=== PATIENT | male | born 1960 | race Caucasian/White ===

== ENCOUNTER → 2017-06-23 15:24 | Outpatient (CLI) | payer OTHER, SELFPAY ==
--- NOTE | 2017-06-23 15:30 | RAD_ITS ---
STUDY: X-RAY - LUMBAR SPINE REASON FOR EXAM: Male, 56 years old. lumbago with sciatica TECHNIQUE: 5 view(s) of the lumbar spine were obtained. COMPARISON: None FINDINGS: Normal lumbar lordosis. There is multilevel endplate spondylosis of the lumbar vertebrae. There is multi-level degenerative disc disease with multi-level disc space narrowing. The soft tissue structures are unremarkable. RAD/L/S Spine Min 4 Views IMPRESSION: Degenerative changes of the spine. Electronically Signed: Zhanna Vaughan MD at 10:43 EDT Tel , Service support ,
== END ==
PROVIDERS: Family Provider Family Medicine; PCP Family Medicine; Visit Provider Family Medicine
DX: M54.40 Lumbago with sciatica, unspecified side (principal)
CPT/HCPCS: 72110

== ENCOUNTER → 2017-12-09 07:13 | Outpatient (CLI) | payer OTHER, SELFPAY ==
[2017-12-09 10:36] LABS: T4 Free Direct 1.28 ng/dL (0.76-1.46); Thyroid Stim Hormone (TSH) 1.74 uIU/mL (0.358-3.74)
== END ==
PROVIDERS: Family Provider Family Medicine; PCP Family Medicine; Visit Provider Family Medicine
DX: E03.9 Hypothyroidism, unspecified (principal)
CPT/HCPCS: 36415; 84439; 84443

== ENCOUNTER → 2018-12-21 15:58 | Outpatient (CLI) | payer OTHER, SELFPAY ==
[2018-12-21 17:29] LABS: Basophil# 0.06 X10^3/uL; Basophil% 0.9 % (0-1); Eosinophil# 0.28 X10^3/uL; Eosinophils% 4.4 % (0-5); Hematocrit 45.5 % (40-54); Hemoglobin 15.6 g/dL (13.0-16.5); Lymphocyte % 39.1 % (19-41); Mean Corp Hgb Conc 34.3 g/dL (32-36); Mean Corpuscular Hgb 30.4 pg (27.0-32.0); Mean Corpuscular Volume 88.7 fL (80-94); Mean Platelet Vol. 9.3 fl (6.2-12.0); Monocyte# 0.59 X10^3/uL; Monocyte% 9.2 % (0-10); NRBC Flagged by Analyzer 0 % (0-5); Neutrophil # 2.97 X10^3/uL (2.7-7.7); Neutrophil % 46.4 % (47-70); Platelet Count 285 K/mm3 (150-450); RBC Distribution Width CV 12.4 % (11.6-14.6); RBC Distribution Width SD 40.6 fl (35.1-43.9); Red Blood Count 5.13 M/mm3 (4.6-6.2); White Blood Count 6.4 K/mm3 (4.4-11.0)
[2018-12-21 17:48] LABS: Vitamin D,25 Hydroxy 22.5 ng/mL (29.95-100.01)
[2018-12-21 17:56] LABS: Erythrocyte Sedimentation Rate 18 mm/hr (0-20)
[2018-12-21 18:28] LABS: ALB/GLOB Ratio 1.1 RATIO (0.9-2.4); AST(SGOT) 20 U/L (15-37); Alanine Aminotransfer ALT/SGPT 36 U/L (16-61); Albumin, Serum 4.1 g/dL (3.2-5.0); Alkaline Phosphatase 66 U/L (45-117); Anion Gap 7 (5-15); BUN 11 mg/dL (7-18); BUN/Creat Ratio 9.7 RATIO (10-20); CRP < 2.90 mg/L (0.0-3.0); Calcium,Total 9.1 mg/dL (8.5-10.1); Chloride 107 mmol/L (98-107); Cholesterol 194 mg/dL (200); Creatinine, Serum 1.13 mg/dL (0.70-1.30); EST Glomerular Filtration Rate 71 mL/min (>60); Est Glom Filt Rate - Afr Amer 86 mL/min (>60); Globulin 3.9 g/dL (2.2-4.2); Glucose 100 mg/dL (74-106); High Density Lipoprotein 38 mg/dL; Potassium 3.8 mmol/L (3.5-5.1); Sodium Level 140 mmol/L (136-145); T4 Free Direct 1.58 ng/dL (0.76-1.46); Thyroid Stim Hormone (TSH) 0.26 uIU/mL (0.358-3.74); Triglycerides 262 mg/dL; Very Low Density Lipoprotein 52 mg/dL (5-40)
== END ==
PROVIDERS: Family Provider Family Medicine; PCP Family Medicine; Referring Provider Internal Medicine Rheumatology; Visit Provider Internal Medicine Rheumatology
DX: Z00.00 Encounter for general adult medical examination without abnormal findings (principal); M06.9 Rheumatoid arthritis, unspecified; E03.9 Hypothyroidism, unspecified; E55.9 Vitamin D deficiency, unspecified
CPT/HCPCS: 36415; 80053; 80061; 82306; 84439; 84443; 85025; 85652; 86140

== ENCOUNTER → 2019-03-14 14:40 | Outpatient (CLI) | payer OTHER, SELFPAY ==
[2019-03-14 18:13] LABS: Thyroid Stim Hormone (TSH) 2.05 uIU/mL (0.358-3.74); Vitamin D,25 Hydroxy 16.5 ng/mL (29.95-100.01)
== END ==
PROVIDERS: Family Provider Family Medicine; PCP Family Medicine; Referring Provider Family Medicine; Visit Provider Family Medicine
DX: E55.9 Vitamin D deficiency, unspecified (principal); E03.9 Hypothyroidism, unspecified
CPT/HCPCS: 36415; 82306; 84443

== ENCOUNTER → 2019-08-30 09:21 | Outpatient (CLI) | payer OTHER, SELFPAY ==
--- NOTE | 2019-08-30 09:23 | RAD_ITS ---
STUDY: X-RAY CHEST REASON FOR EXAM: Male, 58 years old. RA, [facility] drug therapy TECHNIQUE: PA and lateral views of the chest. COMPARISON: 2010 FINDINGS: Underexpanded, there are chronic interstitial changes in both lung christopher and subtle superimposed patchy opacifications in the lung bases which may represent atelectasis or early infiltrates. No demonstrated effusions. There is no demonstrated pleural abnormality. Normal size heart. Normal mediastinum and noreen. Normal visualized pulmonary arteries. Normal visualized aortic arch and descending thoracic aorta. Normal visualized thoracic spine. Normal visualized ribs, clavicles, and shoulders. There is no demonstrated abnormality of the visualized soft tissue structures of the upper abdomen. RAD/Chest PA and Lateral IMPRESSION: Chronic interstitial changes with superimposed patchy opacifications in both lung bases. Findings suggest either atelectasis or early infiltrates, follow-up recommended to assure resolution Electronically Signed: Trenton Brizuela MD at 9:36 EDT , Service support ,
[2019-08-30 12:43] LABS: Absolute Neutrophil Count 2.8 X10^3/uL (2.0-7.7); Basophil# 0.05 X10^3/uL; Basophil% 0.9 % (0-1); Eosinophil# 0.25 X10^3/uL; Eosinophils% 4.3 % (0-5); Hematocrit 47.7 % (40-54); Hemoglobin 16.1 g/dL (13.0-16.5); Lymphocyte % 37.9 % (19-41); Mean Corp Hgb Conc 33.8 g/dL (32-36); Mean Corpuscular Hgb 31.1 pg (27.0-32.0); Mean Corpuscular Volume 92.3 fL (80-94); Mean Platelet Vol. 9.9 fl (6.2-12.0); Monocyte# 0.46 X10^3/uL; Monocyte% 7.9 % (0-10); NRBC Flagged by Analyzer 0 % (0-5); Neutrophil # 2.83 X10^3/uL (2.7-7.7); Neutrophil % 48.8 % (47-70); Platelet Count 294 K/mm3 (150-450); RBC Distribution Width CV 12.7 % (11.6-14.6); Red Blood Count 5.17 M/mm3 (4.6-6.2); White Blood Count 5.8 K/mm3 (4.4-11.0)
[2019-08-30 12:56] LABS: Erythrocyte Sedimentation Rate 15 mm/hr (0-20)
[2019-08-30 13:02] LABS: Vitamin D,25 Hydroxy 85.6 ng/mL
[2019-08-30 13:09] LABS: AST(SGOT) 16 U/L (15-37); Alanine Aminotransfer ALT/SGPT 36 U/L (16-61); Albumin, Serum 4.1 g/dL (3.2-5.0); Alkaline Phosphatase 74 U/L (45-117); Anion Gap 7 (5-15); BUN 11 mg/dL (7-18); BUN/Creat Ratio 10.4 RATIO (10-20); CRP < 2.90 mg/L (0.0-3.0); Calcium,Total 9.2 mg/dL (8.5-10.1); Chloride 107 mmol/L (98-107); Creatinine, Serum 1.06 mg/dL (0.70-1.30); EST Glomerular Filtration Rate 77 mL/min (>60); Est Glom Filt Rate - Afr Amer 93 mL/min (>60); Glucose 97 mg/dL (74-106); Potassium 4.1 mmol/L (3.5-5.1); Protein, Total 8.1 g/dL (6.4-8.2); Sodium Level 141 mmol/L (136-145)
[2019-08-30 13:39] LABS: Hepatitis B Surface Antibody Non-Reactive; Hepatitis B Surface Antigen Non-Reactive (Nonreactive); Hepatitis C Antibody Non-Reactive (Nonreactive)
[2019-08-31 18:20] LABS: ANTINUCLEAR ANTIBODIES DIRECT Positive (Negative)
[2019-09-01 20:07] LABS: QNTFERON TB Mitogen Value > 10.00 IU/mL (.); QNTFERON TB Nil Value 0.02 IU/mL (.); QNTFERON TB1+ Ag Value 0.01 IU/mL (.); QNTFERON TB2+ Ag Value 0.02 IU/mL (.)
[2019-09-02 00:39] LABS: CCP IgG Antibodies > 250 units (0-19); Hepatitis B Core AB IgM Negative (Negative); QNTIFERON TB Positive Criteria Negative (Negative)
== END ==
PROVIDERS: PCP Family Medicine; Referring Provider Internal Medicine Rheumatology; Visit Provider Internal Medicine Rheumatology
DX: M05.79 Rheumatoid arthritis with rheumatoid factor of multiple sites without organ or systems involvement (principal); Z79.899 Other long term (current) drug therapy; E03.9 Hypothyroidism, unspecified; E55.9 Vitamin D deficiency, unspecified
CPT/HCPCS: 36415; 71046; 80053; 82306; 85025; 85652; 86038; 86140; 86200; 86431; 86480; 86705; 86706; 86803; 87340

== ENCOUNTER → 2019-09-13 15:50 | Outpatient (CLI) | payer OTHER, SELFPAY ==
[2019-09-13 16:59] LABS: EXAGEN MAILED SPECIMEN
[2019-09-13 17:38] LABS: Color, Urine Yellow (Yellow); Glucose, Dipstick Normal (Normal); Ketone-Dipstick Negative (Negative); Leukocyte Esterase-Dipstick Negative /ul (Negative); Nitrite-Dipstick Negative (Negative); Occult Blood-Urine Negative /ul (Negative); Protein-Dipstick Negative (Negative); Urine Bilirubin Dipstick Negative (Negative); Urine Clarity Clear (Clear); Urine Urobilinogen Normal (Normal)
[2019-09-13 18:19] LABS: Protein, Urine (Random) < 6.0 mg/dL (<11.9)
== END ==
PROVIDERS: PCP Family Medicine; Referring Provider Internal Medicine Rheumatology; Visit Provider Internal Medicine Rheumatology
DX: M05.79 Rheumatoid arthritis with rheumatoid factor of multiple sites without organ or systems involvement (principal); Z79.899 Other long term (current) drug therapy; E03.9 Hypothyroidism, unspecified; R76.8 Other specified abnormal immunological findings in serum
CPT/HCPCS: 81002; 82570; 84156

== ENCOUNTER → 2020-03-13 15:15 | Outpatient (CLI) | payer OTHER, SELFPAY ==
[2020-03-13 17:58] LABS: Absolute Lymphocyte Count 2.72 X10^3/uL (0.83-4.51); Absolute Neutrophil Count 3.2 X10^3/uL (2.0-7.7); Basophil# 0.05 X10^3/uL; Basophil% 0.7 % (0-1); Eosinophil# 0.18 X10^3/uL; Eosinophils% 2.7 % (0-5); Hematocrit 43.8 % (40-54); Hemoglobin 14.9 g/dL (13.0-16.5); Lymphocyte # 2.72 X10^3/ul (4.0); Lymphocyte % 40.4 % (19-41); Mean Corpuscular Hgb 30.5 pg (27.0-32.0); Mean Corpuscular Volume 89.6 fL (80-94); Monocyte# 0.55 X10^3/uL; Monocyte% 8.2 % (0-10); NRBC Flagged by Analyzer 0 % (0-5); Neutrophil # 3.21 X10^3/uL (2.7-7.7); Neutrophil % 47.7 % (47-70); Platelet Count 327 K/mm3 (150-450); RBC Distribution Width CV 12.2 % (11.6-14.6); RBC Distribution Width SD 39.8 fl (35.1-43.9); Red Blood Count 4.89 M/mm3 (4.6-6.2); White Blood Count 6.7 K/mm3 (4.4-11.0)
[2020-03-13 18:28] LABS: AST(SGOT) 24 U/L (15-37); Alanine Aminotransfer ALT/SGPT 31 U/L (16-61); Alkaline Phosphatase 71 U/L (45-117); Anion Gap 7 (5-15); BUN 14 mg/dL (7-18); BUN/Creat Ratio 12.5 RATIO (10-20); Calcium,Total 9.1 mg/dL (8.5-10.1); Chloride 106 mmol/L (98-107); Creatinine, Serum 1.12 mg/dL (0.70-1.30); EST Glomerular Filtration Rate 72 mL/min (>60); Est Glom Filt Rate - Afr Amer 87 mL/min (>60); Glucose 79 mg/dL (74-106); Potassium 3.9 mmol/L (3.5-5.1); Sodium Level 139 mmol/L (136-145)
== END ==
PROVIDERS: PCP Family Medicine; Referring Provider Internal Medicine Rheumatology; Visit Provider Internal Medicine Rheumatology
DX: M05.741 Rheumatoid arthritis with rheumatoid factor of right hand without organ or systems involvement (principal); Z79.899 Other long term (current) drug therapy; R76.8 Other specified abnormal immunological findings in serum; E03.9 Hypothyroidism, unspecified
CPT/HCPCS: 36415; 80053; 85025

== ENCOUNTER → 2020-08-28 15:20 | Outpatient (CLI) | payer OTHER, SELFPAY ==
[2020-08-28 17:56] LABS: Absolute Lymphocyte Count 2.61 X10^3/uL (0.83-4.51); Absolute Neutrophil Count 3.5 X10^3/uL (2.0-7.7); Basophil# 0.05 X10^3/uL; Basophil% 0.7 % (0-1); Eosinophil# 0.25 X10^3/uL; Eosinophils% 3.6 % (0-5); Hematocrit 47.3 % (40-54); Hemoglobin 15.5 g/dL (13.0-16.5); Lymphocyte # 2.61 X10^3/ul (0.83-4.51); Lymphocyte % 37.8 % (19-41); Mean Corp Hgb Conc 32.8 g/dL (32-36); Mean Corpuscular Hgb 29.8 pg (27.0-32.0); Mean Corpuscular Volume 90.8 fL (80-94); Mean Platelet Vol. 9.9 fl (6.2-12.0); Monocyte# 0.51 X10^3/uL; Monocyte% 7.4 % (0-10); NRBC Flagged by Analyzer 0 % (0-5); Neutrophil # 3.47 X10^3/uL (2.7-7.7); Neutrophil % 50.2 % (47-70); Platelet Count 286 K/mm3 (150-450); RBC Distribution Width CV 12.6 % (11.6-14.6); RBC Distribution Width SD 41.6 fl (35.1-43.9); Red Blood Count 5.21 M/mm3 (4.6-6.2); White Blood Count 6.9 K/mm3 (4.4-11.0)
[2020-08-28 18:17] LABS: Vitamin D,25 Hydroxy 49.6 ng/mL
[2020-08-28 18:19] LABS: Cholesterol 194 mg/dL (200); High Density Lipoprotein 33 mg/dL; Thyroid Stim Hormone (TSH) 2.61 uIU/mL (0.358-3.74); Triglycerides 364 mg/dL; Very Low Density Lipoprotein 73 mg/dL (5-40)
[2020-08-28 18:42] LABS: ALB/GLOB Ratio 1.3 RATIO (0.9-2.4); AST(SGOT) 19 U/L (15-37); Alanine Aminotransfer ALT/SGPT 34 U/L (16-61); Albumin, Serum 4.4 g/dL (3.2-5.0); Alkaline Phosphatase 63 U/L (45-117); Anion Gap 8 (5-15); BUN 19 mg/dL (7-18); BUN/Creat Ratio 16.5 RATIO (10-20); Calcium,Total 9.1 mg/dL (8.5-10.1); Chloride 105 mmol/L (98-107); Creatinine, Serum 1.15 mg/dL (0.70-1.30); EST Glomerular Filtration Rate 69 mL/min (>60); Est Glom Filt Rate - Afr Amer 84 mL/min (>60); Globulin 3.4 g/dL (2.2-4.2); Glucose 86 mg/dL (74-106); Potassium 3.8 mmol/L (3.5-5.1); Protein, Total 7.8 g/dL (6.4-8.2); Sodium Level 140 mmol/L (136-145)
== END ==
PROVIDERS: Internal Medicine Rheumatology; PCP Family Medicine; Referring Provider Family Medicine; Visit Provider Family Medicine
DX: Z00.00 Encounter for general adult medical examination without abnormal findings (principal); M05.70 Rheumatoid arthritis with rheumatoid factor of unspecified site without organ or systems involvement; Z79.899 Other long term (current) drug therapy; R76.8 Other specified abnormal immunological findings in serum; E03.9 Hypothyroidism, unspecified; E55.9 Vitamin D deficiency, unspecified
CPT/HCPCS: 36415; 80053; 80061; 82306; 84443; 85025

== ENCOUNTER → 2021-02-22 07:13 | Outpatient (CLI) | payer OTHER, SELFPAY ==
[2021-02-22 10:02] LABS: Absolute Lymphocyte Count 3.05 X10^3/uL (0.83-4.51); Absolute Neutrophil Count 2.4 X10^3/uL (2.0-7.7); Basophil# 0.06 X10^3/uL; Basophil% 0.9 % (0-1); Eosinophil# 0.28 X10^3/uL; Eosinophils% 4.3 % (0-5); Hematocrit 46.8 % (40-54); Hemoglobin 15.6 g/dL (13.0-16.5); Lymphocyte # 3.05 X10^3/ul (0.83-4.51); Lymphocyte % 47.2 % (19-41); Mean Corp Hgb Conc 33.3 g/dL (32-36); Mean Corpuscular Hgb 30.4 pg (27.0-32.0); Mean Corpuscular Volume 91.2 fL (80-94); Mean Platelet Vol. 9.8 fl (6.2-12.0); Monocyte# 0.69 X10^3/uL; Monocyte% 10.7 % (0-10); NRBC Flagged by Analyzer 0 % (0-5); Neutrophil # 2.37 X10^3/uL (2.7-7.7); Neutrophil % 36.7 % (47-70); Platelet Count 287 K/mm3 (150-450); RBC Distribution Width CV 12.6 % (11.6-14.6); RBC Distribution Width SD 42.1 fl (35.1-43.9); Red Blood Count 5.13 M/mm3 (4.6-6.2); White Blood Count 6.5 K/mm3 (4.4-11.0)
[2021-02-22 10:17] LABS: ALB/GLOB Ratio 1.1 RATIO (0.9-2.4); AST(SGOT) 22 U/L (15-37); Alanine Aminotransfer ALT/SGPT 39 U/L (16-61); Albumin, Serum 3.9 g/dL (3.2-5.0); Alkaline Phosphatase 64 U/L (45-117); Anion Gap 2 (5-15); BUN 19 mg/dL (7-18); BUN/Creat Ratio 16.5 RATIO (10-20); Chloride 109 mmol/L (98-107); Creatinine, Serum 1.15 mg/dL (0.70-1.30); EST Glomerular Filtration Rate 69 mL/min (>60); Est Glom Filt Rate - Afr Amer 84 mL/min (>60); Globulin 3.7 g/dL (2.2-4.2); Glucose 99 mg/dL (74-106); Potassium 4.4 mmol/L (3.5-5.1); Protein, Total 7.6 g/dL (6.4-8.2); Sodium Level 140 mmol/L (136-145)
== END ==
PROVIDERS: PCP Family Medicine; Referring Provider Internal Medicine Rheumatology; Visit Provider Internal Medicine Rheumatology
DX: M05.70 Rheumatoid arthritis with rheumatoid factor of unspecified site without organ or systems involvement (principal); Z79.899 Other long term (current) drug therapy; R76.8 Other specified abnormal immunological findings in serum; E03.9 Hypothyroidism, unspecified
CPT/HCPCS: 36415; 80053; 85025

== ENCOUNTER → 2021-08-07 | Outpatient (CLI) | payer OTHER, SELFPAY ==
[2021-08-07 17:34] LABS: Absolute Lymphocyte Count 2.44 X10^3/uL (0.83-4.51); Absolute Neutrophil Count 3.6 X10^3/uL (2.0-7.7); Basophil# 0.06 X10^3/uL; Basophil% 0.9 % (0-1); Eosinophils% 2.9 % (0-5); Hematocrit 44.2 % (40-54); Lymphocyte # 2.44 X10^3/ul (0.83-4.51); Lymphocyte % 35.4 % (19-41); Mean Corp Hgb Conc 33.9 g/dL (32-36); Mean Corpuscular Hgb 30.5 pg (27.0-32.0); Mean Corpuscular Volume 89.8 fL (80-94); Mean Platelet Vol. 9.2 fl (6.2-12.0); Monocyte# 0.56 X10^3/uL; Monocyte% 8.1 % (0-10); NRBC Flagged by Analyzer 0 % (0-5); Neutrophil # 3.63 X10^3/uL (2.7-7.7); Neutrophil % 52.6 % (47-70); Platelet Count 255 K/mm3 (150-450); RBC Distribution Width CV 12.7 % (11.6-14.6); RBC Distribution Width SD 41.7 fl (35.1-43.9); Red Blood Count 4.92 M/mm3 (4.6-6.2); White Blood Count 6.9 K/mm3 (4.4-11.0)
[2021-08-07 17:49] LABS: Vitamin D,25 Hydroxy 55.4 ng/mL
[2021-08-07 18:04] LABS: ALB/GLOB Ratio 1.1 RATIO (0.9-2.4); AST(SGOT) 24 U/L (15-37); Alanine Aminotransfer ALT/SGPT 33 U/L (16-61); Albumin, Serum 3.9 g/dL (3.2-5.0); Alkaline Phosphatase 56 U/L (45-117); Anion Gap 7 (5-15); BUN 19 mg/dL (7-18); BUN/Creat Ratio 16.2 RATIO (10-20); Calcium,Total 8.6 mg/dL (8.5-10.1); Chloride 105 mmol/L (98-107); Cholesterol 200 mg/dL (200); Creatinine, Serum 1.17 mg/dL (0.70-1.30); EST Glomerular Filtration Rate 68 mL/min (>60); Est Glom Filt Rate - Afr Amer 82 mL/min (>60); Globulin 3.5 g/dL (2.2-4.2); Glucose 88 mg/dL (74-106); High Density Lipoprotein 43 mg/dL; Potassium 3.7 mmol/L (3.5-5.1); Protein, Total 7.4 g/dL (6.4-8.2); Sodium Level 138 mmol/L (136-145); Triglycerides 137 mg/dL; Very Low Density Lipoprotein 27 mg/dL (5-40)
== END | disposition home or self-care (01) ==
PROVIDERS: PCP Family Medicine; Referring Provider Family Medicine; Visit Provider Family Medicine
DX: M05.70 Rheumatoid arthritis with rheumatoid factor of unspecified site without organ or systems involvement (principal); Z79.899 Other long term (current) drug therapy; R76.8 Other specified abnormal immunological findings in serum; E03.9 Hypothyroidism, unspecified; Z12.5 Encounter for screening for malignant neoplasm of prostate; Z13.220 Encounter for screening for lipoid disorders; N52.9 Male erectile dysfunction, unspecified; E55.9 Vitamin D deficiency, unspecified
CPT/HCPCS: 80053; 80061; 82306; 84153; 84403; 84443; 85025; G0103

== ENCOUNTER → 2021-10-08 | Outpatient (CLI) | payer OTHER, SELFPAY ==
[2021-10-08 18:35] LABS: T4 Free Direct 1.31 ng/dL (0.76-1.46); Thyroid Stim Hormone (TSH) 0.95 uIU/mL (0.358-3.74)
== END | disposition home or self-care (01) ==
LOC: MFPLAB 16:31
PROVIDERS: PCP Family Medicine; Referring Provider Family Medicine; Visit Provider Family Medicine
DX: E03.9 Hypothyroidism, unspecified (principal)
CPT/HCPCS: 36415; 84439; 84443

== ENCOUNTER → 2022-02-14 | Outpatient (CLI) | payer OTHER, SELFPAY ==
[2022-02-14 12:09] LABS: Absolute Lymphocyte Count 2.19 X10^3/uL (0.83-4.51); Absolute Neutrophil Count 3.5 X10^3/uL (2.0-7.7); Basophil# 0.06 X10^3/uL; Basophil% 0.9 % (0-1); Eosinophils% 4.5 % (0-5); Hematocrit 47.4 % (40-54); Hemoglobin 16.1 g/dL (13.0-16.5); Lymphocyte # 2.19 X10^3/ul (0.83-4.51); Lymphocyte % 32.7 % (19-41); Mean Corpuscular Hgb 30.6 pg (27.0-32.0); Mean Corpuscular Volume 89.9 fL (80-94); Mean Platelet Vol. 9.6 fl (6.2-12.0); Monocyte# 0.61 X10^3/uL; Monocyte% 9.1 % (0-10); NRBC Flagged by Analyzer 0 % (0-5); Neutrophil # 3.51 X10^3/uL (2.7-7.7); Neutrophil % 52.5 % (47-70); Platelet Count 295 K/mm3 (150-450); RBC Distribution Width CV 12.3 % (11.6-14.6); RBC Distribution Width SD 40.7 fl (35.1-43.9); Red Blood Count 5.27 M/mm3 (4.6-6.2); White Blood Count 6.7 K/mm3 (4.4-11.0)
[2022-02-14 12:35] LABS: ALB/GLOB Ratio 1.3 RATIO (0.9-2.4); AST(SGOT) 23 U/L (15-37); Alanine Aminotransfer ALT/SGPT 36 U/L (16-61); Albumin, Serum 4.3 g/dL (3.2-5.0); Alkaline Phosphatase 64 U/L (45-117); Anion Gap 8 (5-15); BUN 15 mg/dL (7-18); BUN/Creat Ratio 15.2 RATIO (10-20); Calcium,Total 9.4 mg/dL (8.5-10.1); Chloride 105 mmol/L (98-107); Creatinine, Serum 0.98 mg/dL (0.70-1.30); EST Glomerular Filtration Rate 83 mL/min (>60); Est Glom Filt Rate - Afr Amer 100 mL/min (>60); Globulin 3.3 g/dL (2.2-4.2); Glucose 100 mg/dL (74-106); Potassium 4.3 mmol/L (3.5-5.1); Protein, Total 7.6 g/dL (6.4-8.2); Sodium Level 138 mmol/L (136-145)
== END | disposition home or self-care (01) ==
LOC: MTLAB 10:02
PROVIDERS: PCP Family Medicine; Referring Provider Internal Medicine Rheumatology; Visit Provider Internal Medicine Rheumatology
DX: M05.70 Rheumatoid arthritis with rheumatoid factor of unspecified site without organ or systems involvement (principal); Z79.899 Other long term (current) drug therapy; R76.8 Other specified abnormal immunological findings in serum; E03.9 Hypothyroidism, unspecified
CPT/HCPCS: 36415; 80053; 85025

== ENCOUNTER → 2022-08-08 | Outpatient (CLI) | payer OTHER, SELFPAY ==
[2022-08-08 17:47] LABS: Absolute Neutrophil Count 4.5 X10^3/uL (2.0-7.7); Basophil# 0.06 X10^3/uL; Basophil% 0.8 % (0-1); Eosinophil# 0.19 X10^3/uL; Eosinophils% 2.6 % (0-5); Hematocrit 46.2 % (40-54); Hemoglobin 15.5 g/dL (13.0-16.5); Lymphocyte % 28.2 % (19-41); Mean Corp Hgb Conc 33.5 g/dL (32-36); Mean Corpuscular Hgb 29.9 pg (27.0-32.0); Mean Corpuscular Volume 89.2 fL (80-94); Mean Platelet Vol. 9.7 fl (6.2-12.0); Monocyte% 8.1 % (0-10); NRBC Flagged by Analyzer 0 % (0-5); Neutrophil # 4.48 X10^3/uL (2.7-7.7); Neutrophil % 60.2 % (47-70); Platelet Count 302 K/mm3 (150-450); RBC Distribution Width CV 12.4 % (11.6-14.6); RBC Distribution Width SD 40.8 fl (35.1-43.9); Red Blood Count 5.18 M/mm3 (4.6-6.2); White Blood Count 7.4 K/mm3 (4.4-11.0)
[2022-08-08 18:18] LABS: ALB/GLOB Ratio 1.1 RATIO (0.9-2.4); AST(SGOT) 23 U/L (15-37); Alanine Aminotransfer ALT/SGPT 33 U/L (16-61); Alkaline Phosphatase 65 U/L (45-117); Anion Gap 6 (5-15); BUN 19 mg/dL (7-18); BUN/Creat Ratio 15.3 RATIO (10-20); Calcium,Total 9.1 mg/dL (8.5-10.1); Chloride 109 mmol/L (98-107); Creatinine, Serum 1.24 mg/dL (0.70-1.30); EST Glomerular Filtration Rate 63 mL/min (>60); Est Glom Filt Rate - Afr Amer 77 mL/min (>60); Globulin 3.7 g/dL (2.2-4.2); Glucose 102 mg/dL (74-106); Potassium 4.1 mmol/L (3.5-5.1); Protein, Total 7.7 g/dL (6.4-8.2); Sodium Level 142 mmol/L (136-145)
== END | disposition home or self-care (01) ==
LOC: MTLAB 15:05
PROVIDERS: PCP Family Medicine; Referring Provider Internal Medicine Rheumatology; Visit Provider Internal Medicine Rheumatology
DX: Z79.899 Other long term (current) drug therapy (principal); R76.8 Other specified abnormal immunological findings in serum; E03.9 Hypothyroidism, unspecified
CPT/HCPCS: 36415; 80053; 85025

== ENCOUNTER → 2022-11-17 | Outpatient (CLI) | payer OTHER, SELFPAY ==
[2022-11-17 11:08] LABS: Cholesterol 187 mg/dL (200); High Density Lipoprotein 44 mg/dL; Iron 136 ug/dL (65-175); PSA,Total - Annual Screen 2.47 ng/mL (0.00-4.00); T4 Free Direct 1.61 ng/dL (0.76-1.46); Thyroid Stim Hormone (TSH) 0.04 uIU/mL (0.358-3.74); Triglycerides 144 mg/dL; Very Low Density Lipoprotein 29 mg/dL (5-40)
[2022-11-17 11:40] LABS: Erythrocyte Sedimentation Rate 10 mm/hr (0-20)
[2022-11-17 12:40] LABS: Vitamin B12 258 pg/mL (211-911); Vitamin D,25 Hydroxy 71.4 ng/mL
== END | disposition home or self-care (01) ==
PROVIDERS: PCP Family Medicine; Referring Provider Family Medicine; Visit Provider Family Medicine
DX: E03.9 Hypothyroidism, unspecified (principal); Z13.220 Encounter for screening for lipoid disorders; Z12.5 Encounter for screening for malignant neoplasm of prostate; E55.9 Vitamin D deficiency, unspecified; R53.83 Other fatigue
CPT/HCPCS: 36415; 80061; 82306; 82607; 83540; 84153; 84403; 84439; 84443; 85652; G0103

== ENCOUNTER → 2023-01-27 | Outpatient (CLI) | payer OTHER, SELFPAY ==
[2023-01-27 17:51] LABS: Absolute Lymphocyte Count 2.51 X10^3/uL (0.83-4.51); Absolute Neutrophil Count 4.4 X10^3/uL (2.0-7.7); Basophil# 0.05 X10^3/uL; Basophil% 0.6 % (0-1); Eosinophil# 0.28 X10^3/uL; Eosinophils% 3.5 % (0-5); Hematocrit 47.4 % (40-54); Hemoglobin 15.5 g/dL (13.0-16.5); Lymphocyte # 2.51 X10^3/ul (0.83-4.51); Lymphocyte % 31.3 % (19-41); Mean Corp Hgb Conc 32.7 g/dL (32-36); Mean Corpuscular Hgb 29.8 pg (27.0-32.0); Mean Corpuscular Volume 91.2 fL (80-94); Mean Platelet Vol. 9.6 fl (6.2-12.0); Monocyte# 0.72 X10^3/uL; NRBC Flagged by Analyzer 0 % (0-5); Neutrophil # 4.44 X10^3/uL (2.7-7.7); Neutrophil % 55.5 % (47-70); Platelet Count 285 K/mm3 (150-450); RBC Distribution Width CV 12.6 % (11.6-14.6); RBC Distribution Width SD 42.4 fl (35.1-43.9)
[2023-01-27 18:26] LABS: ALB/GLOB Ratio 1.1 RATIO (0.9-2.4); AST(SGOT) 18 U/L (15-37); Alanine Aminotransfer ALT/SGPT 31 U/L (16-61); Albumin, Serum 3.9 g/dL (3.2-5.0); Alkaline Phosphatase 63 U/L (45-117); Anion Gap 5 (5-15); BUN 16 mg/dL (7-18); BUN/Creat Ratio 13.7 RATIO (10-20); Calcium,Total 8.9 mg/dL (8.5-10.1); Chloride 108 mmol/L (98-107); Creatinine, Serum 1.17 mg/dL (0.70-1.30); EST Glomerular Filtration Rate 68 mL/min (>60); Est Glom Filt Rate - Afr Amer 82 mL/min (>60); Globulin 3.6 g/dL (2.2-4.2); Glucose 80 mg/dL (74-106); Potassium 4.2 mmol/L (3.5-5.1); Protein, Total 7.5 g/dL (6.4-8.2); Sodium Level 140 mmol/L (136-145); T4 Free Direct 1.16 ng/dL (0.76-1.46); Thyroid Stim Hormone (TSH) 0.66 uIU/mL (0.358-3.74)
== END | disposition home or self-care (01) ==
LOC: MTLAB 15:18
PROVIDERS: PCP Family Medicine; Referring Provider Family Medicine; Visit Provider Family Medicine
DX: M05.70 Rheumatoid arthritis with rheumatoid factor of unspecified site without organ or systems involvement (principal); Z79.899 Other long term (current) drug therapy
CPT/HCPCS: 36415; 80053; 84439; 84443; 85025

== ENCOUNTER → 2023-07-16 | Outpatient (CLI) | payer OTHER, SELFPAY ==
[2023-07-16 09:55] LABS: Basophil# 0.08 X10^3/uL; Basophil% 1.3 % (0-1); Eosinophils% 4.8 % (0-5); Hematocrit 48.7 % (40-54); Hemoglobin 16.3 g/dL (13.0-16.5); Lymphocyte % 36.9 % (19-41); Mean Corp Hgb Conc 33.5 g/dL (32-36); Mean Corpuscular Hgb 30.1 pg (27.0-32.0); Mean Platelet Vol. 9.5 fl (6.2-12.0); Monocyte# 0.56 X10^3/uL; NRBC Flagged by Analyzer 0 % (0-5); Neutrophil # 2.99 X10^3/uL (2.7-7.7); Neutrophil % 47.8 % (47-70); Platelet Count 264 K/mm3 (150-450); RBC Distribution Width CV 12.7 % (11.6-14.6); RBC Distribution Width SD 41.5 fl (35.1-43.9); Red Blood Count 5.41 M/mm3 (4.6-6.2); White Blood Count 6.2 K/mm3 (4.4-11.0)
[2023-07-16 10:31] LABS: ALB/GLOB Ratio 1.1 RATIO (0.9-2.4); AST(SGOT) 22 U/L (15-37); Alanine Aminotransfer ALT/SGPT 28 U/L (16-61); Alkaline Phosphatase 63 U/L (45-117); Anion Gap 5 (5-15); BUN 15 mg/dL (7-18); BUN/Creat Ratio 13.3 RATIO (10-20); Calcium,Total 9.2 mg/dL (8.5-10.1); Chloride 108 mmol/L (98-107); Creatinine, Serum 1.13 mg/dL (0.70-1.30); EST Glomerular Filtration Rate 70 mL/min (>60); Est Glom Filt Rate - Afr Amer 85 mL/min (>60); Globulin 3.7 g/dL (2.2-4.2); Glucose 105 mg/dL (74-106); Potassium 4.1 mmol/L (3.5-5.1); Protein, Total 7.7 g/dL (6.4-8.2); Sodium Level 138 mmol/L (136-145)
== END | disposition home or self-care (01) ==
LOC: MTLAB 08:56
PROVIDERS: PCP Family Medicine; Referring Provider Internal Medicine Rheumatology; Visit Provider Internal Medicine Rheumatology
DX: M05.70 Rheumatoid arthritis with rheumatoid factor of unspecified site without organ or systems involvement (principal); Z79.899 Other long term (current) drug therapy; R76.8 Other specified abnormal immunological findings in serum
CPT/HCPCS: 36415; 80053; 85025

== ENCOUNTER → 2024-01-07 | Outpatient (CLI) | payer OTHER, SELFPAY ==
[2024-01-07 12:20] LABS: Erythrocyte Sedimentation Rate 9 mm/hr (0-20)
[2024-01-07 12:30] LABS: Absolute Lymphocyte Count 2.01 X10^3/uL (0.83-4.51); Absolute Neutrophil Count 2.8 X10^3/uL (2.0-7.7); Basophil# 0.04 X10^3/uL; Basophil% 0.7 % (0-1); Eosinophil# 0.34 X10^3/uL; Hematocrit 47.5 % (40-54); Hemoglobin 16.1 g/dL (13.0-16.5); Lymphocyte # 2.01 X10^3/ul (0.83-4.51); Lymphocyte % 35.5 % (19-41); Mean Corp Hgb Conc 33.9 g/dL (32-36); Mean Corpuscular Hgb 30.6 pg (27.0-32.0); Mean Corpuscular Volume 90.1 fL (80-94); Mean Platelet Vol. 9.9 fl (6.2-12.0); Monocyte# 0.49 X10^3/uL; Monocyte% 8.7 % (0-10); NRBC Flagged by Analyzer 0 % (0-5); Neutrophil # 2.77 X10^3/uL (2.7-7.7); Neutrophil % 48.9 % (47-70); Platelet Count 277 K/mm3 (150-450); RBC Distribution Width CV 12.4 % (11.6-14.6); Red Blood Count 5.27 M/mm3 (4.6-6.2); White Blood Count 5.7 K/mm3 (4.4-11.0)
[2024-01-07 12:35] LABS: Vitamin D,25 Hydroxy 49.7 ng/mL
[2024-01-07 12:43] LABS: AST(SGOT) 23 U/L (15-37); Alanine Aminotransfer ALT/SGPT 29 U/L (16-61); Albumin, Serum 3.8 g/dL (3.2-5.0); Alkaline Phosphatase 67 U/L (45-117); Anion Gap 6 (5-15); BUN 14 mg/dL (7-18); BUN/Creat Ratio 13.1 RATIO (10-20); Calcium,Total 9.1 mg/dL (8.5-10.1); Chloride 107 mmol/L (98-107); Cholesterol 219 mg/dL (200); Creatinine, Serum 1.07 mg/dL (0.70-1.30); EST Glomerular Filtration Rate 75 mL/min (>60); Est Glom Filt Rate - Afr Amer 90 mL/min (>60); Globulin 3.9 g/dL (2.2-4.2); Glucose 98 mg/dL (74-106); High Density Lipoprotein 47 mg/dL; PSA,Total - Annual Screen 2.83 ng/mL (0.00-4.00); Potassium 4.1 mmol/L (3.5-5.1); Protein, Total 7.7 g/dL (6.4-8.2); Sodium Level 137 mmol/L (136-145); T4 Free Direct 1.16 ng/dL (0.76-1.46); Triglycerides 147 mg/dL; Very Low Density Lipoprotein 29 mg/dL (5-40)
== END | disposition home or self-care (01) ==
PROVIDERS: PCP Family Medicine; Referring Provider Internal Medicine Rheumatology; Visit Provider Internal Medicine Rheumatology
DX: M05.70 Rheumatoid arthritis with rheumatoid factor of unspecified site without organ or systems involvement (principal); Z79.899 Other long term (current) drug therapy; R76.8 Other specified abnormal immunological findings in serum; E03.9 Hypothyroidism, unspecified; M47.897 Other spondylosis, lumbosacral region; Z13.220 Encounter for screening for lipoid disorders; Z12.5 Encounter for screening for malignant neoplasm of prostate; E55.9 Vitamin D deficiency, unspecified
CPT/HCPCS: 36415; 80053; 80061; 82306; 84153; 84439; 84443; 85025; 85652; G0103

== ENCOUNTER → 2024-07-04 | Outpatient (CLI) | payer OTHER, SELFPAY ==
[2024-07-04 10:45] LABS: Absolute Lymphocyte Count 2.01 X10^3/uL (0.83-4.51); Absolute Neutrophil Count 3.3 X10^3/uL (2.0-7.7); Basophil# 0.05 X10^3/uL; Basophil% 0.8 % (0-1); Eosinophil# 0.26 X10^3/uL; Eosinophils% 4.2 % (0-5); Hematocrit 47.9 % (40-54); Hemoglobin 16.3 g/dL (13.0-16.5); Lymphocyte # 2.01 X10^3/ul (0.83-4.51); Lymphocyte % 32.6 % (19-41); Mean Corpuscular Volume 88.2 fL (80-94); Mean Platelet Vol. 9.8 fl (6.2-12.0); Monocyte# 0.56 X10^3/uL; Monocyte% 9.1 % (0-10); NRBC Flagged by Analyzer 0 % (0-5); Neutrophil # 3.27 X10^3/uL (2.7-7.7); Neutrophil % 53.1 % (47-70); Platelet Count 294 K/mm3 (150-450); RBC Distribution Width CV 12.9 % (11.6-14.6); RBC Distribution Width SD 41.9 fl (35.1-43.9); Red Blood Count 5.43 M/mm3 (4.6-6.2); White Blood Count 6.2 K/mm3 (4.4-11.0)
[2024-07-04 11:38] LABS: ALB/GLOB Ratio 1.3 RATIO (0.9-2.4); AST(SGOT) 22 U/L (<=37); Alanine Aminotransfer ALT/SGPT 22 U/L (<=46); Albumin, Serum 4.3 g/dL (3.4-4.8); Alkaline Phosphatase 75 U/L (40-129); Anion Gap 12 (5-15); BUN 16 mg/dL (4-19); BUN/Creat Ratio 14.6 RATIO (10-20); Calcium,Total 9.3 mg/dL (7.6-11.0); Chloride 104 mmol/L (98-108); Creatinine, Serum 1.09 mg/dL (0.70-1.20); EST Glomerular Filtration Rate 77 (>60); Globulin 3.4 g/dL (2.2-4.2); Glucose 106 mg/dL (70-99); Potassium 4.3 mmol/L (3.3-5.1); Protein, Total 7.6 g/dL (5.9-8.4); Sodium Level 137 mmol/L (133-145); Total Bilirubin 0.44 mg/dL (0.00-1.30)
== END | disposition home or self-care (01) ==
LOC: MTLAB 08:11
PROVIDERS: PCP Family Medicine; Referring Provider Family Medicine; Visit Provider Family Medicine
DX: M05.70 Rheumatoid arthritis with rheumatoid factor of unspecified site without organ or systems involvement (principal); Z79.899 Other long term (current) drug therapy; R76.8 Other specified abnormal immunological findings in serum
CPT/HCPCS: 36415; 80053; 84439; 84443; 85025

== ENCOUNTER → 2024-12-22 | Outpatient (CLI) | payer OTHER, SELFPAY ==
--- OUTSIDE RECORDS SUMMARY | 2024-12-22 14:11 | XMS RPT_ITS | CCD ---
Author Organization [facility] Informat ion Partnership [facility] Care Team Providers Care Consultant Intern Name Role Phone Saturnino Ragsdale Unavailable [phone] BRANDI CRANE LY Attending Unavailab SATURNINO Glass Primary Care Unavail able STADNADOLFO, BRANDI LY Attending Unavailab SATURNINO Glass Primary Care Unavail able STADNICK, BRANDI LY Attending Unavailab le REFERRING, SELF Referring Unavailable SATURNINO RAGSDALE Primary Care [facility]avail able [facility]available Vellanamador, Faith Attending Unavailable Vellanki, Faith Referring Unavailable Jn, Teodoroopher Consulting Unavailable Vellanamador, Faith Attending Unavailable Vellanki, Faith Referring Unavailable [facility], [facility] Unavailable Saturnino Ragsdale Attending Unavailable Jn, Christopher Referring Unavailable Vellanki, Faith Consulting Unavailable [facility], [facility] Unavailable LENA LUQUE Attending Unavailable SATURNINO RAGSDALE MARCUS Primary Care Unavail able Allergies Allergy Classification Reported Allergen(s) Allergy Type Date of Onset Reaction(s) Facility (8 sources) Penicillins; Translations: [Unknown] Propensity to adverse reactions to drug [facility] Medications Current Medications Medication Drug Class(es) Dates Sig (Normalized) Sig (Original) 0.8 ml adalimumab 50 mg/ml prefilled syringe (7 sources) Tumor Necrosis Factor Asha Start: 03-31-2019 inject 40 mg by subcutaneous injection every other week Humira 40 mg/0.8 mL syringe Indications: Seropositive rheumatoid arthritis (HCC) INJECT 40MG SUBCUTANEOUSLY EVERY 2 WEEKS 2 each 5 03/31/2019 Active Start: 03-24-2018 inject 0.8 mL by sub cutaneous injection once HUMIRA 40 mg/0.8 mL syringe Indications: Seropositive rheumatoid arthritis (HCC) Inject 0.8 mL (40 mg total) under the skin every 14 (fourteen) days . 6 each 3 03/24/2018 Active Start: 07-23-2017 HUMIRA 40 mg/0 .8 mL syringe Indications: Seropositive rheumatoid arthritis (HCC) Inject 0.8 mL (40 mg total) under the skin every 14 (fourteen) days. 6 each 3 07/23/2017 Active Start: 03-20-2017 End: 07-23-2017 HUMIRA 40 mg/0.8 mL syringe INJECT 40 MG UNDER THE SKIN EVERY 14 DAYS 6 each 1 03/20/2017 07/23/2017 Discontinued Start: 03-20-2017 HUMIRA 40 mg/0 .8 mL syringe INJECT 40 MG UNDER THE SKIN EVERY 14 DAYS 6 each 1 03/20/2017 Active hydrOXYzine hydrochloride 50 mg oral tablet (2 sources) Antihistamine Start: 07-15-2018 hydrOXYzine (ATARAX) 50 MG tablet Take by mouth as needed . 0 07/15/2018 Active naproxen 500 mg oral tablet (13 sources) Nonsteroidal Anti-inflammatory Drug Start: 11-13-2017 End: 07-12-2019 take 1 tablet by mouth twice daily after mealtime naproxen (NAPROSYN) 500 MG tablet Take 1 (one) tablet (500 mg total) by mouth 2 (two) times a day after meals . 180 tablet 0 07/12/2019 Active Start: 09-21-2015 naproxen (NAPR OSYN) 500 MG tablet TAKE 1 TABLET TWICE A DAY AFTER FOOD 180 tablet 3 09/21/2015 Active NAPROXEN ORAL Ta ke 5 mg by mouth Once or twice a day 0 Active NAPROXEN ORAL Ta ke 5 mg by mouth Once or twice a day Active levothyroxine sodium 0.175 mg oral tablet (6 sources) l-Thyroxine Start: 06-12-2015 take 1 tablet by mouth once daily SYNTHROID 175 mcg tablet Take 175 mcg by mouth daily. 0 06/12/2015 Active Start: 06-12-2015 take 1 tablet by osmany th once daily SYNTHROID 175 mcg tablet Take 175 mcg by mouth daily. 06/12/2015 Active Completed/Discontinued Medications Medication Drug Class(es) Dates Sig (Normalized) Sig (Original) leflunomide 20 mg oral tablet (4 sources) Antirheumatic Agent Start: 12-24-2017 End: 07-20-2018 leflunomide (ARAVA) 20 MG tablet TAKE 1 TABLET DAILY 90 tablet 1 12/24/2017 07/20/2018 Discontinued Start: 06-29-2017 End: 07-23-2017 leflunomide (ARAVA) 20 MG ta blet TAKE 1 TABLET DAILY 90 tablet 1 06/29/2017 07/23/2017 Discontinued Start: 12-29-2016 End: 06-27-2017 leflunomide (ARAVA) 20 MG ta blet TAKE 1 TABLET DAILY 90 tablet 1 12/29/2016 06/27/2017 Discontinued Problems Problem Classification Problem Date Documented Da te Episodic/Chronic Open wounds of extremities (2 sources) Laceration without foreign body of right thumb with damage to nail, initial encounter; Translations: [Laceration without foreign body of right thumb with damage to nail, initial encounter] Onset: 09-24-2024 Episodic Rheumatoid arthritis and related disease (9 sources) Rheumatoid arthritis; 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] Onset: 07-06-2024 01-11-2015 Chronic Thyroid disorders (6 sources) Disorder of thyroid gland; Translations: [Thyroid disease] 01-11-2015 Episodic Results Test Name Value Interpretation Reference Range Facility ED Prov Noteon 09-24-2024 ED Prov Note HPI: 09/24/2024, Time: @NOWNR@ Juan M Vides Corina is a 64 y.o. male presenting to the ED for lacerated right thumb on trailer hitch, beginning today ago. The complaint has been constant, moderate in severity, and worsened by changing position. No alleviating factors. Able to move his thumb and no numbness ROS: Pertinent positives and negatives are stated within HPI, all other systems reviewed and are negative. PAST HISTORY Past Medical History: @[facility] Past Surgical History: has a past surgical history that includes Appendectomy. Social History: reports that he has never smoked. He has never used smokeless tobacco. He reports current alcohol use. He reports that he does not use drugs. Family History: family history includes Diabetes in his father and mother. The patient's home medications have been reviewed. Allergies: Penicillins ---- RESULTS --- All laboratory and radiology results have been personally reviewed by myself LABS: Results for orders placed or performed in visit on 12/22/18 External Lab CRP (Inflammatory) Collection Time: 12/21/18 12:00 AM Result Value Ref Range CRP - Inflammation External Lab Sed Rate Collection Time: 12/21/18 12:00 AM Result Value Ref Range Sed Rate External Lab CBC (With or without Diff) Collection Time: 12/21/18 12:00 AM Result Value Ref Range WBC RBC Hemoglobin Hematocrit Platelets MCV MCH MCHC MPV RDW Neutrophils Lymphocytes Monocytes Eosinophils Basophils Absolute Neutrophils Absolute Lymphocytes Absolute Monocytes Absolute Eosinophils Absolute Basophils RADIOLOGY: Interpreted by Radiologist. XR Finger(s) Right 2+ Views Final Result FINDINGS/ 1. Laceration of the distal aspect of the thumb. Small fragments along the ulnar aspect of the 1st distal phalanx, may represent small fracture fragments. 2. Subcutaneous soft tissue edema about the thumb. 3. Mild degeneration at the 1st metatarsophalangeal joint and the 1st carpometacarpal joint. Workstation ID: [id number] -- NURSING NOTES AND VITALS REVIEWED ---- The nursing notes within the ED encounter and vital signs as below have been reviewed. BP 134/88 (BP Location: Left arm, Patient Position: Sitting) Pulse 63 Temp 98.5 degrees F (36.9 degrees C) (Temporal) Resp 18 Ht 6' Wt 99.8 kg (220 lb) SpO2 96% BMI 29.84 kg/m Oxygen Saturation Interpretation: Normal -----PHYSICAL EXAM Constitutional/General: Alert and oriented x3, well appearing, non toxic in NAD Head: NC/AT Eyes: PERRL, EOMI Mouth: Oropharynx clear, handling secretions, no trismus Neck: Supple, full ROM, no meningeal signs Pulmonary: Lungs clear to auscultation bilaterally, no wheezes, rales, or rhonchi. Not in respiratory distress Cardiovascular: Regular rate and rhythm, no murmurs, gallops, or rubs. 2+ distal pulses Abdomen: Soft, non tender, non distended, Extremities: Moves all extremities x 4. Warm and well perfused, right thumb: Complex jagged laceration approximately 1-1/2 cm and 0.4 cm wide of the right thumb along the nail and nail nearly avulsed, neurovasc intact and full range of motion throughout the thumb, no foreign body and no tendon tear Skin: warm and dry without rash Neurologic: GCS 15, Psych: Normal Affect ------- ED COURSE/MEDICAL DECISION MAKING ----- Medications cephALEXin (KEFLEX) capsule 500 mg (has no administration in time range) Medical Decision Making: Laceration cleaned thoroughly with normal saline solution and Hibiclens, anesthesia with digital block of 4 mL of 1% lidocaine, wound reapproximated with number six 5-0 nylon sutures and nail removed but then replaced as a biological dressing for the thumb, neurovasc intact and no foreign body, also will treat for possible fracture with Keflex Counseling: The emergency provider has spoken with the patient and discussed today's results, in addition to providing specific details for the plan of care and counseling regarding the diagnosis and prognosis. Questions are answered at this time and they are agreeable with the plan. IMPRESSION AND DISPOSITION IMPRESSION 1. Laceration of right thumb without foreign body with damage to nail, initial encounter DISPOSITION Disposition: discharged to home Patient condition is stable Summation Patient Course: Improved ED Medications administered this visit: Medications cephALEXin (KEFLEX) capsule 500 mg (has no administration in time range) New Prescriptions from this visit: New Prescriptions cephAL (more content not included)... [facility] XR FINGER(S) RIGHT 2+ VIEWSo n 09-24-2024 XR FINGER(S) RIGHT 2+ VIEWS EXAMINATION: XR FINGER(S) RIGHT 2+ VIEWS HISTORY: Thumb COMPARISON: None. IMPRESSION: FINDINGS/ 1. Laceration of the distal aspect of the thumb. Small fragments along the ulnar aspect of the 1st distal phalanx, may represent small fracture fragments. 2. Subcutaneous soft tissue edema about the thumb. 3. Mild degeneration at the 1st metatarsophalangeal joint and the 1st carpometacarpal joint. Workstation ID: [id number] Dictated by: DULCE MARIA DE LOS SANTOS on Sat Sep 24, 2024 12:25:29 PM EDT Transcribed by: DULCE MARIA DE LOS SANTOS on Sat Sep 24, 2024 12:25:29 PM EDT Finalized by: DULCE MARIA DE LOS SANTOS on Sat Sep 24, 2024 12:25:29 PM EDT [facility] Comment on above: Order Comment: Injur y/Trauma or Illness?:Injury/Trauma How long have you had these symptoms (acute/chronic)?:Acute Reason for exam?:thumb injury History of cancer?:. Surgeries, chemotherapy, or radiation?:. Type of Exam?:Initial Mechanism of injury?:Thumb on right hand crushing injury and laceration due to part of a trailer landing on it CBC W/Diff, Automatedon 04-2 Absolute Lymph 2.01 X10 3/uL Normal 0.83-4.51 [facility] Comment on above: Performed By: #### L 500.4050, L100.0100 #### [facility] [address] [place], [address] Absolute Neut 3.3 X10 3/uL Normal 2.0-7.7 [facility] Comment on above: Performed By: #### L 500.4050, L100.0100 #### [facility] [address] [place], [address] Basophils/100 WBC (Bld) 0.8 % Normal 0-1 [facility] Comment on above: Performed By: #### L 500.4050, L100.0100 #### [facility] [address] [place], [address] Eosinophils/100 WBC (Bld) 4.2 % Normal 0-5 [facility] Comment on above: Performed By: #### L 500.4050, L100.0100 #### [facility] [address] [place], [address] Erythrocyte distribution width (RBC) [Ratio] 12.9 % Normal 11.6-14.6 [facility] Comment on above: Performed By: #### L 500.4050, L100.0100 #### [facility] [address] [place], [address] Hematocrit (Bld) [Volume fraction] 47.9 % Normal 40-54 [facility] Comment on above: Performed By: #### L 500.4050, L100.0100 #### [facility] [address] [place], [address] Hemoglobin (Bld) [Mass/Vol] 16.3 g/dL Normal 13.0-16.5 [facility] Comment on above: Performed By: #### L 500.4050, L100.0100 #### [facility] [address] [place], [address] IG% 0.200 Normal 0.0-0.9 [facility] Comment on above: Result Comment: IG% - Immature Granulocytes (promyelocytes, myelocytes and metamyelocytes) > 1% indicates that a LEFT SHIFT is Present. Performed By: #### L 500.4050, L100.0100 #### [facility] [address] [place], [address] Lymphocytes/100 WBC (Bld) 32.6 % Normal 19-41 [facility] Comment on above: Performed By: #### L 500.4050, L100.0100 #### [facility] [address] [place], [address] MCH (RBC) [Entitic mass] 30.0 pg Normal 27.0-32.0 [facility] Comment on above: Performed By: #### L 500.4050, L100.0100 #### [facility] [address] [place], [address] MCHC (RBC) [Mass/Vol] 34.0 g/dL Normal 32-36 [facility] Comment on above: Performed By: #### L 500.4050, L100.0100 #### [facility] [address] [place], [address] MCV (RBC) [Entitic vol] 88.2 fL Normal 80-94 [facility] Comment on above: Performed By: #### L 500.4050, L100.0100 #### [facility] [address] [place], [address] Monocytes/100 WBC (Bld) 9.1 % Normal 0-10 [facility] Comment on above: Performed By: #### L 500.4050, L100.0100 #### [facility] [address] [place], [address] Neutrophils/100 WBC (Bld) 53.1 % Normal 47-70 [facility] Comment on above: Performed By: #### L 500.4050, L100.0100 #### [facility] [address] [place], [address] Nucleated RBC (Bld) [#/Vol] 0 10*3/uL Normal 0-5 [facility] Comment on above: Performed By: #### L 500.4050, L100.0100 #### [facility] [address] [place], [address] Platelet mean volume (Bld) [Entitic vol] 9.8 fL Normal 6.2-12.0 [facility] Comment on above: Performed By: #### L 500.4050, L100.0100 #### [facility] [address] [place], [address] Platelets (Bld) [#/Vol] 294 10*3/uL Normal 150-450 [facility] Comment on above: Performed By: #### L 500.4050, L100.0100 #### [facility] [address] [place], [address] RBC (Bld) [#/Vol] 5.43 10*6/uL Normal 4.6-6.2 [facility] Comment on above: Performed By: #### L 500.4050, L100.0100 #### [facility] [address] [place], [address] RDW SD 41.9 fl Normal 35.1-43.9 [facility] Comment on above: Performed By: #### L 500.4050, L100.0100 #### [facility] [address] [place], [address] WBC (Bld) [#/Vol] 6.2 10*3/uL Normal 4.4-11.0 [facility] Comment on above: Performed By: #### L 500.4050, L100.0100 #### [facility] [address] [place], [address] Comprehensive Metabolic Prof [facility] 07-04-2024 Albumin [Mass/Vol] 4.3 g/dL Normal 3.4-4.8 [facility] Comment on above: Order Comment: Order Date: 01/12/24Order Info: 3015-05 - TSHOrder Info: 3023-09 - T4FDJN Perez GETS RESULTS FOR TSH AND FT4 DR. BOB GETSRESULTS FOR CBCD AND CMP Performed By: #### L 500.4050, L100.0100 #### [facility] [address] [place], [address] Albumin/Globulin [Mass ratio] 1.3 {ratio} Normal 0.9-2.4 [facility] Comment on above: Order Comment: Order Date: 01/12/24Order Info: 3015-05 - TSHOrder Info: 3023-09 - T4FDRJN GETS RESULTS FOR TSH AND FT4 DR. BOB GETSRESULTS FOR CBCD AND CMP Performed By: #### L 500.4050, L100.0100 #### [facility] [address] [place], [address] ALK PHOS 75 U/L Normal 40-129 [facility] Comment on above: Order Comment: Order Date: 01/12/24Order Info: 3015-05 - TSHOrder Info: 3023-09 - T4FDRJN GETS RESULTS FOR TSH AND FT4 DR. BOB GETSRESULTS FOR CBCD AND CMP Performed By: #### L 500.4050, L100.0100 #### [facility] [address] [place], [address] ALT [Catalytic activity/Vol] 22 U/L Normal <=46 [facility] Comment on above: Order Comment: Order Date: 01/12/24Order Info: 3015-05 - TSHOrder Info: 3023-09 - T4FDRJN GETS RESULTS FOR TSH AND FT4 DR. BOB GETSRESULTS FOR CBCD AND CMP Performed By: #### L 500.4050, L100.0100 #### [facility] [address] [place], [place], [id number] AST [Catalytic activity/Vol] 22 U/L Normal <=37 [facility] Comment on above: Order Comment: Order Date: 01/12/24Order Info: 3015-05 - TSHOrder Info: 3023-09 - T4FDRJN GETS RESULTS FOR TSH AND FT4 DR. BOB GETSRESULTS FOR CBCD AND CMP Performed By: #### L 500.4050, L100.0100 #### [facility] [address] [place], [address] Bilirubin [Mass/Vol] 0.44 mg/dL Normal 0.00-1.30 [facility] Comment on above: Order Comment: Order Date: 01/12/24Order Info: 3015-05 - TSHOrder Info: 3023-09 - T4FDRJN GETS RESULTS FOR TSH AND FT4 DR. BOB GETSRESULTS FOR CBCD AND CMP Performed By: #### L 500.4050, L100.0100 #### [facility] [address] [place], [place], [id number] (984) BUN/CRE 14.6 RATIO Normal 10-20 [facility] Comment on above: Order Comment: Order Date: 01/12/24Order Info: 3015-05 - TSHOrder Info: 3023-09 - T4FDRJN GETS RESULTS FOR TSH AND FT4 DR. BOB GETSRESULTS FOR CBCD AND CMP Performed By: #### L 500.4050, L100.0100 #### [facility] [address] [place], [address] Calcium [Mass/Vol] 9.3 mg/dL Normal 7.6-11.0 [facility] Comment on above: Order Comment: Order Date: 01/12/24Order Info: 3 - TSHOrder Info: 3023-09 - T4FDRJN GETS RESULTS FOR TSH AND FT4 DR. BOB GETSRESULTS FOR CBCD AND CMP Performed By: #### L 500.4050, L100.0100 #### [facility] [address] [place], [place], [address] Chloride [Moles/Vol] 104 mmol/L Normal 98-108 [facility] Comment on above: Order Comment: Order Date: 01/12/24Order Info: 3 - TSHOrder Info: 7 - T4FDRJN GETS RESULTS FOR TSH AND FT4 DR. BOB GETSRESULTS FOR CBCD AND CMP Performed By: #### L 500.4050, L100.0100 #### [facility] [address] [place], [place], [phone] (120) CO2 [Moles/Vol] 21.0 mmol/L Normal 21.0-32.0 [facility] Comment on above: Order Comment: Order Date: 01/12/24Order Info: 3015-05 - TSHOrder Info: 7 - T4FDRJN GETS RESULTS FOR TSH AND FT4 DR. BOB GETSRESULTS FOR CBCD AND CMP Performed By: #### L 500.4050, L100.0100 #### [facility] [address] [place], [address] Creatinine [Mass/Vol] 1.09 mg/dL Normal 0.70-1.20 [facility] Comment on above: Order Comment: Order Date: 01/12/24Order Info: 3015-05 - TSHOrder Info: 7 - T4FDRJN GETS RESULTS FOR TSH AND FT4 DR. BOB GETSRESULTS FOR CBCD AND CMP Performed By: #### L 500.4050, L100.0100 #### [facility] [address] [place], [address] GAP 12 Normal 5-15 [facility] Comment on above: Order Comment: Order Date: 01/12/24Order Info: 3 - TSHOrder Info: 3027 - T4FDRJN GETS RESULTS FOR TSH AND FT4 DR. BOB GETSRESULTS FOR CBCD AND CMP Performed By: #### L 500.4050, L100.0100 #### [facility] [address] [place], [address] GFR/1.73 sq M.predicted among non-blacks MDRD (S/P/Bld) [Vol rate/Area] 77 mL/min/{1.73_m2} Normal >60 [facility] Comment on above: Order Comment: Order Date: 01/12/24Order Info: 3 - TSHOrder Info: 3023-09 - T4JN TELLEZ GETS RESULTS FOR TSH AND FT4 DR. BOB GETSRESULTS FOR CBCD AND CMP Result Comment: mL/m in/1.73m2 CKD-EPI Creatinine Equation (2020) Performed By: #### L 500.4050, L100.0100 #### [facility] [address] [place], [address] Globulin (S) [Mass/Vol] 3.4 g/dL Normal 2.2-4.2 [facility] Comment on above: Order Comment: Order Date: 01/12/24Order Info: 3 - TSHOrder Info: 3023-09 - T4JN TELLEZ GETS RESULTS FOR TSH AND FT4 DR. BOB GETSRESULTS FOR CBCD AND CMP Performed By: #### L 500.4050, L100.0100 #### [facility] [address] [place], [address] Glucose [Mass/Vol] 106 mg/dL High 70-99 [facility] Comment on above: Order Comment: Order Date: 01/12/24Order Info: 3 - TSHOrder Info: 3023-09 - T4JN TELLEZ GETS RESULTS FOR TSH AND FT4 DR. BOB GETSRESULTS FOR CBCD AND CMP Performed By: #### L 500.4050, L100.0100 #### [facility] [address] [place], [address] Potassium [Moles/Vol] 4.3 mmol/L Normal 3.3-5.1 [facility] Comment on above: Order Comment: Order Date: 01/12/24Order Info: 3015-3 - TSHOrder Info: 3023-09 - T4JN TELLEZ GETS RESULTS FOR TSH AND FT4 DR. BOB GETSRESULTS FOR CBCD AND CMP Performed By: #### L 500.4050, L100.0100 #### [facility] [address] [place], [address] Sodium [Moles/Vol] 137 mmol/L Normal 133-145 [facility] Comment on above: Order Comment: Order Date: 01/12/24Order Info: 3 - TSHOrder Info: 3023-09 - T4JN TELLEZ GETS RESULTS FOR TSH AND FT4 DR. BOB GETSRESULTS FOR CBCD AND CMP Performed By: #### L 500.4050, L100.0100 #### [facility] [address] [place], [address] T PROT 7.6 g/dL Normal 5.9-8.4 [facility] Comment on above: Order Comment: Order Date: 01/12/24Order Info: 3 - TSHOrder Info: 3023-09 - T4JN TELLEZ GETS RESULTS FOR TSH AND FT4 DR. BOB GETSRESULTS FOR CBCD AND CMP Performed By: #### L 500.4050, L100.0100 #### [facility] [address] [place], [address] Urea nitrogen [Mass/Vol] 16 mg/dL Normal 4-19 [facility] Comment on above: Order Comment: Order Date: 01/12/24Order Info: 3 - TSHOrder Info: 3023-09 - T4JN TELLEZ GETS RESULTS FOR TSH AND FT4 DR. BOB GETSRESULTS FOR CBCD AND CMP Performed By: #### L 500.4050, L100.0100 #### [facility] [address] [place], [address] T4 Free Directon 07-04-2024 T4 FREE DIRECT 1.30 ng/dL Normal 0.76-1.46 [facility] Comment on above: Order Comment: Order Date: 01/12/24Order Info: 3 - TSHOrder Info: 3023-09 - T4JN TELLEZ GETS RESULTS FOR TSH AND FT4 DR. BOB GETSRESULTS FOR CBCD AND CMP Performed By: #### L 500.4050, L100.0100 #### [facility] [address] [place], [address] Thyroid Stim Hormone (TSH)on 07-04-2024 TSH 2.430 uIU/mL Normal 0.300-4.200 [facility] Comment on above: Order Comment: Order Date: 01/12/24Order Info: 3 - TSHOrder Info: 3023-09 - T4JN TELLEZ GETS RESULTS FOR TSH AND FT4 DR. BOB GETSRESULTS FOR CBCD AND CMP Performed By: #### L 500.4050, L100.0100 #### [facility] [address] [place], [address] CBC W/Diff, Automatedon 10-3 Absolute Lymph 2.01 X10 3/uL Normal 0.83-4.51 [facility] Comment on above: Order Comment: DR. Rosario RODRIGUEZ GETS CBCD AND CMP ALL Order Date: 11/05/23 Order Info: [id number] - CBC Order Info: [id number] - SED Performed By: #### L 100.0100 #### [facility] [address] [place], [address] Absolute Neut 2.8 X10 3/uL Normal 2.0-7.7 [facility] Comment on above: Order Comment: DR. Rosario RODRIGUEZ GETS CBCD AND CMP ALL Order Date: 11/05/23 Order Info: [id number] - CBC Order Info: [id number] - SED Performed By: #### L 100.0100 #### [facility] [address] [place], [address] Basophils/100 WBC (Bld) 0.7 % Normal 0-1 [facility] Comment on above: Order Comment: DR. Rosario RODRIGUEZ GETS CBCD AND CMP ALL Order Date: 11/05/23 Order Info: [id number] - CBC Order Info: [id number] - SED Performed By: #### L 100.0100 #### [facility] [address] [place], [address] Eosinophils/100 WBC (Bld) 6.0 % High 0-5 [facility] Comment on above: Order Comment: DR. Rosario RODRIGUEZ GETS CBCD AND CMP ALL Order Date: 11/05/23 Order Info: - CBC Order Info: [id number] - SED Performed By: #### L 100.0100 #### [facility] [address] [place], [address] Erythrocyte distribution width (RBC) [Ratio] 12.4 % Normal 11.6-14.6 [facility] Comment on above: Order Comment: DR. Rosario RODRIGUEZ GETS CBCD AND CMP ALL Order Date: 11/05/23 Order Info: [id number] - CBC Order Info: [id number] - SED Performed By: #### L 100.0100 #### [facility] [address] [place], [address] Hematocrit (Bld) [Volume fraction] 47.5 % Normal 40-54 [facility] Comment on above: Order Comment: DR. Rosario RODRIGUEZ GETS CBCD AND CMP ALL Order Date: 11/05/23 Order Info: [id number] - CBC Order Info: - SED Performed By: #### L 100.0100 #### [facility] [address] [place], [address] Hemoglobin (Bld) [Mass/Vol] 16.1 g/dL Normal 13.0-16.5 [facility] Comment on above: Order Comment: DR. Rosario RODRIGUEZ GETS CBCD AND CMP ALL Order Date: 11/05/23 Order Info: [id number] - CBC Order Info: - SED Performed By: #### L 100.0100 #### [facility] [address] [place], [address] IG% 0.200 Normal 0.0-0.9 [facility] Comment on above: Order Comment: DR. Rosario RODRIGUEZ GETS CBCD AND CMP ALL Order Date: 11/05/23 Order Info: [id number] - CBC Order Info: - SED Result Comment: IG% - Immature Granulocytes (promyelocytes, myelocytes and metamyelocytes) > 1% indicates that a LEFT SHIFT is Present. Performed By: #### L 100.0100 #### [facility] [address] [place], [address] Lymphocytes/100 WBC (Bld) 35.5 % Normal 19-41 [facility] Comment on above: Order Comment: DR. Rosario RODRIGUEZ GETS CBCD AND CMP ALL Order Date: 11/05/23 Order Info: [id number] - CBC Order Info: - SED Performed By: #### L 100.0100 #### [facility] [address] [place], [address] MCH (RBC) [Entitic mass] 30.6 pg Normal 27.0-32.0 [facility] Comment on above: Order Comment: DR. Rosario RODRIGUEZ GETS CBCD AND CMP ALL Order Date: 11/05/23 Order Info: [id number] - CBC Order Info: - SED Performed By: #### L 100.0100 #### [facility] [address] [place], [address] MCHC (RBC) [Mass/Vol] 33.9 g/dL Normal 32-36 [facility] Comment on above: Order Comment: DR. Rosario RODRIGUEZ GETS CBCD AND CMP ALL Order Date: 11/05/23 Order Info: [id number] - CBC Order Info: 42586-9 - SED Performed By: #### L 100.0100 #### [facility] [address] [place], [address] MCV (RBC) [Entitic vol] 90.1 fL Normal 80-94 [facility] Comment on above: Order Comment: DR. Rosario RODRIGUEZ GETS CBCD AND CMP ALL Order Date: 11/05/23 Order Info: - CBC Order Info: [id number] - SED Performed By: #### L 100.0100 #### [facility] [address] [place], [address] Monocytes/100 WBC (Bld) 8.7 % Normal 0-10 [facility] Comment on above: Order Comment: DR. Rosario RODRIGUEZ GETS CBCD AND CMP ALL Order Date: 11/05/23 Order Info: [id number] - CBC Order Info: 87665-8 - SED Performed By: #### L 100.0100 #### [facility] [address] [place], [address] Neutrophils/100 WBC (Bld) 48.9 % Normal 47-70 [facility] Comment on above: Order Comment: DR. Rosario RODRIGUEZ GETS CBCD AND CMP ALL Order Date: 11/05/23 Order Info: [id number] - CBC Order Info: 03814-2 - SED Performed By: #### L 100.0100 #### [facility] [address] [place], [address] Nucleated RBC (Bld) [#/Vol] 0 10*3/uL Normal 0-5 [facility] Comment on above: Order Comment: DR. Rosario RODRIGUEZ GETS CBCD AND CMP ALL Order Date: 11/05/23 Order Info: [id number] - CBC Order Info: 23789-9 - SED Performed By: #### L 100.0100 #### [facility] [address] [place], [address] ( Platelet mean volume (Bld) [Entitic vol] 9.9 fL Normal 6.2-12.0 [facility] Comment on above: Order Comment: DR. Rosario RODRIGUEZ GETS CBCD AND CMP ALL Order Date: 11/05/23 Order Info: - CBC Order Info: - SED Performed By: #### L 100.0100 #### [facility] [address] [place], [address] Platelets (Bld) [#/Vol] 277 10*3/uL Normal 150-450 [facility] Comment on above: Order Comment: DR. Rosario RODRIGUEZ GETS CBCD AND CMP ALL Order Date: 11/05/23 Order Info: - CBC Order Info: - SED Performed By: #### L 100.0100 #### [facility] [address] [place], [address] RBC (Bld) [#/Vol] 5.27 10*6/uL Normal 4.6-6.2 [facility] Comment on above: Order Comment: DR. Rosario RODRIGUEZ GETS CBCD AND CMP ALL Order Date: 11/05/23 Order Info: [id number] - CBC Order Info: - SED Performed By: #### L 100.0100 #### [facility] [address] [place], [address] RDW SD 41.0 fl Normal 35.1-43.9 [facility] Comment on above: Order Comment: DR. Rosario RODRIGUEZ GETS CBCD AND CMP ALL Order Date: 11/05/23 Order Info: - CBC Order Info: - SED Performed By: #### L 100.0100 #### [facility] [address] [place], [address] WBC (Bld) [#/Vol] 5.7 10*3/uL Normal 4.4-11.0 [facility] Comment on above: Order Comment: DR. Rosario RODRIGUEZ GETS CBCD AND CMP ALL Order Date: 11/05/23 Order Info: [id number] - CBC Order Info: 70067-5 - SED Performed By: #### L 100.0100 #### [facility] [address] [place], [address] Comprehensive Metabolic Prof iaon 01-07-2024 Albumin [Mass/Vol] 3.8 g/dL Normal 3.2-5.0 [facility] Comment on above: Order Comment: DR. Rosario RODRIGUEZ GETS CBCD AND CMP ALL Order Date: 11/05/23 Order Info: 07 - CMP Order Info: [id number] - LIPID Order Info: 3 - TSH Order Info: 2856-03 - PSA Order Info: 7 - T4F Performed By: #### L 501.9520, L500.4100, L500.4050, L506.1000, L506.0400, L501.9910, L101.9900 #### [facility] [address] [place], [address] Albumin/Globulin [Mass ratio] 1.0 {ratio} Normal 0.9-2.4 [facility] Comment on above: Order Comment: DR. Rosario RODRIGUEZ GETS CBCD AND CMP ALL Order Date: 11/05/23 Order Info: 785-03 - CMP Order Info: [id number] - LIPID Order Info: 3 - TSH Order Info: 28571 - PSA Order Info: 3024-7 - T4F Performed By: #### L 501.9520, L500.4100, L500.4050, L506.1000, L506.0400, L501.9910, L101.9900 #### [facility] [address] [place], [address] ALK P 67 U/L Normal 45-117 [facility] Comment on above: Order Comment: DR. Rosario RODRIGUEZ GETS CBCD AND CMP ALL Order Date: 11/05/23 Order Info: 785-03 - CMP Order Info: - LIPID Order Info: 3015-05 - TSH Order Info: 2856-03 - PSA Order Info: 30247 - T4F Performed By: #### L 501.9520, L500.4100, L500.4050, L506.1000, L506.0400, L501.9910, L101.9900 #### [facility] [address] [place], [address] ALT [Catalytic activity/Vol] 29 U/L Normal 16-61 [facility] Comment on above: Order Comment: DR. Rosario RODRIGUEZ GETS CBCD AND CMP ALL Order Date: 11/05/23 Order Info: 785-03 - CMP Order Info: - LIPID Order Info: 3015-05 - TSH Order Info: 2856-03 - PSA Order Info: 7 - T4F Performed By: #### L 501.9520, L500.4100, L500.4050, L506.1000, L506.0400, L501.9910, L101.9900 #### [facility] [address] [place], [address] AST [Catalytic activity/Vol] 23 U/L Normal 15-37 [facility] Comment on above: Order Comment: DR. Rosario RODRIGUEZ GETS CBCD AND CMP ALL Order Date: 11/05/23 Order Info: 785-03 - CMP Order Info: - LIPID Order Info: 3015-05 - TSH Order Info: 2856-03 - PSA Order Info: 3024-7 - T4F Performed By: #### L 501.9520, L500.4100, L500.4050, L506.1000, L506.0400, L501.9910, L101.9900 #### [facility] [address] [place], [address] Bilirubin [Mass/Vol] 0.60 mg/dL Normal 0.20-1.00 [facility] Comment on above: Order Comment: DR. Rosario RODRIGUEZ GETS CBCD AND CMP ALL Order Date: 11/05/23 Order Info: 785-03 - CMP Order Info: - LIPID Order Info: 3015-05 - TSH Order Info: 2856-03 - PSA Order Info: 3027 - T4F Result Comment: For patients on eltrombopag therapy, use of Dimension [place] TBIL is not recommended. Performed By: #### L 501.9520, L500.4100, L500.4050, L506.1000, L506.0400, L501.9910, L101.9900 #### [facility] [address] [place], [address] BUN/CRE 13.1 RATIO Normal 10-20 [facility] Comment on above: Order Comment: DR. Rosario RODRIGUEZ GETS CBCD AND CMP ALL Order Date: 11/05/23 Order Info: 785-03 - CMP Order Info: - LIPID Order Info: 3015-05 - TSH Order Info: 2856-03 - PSA Order Info: 7 - T4F Performed By: #### L 501.9520, L500.4100, L500.4050, L506.1000, L506.0400, L501.9910, L101.9900 #### [facility] [address] [place], [address] CA,Total 9.1 mg/dL Normal 8.5-10.1 [facility] Comment on above: Order Comment: DR. Rosario RODRIGUEZ GETS CBCD AND CMP ALL Order Date: 11/05/23 Order Info: 785-03 - CMP Order Info: - LIPID Order Info: 3015-05 - TSH Order Info: 2856-03 - PSA Order Info: 30247 - T4F Performed By: #### L 501.9520, L500.4100, L500.4050, L506.1000, L506.0400, L501.9910, L101.9900 #### [facility] [address] [place], [address] Chloride [Moles/Vol] 107 mmol/L Normal 98-107 [facility] Comment on above: Order Comment: DR. Rosario RODRIGUEZ GETS CBCD AND CMP ALL Order Date: 11/05/23 Order Info: 785- - CMP Order Info: 69746-3 - LIPID Order Info: 3 - TSH Order Info: 2856-03 - PSA Order Info: 3027 - T4F Performed By: #### L 501.9520, L500.4100, L500.4050, L506.1000, L506.0400, L501.9910, L101.9900 #### [facility] [address] [place], [address] CO2 [Moles/Vol] 24.0 mmol/L Normal 21.0-32.0 [facility] Comment on above: Order Comment: DR. Rosario RODRIGUEZ GETS CBCD AND CMP ALL Order Date: 11/05/23 Order Info: 785-03 - CMP Order Info: - LIPID Order Info: 3015-05 - TSH Order Info: 2856-03 - PSA Order Info: 7 - T4F Performed By: #### L 501.9520, L500.4100, L500.4050, L506.1000, L506.0400, L501.9910, L101.9900 #### [facility] [address] [place], [address] Creatinine [Mass/Vol] 1.07 mg/dL Normal 0.70-1.30 [facility] Comment on above: Order Comment: DR. Rosario RODRIGUEZ GETS CBCD AND CMP ALL Order Date: 11/05/23 Order Info: 785-03 - CMP Order Info: 61618-4 - LIPID Order Info: 3 - TSH Order Info: 2856-03 - PSA Order Info: 3024-7 - T4F Result Comment: The validity of the calculated GFR GFRAA in patients over 70 years has not been determined. Clinical correlation is essential. Performed By: #### L 501.9520, L500.4100, L500.4050, L506.1000, L506.0400, L501.9910, L101.9900 #### [facility] [address] [place], [place], [id number] (490) EST GFR - AA 90 mL/min Normal >60 [facility] Comment on above: Order Comment: DR. Rosario RODRIGUEZ GETS CBCD AND CMP ALL Order Date: 11/05/23 Order Info: 785-03 - CMP Order Info: - LIPID Order Info: 3015-05 - TSH Order Info: 2856-03 - PSA Order Info: 3023-09 - T4F Result Comment: Afri can [place] GFR Calc Performed By: #### L 501.9520, L500.4100, L500.4050, L506.1000, L506.0400, L501.9910, L101.9900 #### [facility] [address] [place], [place], [id number] (029) GAP 6 Normal 5-15 [facility] Comment on above: Order Comment: DR. Rosario RODRIGUEZ GETS CBCD AND CMP ALL Order Date: 11/05/23 Order Info: 785-03 - CMP Order Info: - LIPID Order Info: 3015-05 - TSH Order Info: 2856-03 - PSA Order Info: 3023-09 - T4F Performed By: #### L 501.9520, L500.4100, L500.4050, L506.1000, L506.0400, L501.9910, L101.9900 #### [facility] [address] [place], [address] GFR/1.73 sq M.predicted among non-blacks MDRD (S/P/Bld) [Vol rate/Area] 75 mL/min/{1.73_m2} Normal >60 [facility] Comment on above: Order Comment: DR. Rosario RODRIGUEZ GETS CBCD AND CMP ALL Order Date: 11/05/23 Order Info: 785-03 - CMP Order Info: - LIPID Order Info: 3015-05 - TSH Order Info: 28509-06 - PSA Order Info: 3024-7 - T4F Result Comment: Non- GFR Calc Performed By: #### L 501.9520, L500.4100, L500.4050, L506.1000, L506.0400, L501.9910, L101.9900 #### [facility] [address] [place], [address] Globulin (S) [Mass/Vol] 3.9 g/dL Normal 2.2-4.2 [facility] Comment on above: Order Comment: DR. Rosario RODRIGUEZ GETS CBCD AND CMP ALL Order Date: 11/05/23 Order Info: 785-03 - CMP Order Info: - LIPID Order Info: 3015-05 - TSH Order Info: 2856-03 - PSA Order Info: 7 - T4F Performed By: #### L 501.9520, L500.4100, L500.4050, L506.1000, L506.0400, L501.9910, L101.9900 #### [facility] [address] [place], [address] Glucose [Mass/Vol] 98 mg/dL Normal 74-106 [facility] Comment on above: Order Comment: DR. Rosario RODRIGUEZ GETS CBCD AND CMP ALL Order Date: 11/05/23 Order Info: 785-03 - CMP Order Info: - LIPID Order Info: 3015-05 - TSH Order Info: 2856-03 - PSA Order Info: 3024-7 - T4F Performed By: #### L 501.9520, L500.4100, L500.4050, L506.1000, L506.0400, L501.9910, L101.9900 #### [facility] [address] [place], [address] Potassium [Moles/Vol] 4.1 mmol/L Normal 3.5-5.1 [facility] Comment on above: Order Comment: DR. Rosario RODRIGUEZ GETS CBCD AND CMP ALL Order Date: 11/05/23 Order Info: 785- - CMP Order Info: 53781-8 - LIPID Order Info: 3 - TSH Order Info: 2856-03 - PSA Order Info: 3024-7 - T4F Performed By: #### L 501.9520, L500.4100, L500.4050, L506.1000, L506.0400, L501.9910, L101.9900 #### [facility] [address] [place], [address] Sodium [Moles/Vol] 137 mmol/L Normal 136-145 [facility] Comment on above: Order Comment: DR. Rosario RODRIGUEZ GETS CBCD AND CMP ALL Order Date: 11/05/23 Order Info: 785-03 - CMP Order Info: - LIPID Order Info: 3015-05 - TSH Order Info: 2856-03 - PSA Order Info: 3024-7 - T4F Performed By: #### L 501.9520, L500.4100, L500.4050, L506.1000, L506.0400, L501.9910, L101.9900 #### [facility] [address] [place], [address] T PROT 7.7 g/dL Normal 6.4-8.2 [facility] Comment on above: Order Comment: DR. Rosario RODRIGUEZ GETS CBCD AND CMP ALL Order Date: 11/05/23 Order Info: 785-03 - CMP Order Info: 73590-1 - LIPID Order Info: 3 - TSH Order Info: 2856-03 - PSA Order Info: 3024-7 - T4F Performed By: #### L 501.9520, L500.4100, L500.4050, L506.1000, L506.0400, L501.9910, L101.9900 #### [facility] [address] [place], [address] Urea nitrogen [Mass/Vol] 14 mg/dL Normal 7-18 [facility] Comment on above: Order Comment: DR. Rosario RODRIGUEZ GETS CBCD AND CMP ALL Order Date: 11/05/23 Order Info: 785-03 - CMP Order Info: - LIPID Order Info: 3015-05 - TSH Order Info: 2856-03 - PSA Order Info: 3023-09 - T4F Performed By: #### L 501.9520, L500.4100, L500.4050, L506.1000, L506.0400, L501.9910, L101.9900 #### [facility] [address] [place], [place], [id number] Erythrocyte Sed Rateon 01-06 SED RATE 9 mm/hr Normal 0-20 [facility] Comment on above: Order Comment: DR. Rosario RODRIGUEZ GETS CBCD AND CMP ALL Order Date: 11/05/23 Order Info: 98914-7 - CBC Order Info: 06237-2 - SED Performed By: #### L 501.9520, L500.4100, L500.4050, L506.1000, L506.0400, L501.9910, L101.9900 #### [facility] [address] [place], [address] Lipid Profileon 01-07-2024 Cholesterol [Mass/Vol] 219 mg/dL High 200 [facility] Comment on above: Order Comment: DR. Rosario RODRIGUEZ GETS CBCD AND CMP ALL Order Date: 11/05/23 Order Info: 785-03 - CMP Order Info: - LIPID Order Info: 3015-05 - TSH Order Info: 2856-03 - PSA Order Info: 3023-09 - T4F Result Comment: <200 mg/dL Desirable 200-240 mg/dL Borderline >240 mg/dL High Risk Performed By: #### L 501.9520, L500.4100, L500.4050, L506.1000, L506.0400, L501.9910, L101.9900 #### [facility] [address] [place], [address] Cholesterol in HDL [Mass/Vol] 47 mg/dL Normal [facility] Comment on above: Order Comment: DR. Rosario RODRIGUEZ GETS CBCD AND CMP ALL Order Date: 11/05/23 Order Info: 785-03 - CMP Order Info: - LIPID Order Info: 3015-05 - TSH Order Info: 2856-03 - PSA Order Info: 3023-09 - T4F Result Comment: The drugs N-Acetylcysteine and Metamizole may falsely depress this assay. Reference Range HDL <40 mg/dL Low HDL Cholesterol HDL >or= 60 mg/dL High HDL Cholesterol Performed By: #### L 501.9520, L500.4100, L500.4050, L506.1000, L506.0400, L501.9910, L101.9900 #### [facility] [address] [place], [address] Cholesterol in LDL [Mass/Vol] 143 mg/dL High 0-130 [facility] Comment on above: Order Comment: DR. Rosario RODRIGUEZ GETS CBCD AND CMP ALL Order Date: 11/05/23 Order Info: 785-03 - CMP Order Info: - LIPID Order Info: 3015-05 - TSH Order Info: 2856-03 - PSA Order Info: 3023-09 T4F Performed By: #### L 501.9520, L500.4100, L500.4050, L506.1000, L506.0400, L501.9910, L101.9900 #### [facility] [address] [place], [address] Cholesterol in VLDL [Mass/Vol] 29 mg/dL Normal 5-40 [facility] Comment on above: Order Comment: DR. Rosario RODRIGUEZ GETS CBCD AND CMP ALL Order Date: 11/05/23 Order Info: 785-03 - CMP Order Info: - LIPID Order Info: 3015-05 - TSH Order Info: 2856-03 - PSA Order Info: 3023-09 T4F Performed By: #### L 501.9520, L500.4100, L500.4050, L506.1000, L506.0400, L501.9910, L101.9900 #### [facility] [address] [place], [place], [id number] Triglyceride [Mass/Vol] 147 mg/dL Normal [facility] Comment on above: Order Comment: DR. Rosario RODRIGUEZ GETS CBCD AND CMP ALL Order Date: 11/05/23 Order Info: 785-03 - CMP Order Info: - LIPID Order Info: 3015-05 - TSH Order Info: 2856-03 - PSA Order Info: 3023-09 T4F Result Comment: The drugs N-Acetylcysteine and Metamizole may falsely depress this assay. Serum Triglycerides Reference Interval Normal <150 mg/dL Borderline high 150 - 199 mg/dL High 200 - 499 mg/dL Very High > or = 500 mg/dL Performed By: #### L 501.9520, L500.4100, L500.4050, L506.1000, L506.0400, L501.9910, L101.9900 #### [facility] [address] [place], [place], [id number] PSA,Total - Annual Screenon 01-07-2024 PSA,TOT SCREEN 2.83 ng/mL Normal 0.00-4.00 [facility] Comment on above: Order Comment: DR. Rosario RODRIGUEZ GETS CBCD AND CMP ALL Order Date: 11/05/23 Order Info: 785-03 - CMP Order Info: - LIPID Order Info: 3015-05 - TSH Order Info: 2856-03 - PSA Order Info: 3023-09 - T4F Result Comment: This test was performed using the TPSA assay method for the Dimension chemistry system. Values obtained with different assay methods cannot be used interchangably. When changing PSA assays in the course of monitoring a patient, additional sequential testing should be carried out to confirm baseline values. Performed By: #### L 501.9520, L500.4100, L500.4050, L506.1000, L506.0400, L501.9910, L101.9900 #### [facility] [address] [place], [address] T4 Free Directon 01-07-2024 T4 FREE DIRECT 1.16 ng/dL Normal 0.76-1.46 [facility] Comment on above: Order Comment: DR. Rosario RODRIGUEZ GETS CBCD AND CMP ALL Order Date: 11/05/23 Order Info: 785-03 - CMP Order Info: 02141-9 - LIPID Order Info: 3 - TSH Order Info: 2856-03 - PSA Order Info: 3023-09 - T4F Performed By: #### L 501.9520, L500.4100, L500.4050, L506.1000, L506.0400, L501.9910, L101.9900 #### [facility] [address] [place], [address] Thyroid Stim Hormone (TSH)on 01-07-2024 TSH 4.010 uIU/mL High 0.358-3.740 [facility] Comment on above: Order Comment: DR. Rosario RODRIGUEZ GETS CBCD AND CMP ALL Order Date: 11/05/23 Order Info: 785-03 - CMP Order Info: - LIPID Order Info: 30163 - TSH Order Info: 2856-03 - PSA Order Info: 7 - T4F Performed By: #### L 501.9520, L500.4100, L500.4050, L506.1000, L506.0400, L501.9910, L101.9900 #### [facility] [address] [place], [address] Vitamin D,25 Hydroxyon 01-06 Vitamin D 25-OH 49.7 ng/mL Normal [facility] Comment on above: Order Comment: DR. Rosario RODRIGUEZ GETS CBCD AND CMP ALL Order Date: 11/05/23 Order Info: 92796-5 - VITD25 Result Comment: Linda min D 25(OH) Status Range Deficiency <20 ng/mL (50nmol/L) Insufficiency 20 - 30 ng/mL (50 - 75 nmol/L) Sufficiency 30 - 100 ng/mL (75 - 250 nmol/L) Toxicity >100 ng/mL (>250 nmol/L) Performed By: #### L 501.9520, L500.4100, L500.4050, L506.1000, L506.0400, L501.9910, L101.9900 #### [facility] [address] [place], [address] CBC W/Diff, Automatedon 05-0 Absolute Lymph 2.30 X10 3/uL Normal 0.83-4.51 [facility] Comment on above: Performed By: #### L 500.4050, L100.0100 #### [facility] [address] [place], [address] Absolute Neut 3.0 X10 3/uL Normal 2.0-7.7 [facility] Comment on above: Performed By: #### L 500.4050, L100.0100 #### [facility] [address] [place], [address] Basophils/100 WBC (Bld) 1.3 % High 0-1 [facility] Comment on above: Performed By: #### L 500.4050, L100.0100 #### [facility] [address] [place], [address] Eosinophils/100 WBC (Bld) 4.8 % Normal 0-5 [facility] Comment on above: Performed By: #### L 500.4050, L100.0100 #### [facility] [address] [place], [address] Erythrocyte distribution width (RBC) [Ratio] 12.7 % Normal 11.6-14.6 [facility] Comment on above: Performed By: #### L 500.4050, L100.0100 #### [facility] [address] [place], [address] Hematocrit (Bld) [Volume fraction] 48.7 % Normal 40-54 [facility] Comment on above: Performed By: #### L 500.4050, L100.0100 #### [facility] [address] [place], [address] Hemoglobin (Bld) [Mass/Vol] 16.3 g/dL Normal 13.0-16.5 [facility] Comment on above: Performed By: #### L 500.4050, L100.0100 #### [facility] [address] [place], [address] IG% 0.200 Normal 0.0-0.9 [facility] Comment on above: Result Comment: IG% - Immature Granulocytes (promyelocytes, myelocytes and metamyelocytes) > 1% indicates that a LEFT SHIFT is Present. Performed By: #### L 500.4050, L100.0100 #### [facility] [address] [place], [address] Lymphocytes/100 WBC (Bld) 36.9 % Normal 19-41 [facility] Comment on above: Performed By: #### L 500.4050, L100.0100 #### [facility] [address] [place], [address] MCH (RBC) [Entitic mass] 30.1 pg Normal 27.0-32.0 [facility] Comment on above: Performed By: #### L 500.4050, L100.0100 #### [facility] [address] [place], [address] MCHC (RBC) [Mass/Vol] 33.5 g/dL Normal 32-36 [facility] Comment on above: Performed By: #### L 500.4050, L100.0100 #### [facility] [address] [place], [address] MCV (RBC) [Entitic vol] 90.0 fL Normal 80-94 [facility] Comment on above: Performed By: #### L 500.4050, L100.0100 #### [facility] [address] [place], [address] Monocytes/100 WBC (Bld) 9.0 % Normal 0-10 [facility] Comment on above: Performed By: #### L 500.4050, L100.0100 #### [facility] [address] [place], [address] Neutrophils/100 WBC (Bld) 47.8 % Normal 47-70 [facility] Comment on above: Performed By: #### L 500.4050, L100.0100 #### [facility] [address] [place], [address] Nucleated RBC (Bld) [#/Vol] 0 10*3/uL Normal 0-5 [facility] Comment on above: Performed By: #### L 500.4050, L100.0100 #### [facility] [address] [place], [address] Platelet mean volume (Bld) [Entitic vol] 9.5 fL Normal 6.2-12.0 [facility] Comment on above: Performed By: #### L 500.4050, L100.0100 #### [facility] [address] [place], [address] Platelets (Bld) [#/Vol] 264 10*3/uL Normal 150-450 [facility] Comment on above: Performed By: #### L 500.4050, L100.0100 #### [facility] [address] [place], [address] RBC (Bld) [#/Vol] 5.41 10*6/uL Normal 4.6-6.2 [facility] Comment on above: Performed By: #### L 500.4050, L100.0100 #### [facility] [address] [place], [address] RDW SD 41.5 fl Normal 35.1-43.9 [facility] Comment on above: Performed By: #### L 500.4050, L100.0100 #### [facility] [address] [place], [address] WBC (Bld) [#/Vol] 6.2 10*3/uL Normal 4.4-11.0 [facility] Comment on above: Performed By: #### L 500.4050, L100.0100 #### [facility] [address] [place], [address] Comprehensive Metabolic Prof [facility] 07-16-2023 Albumin [Mass/Vol] 4.0 g/dL Normal 3.2-5.0 [facility] Comment on above: Performed By: #### L 500.4050, L100.0100 #### [facility] [address] [place], [address] Albumin/Globulin [Mass ratio] 1.1 {ratio} Normal 0.9-2.4 [facility] Comment on above: Performed By: #### L 500.4050, L100.0100 #### [facility] [address] [place], [place], [address] ALK P 63 U/L Normal 45-117 [facility] Comment on above: Performed By: #### L 500.4050, L100.0100 #### [facility] [address] [place], [address] ALT [Catalytic activity/Vol] 28 U/L Normal 16-61 [facility] Comment on above: Performed By: #### L [id number], L100.0100 #### [facility] [address] [place], [address] AST [Catalytic activity/Vol] 22 U/L Normal 15-37 [facility] Comment on above: Performed By: #### L [id number], L100.0100 #### [facility] [address] [place], [address] Bilirubin [Mass/Vol] 0.40 mg/dL Normal 0.20-1.00 [facility] Comment on above: Result Comment: For patients on eltrombopag therapy, use of Dimension [place] TBIL is not recommended. Performed By: #### L [id number], L100.0100 #### [facility] [address] [place], [address] BUN/CRE 13.3 RATIO Normal 10-20 [facility] Comment on above: Performed By: #### L [id number], L100.0100 #### [facility] [address] [place], [address] CA,Total 9.2 mg/dL Normal 8.5-10.1 [facility] Comment on above: Performed By: #### L [id number], L100.0100 #### [facility] [address] [place], [address] Chloride [Moles/Vol] 108 mmol/L High 98-107 [facility] Comment on above: Performed By: #### L [id number], [id number] #### [facility] [address] [place], [address] CO2 [Moles/Vol] 25.0 mmol/L Normal 21.0-32.0 [facility] Comment on above: Performed By: #### L [id number], L100.0100 #### [facility] [address] [place], [address] Creatinine [Mass/Vol] 1.13 mg/dL Normal 0.70-1.30 [facility] Comment on above: Result Comment: The validity of the calculated GFR GFRAA in patients over 70 years has not been determined. Clinical correlation is essential. Performed By: #### L [id number], L100.0100 #### [facility] [address] [place], [address] EST GFR - AA 85 mL/min Normal >60 [facility] Comment on above: Result Comment: Afri can [place] GFR Calc Performed By: #### L [id number], L100.0100 #### [facility] [address] [place], [address] GAP 5 Normal 5-15 [facility] Comment on above: Performed By: #### L [id number], L100.0100 #### [facility] [address] [place], [address] GFR/1.73 sq M.predicted among non-blacks MDRD (S/P/Bld) [Vol rate/Area] 70 mL/min/{1.73_m2} Normal >60 [facility] Comment on above: Result Comment: Non- GFR Calc Performed By: #### L [id number], L100.0100 #### [facility] [address] [place], [address] Globulin (S) [Mass/Vol] 3.7 g/dL Normal 2.2-4.2 [facility] Comment on above: Performed By: #### L [id number], L100.0100 #### [facility] [address] [place], [address] Glucose [Mass/Vol] 105 mg/dL Normal 74-106 [facility] Comment on above: Result Comment: Fast ing Glucose result from 100 to 125 mg/dL suggests IMPAIRED HOMEOSTASIS per A.D.A. criteria. Performed By: #### L [id number], L100.0100 #### [facility] [address] [place], [address] Potassium [Moles/Vol] 4.1 mmol/L Normal 3.5-5.1 [facility] Comment on above: Performed By: #### L [id number], L100.0100 #### [facility] [address] [place], [address] Sodium [Moles/Vol] 138 mmol/L Normal 136-145 [facility] Comment on above: Performed By: #### L [id number], L100.0100 #### [facility] [address] [place], [address] T PROT 7.7 g/dL Normal 6.4-8.2 [facility] Comment on above: Performed By: #### L [id number], L100.0100 #### [facility] [address] [place], [address] Urea nitrogen [Mass/Vol] 15 mg/dL Normal 7-18 [facility] Comment on above: Performed By: #### L [id number], L100.0100 #### [facility] [address] [place], [address] Absolute lymphocyte countOrd ered By: Royce Ragsdale on 01-27-2023 Lymphocytes Auto (Unsp spec) [#/Vol] 2.51 10*3/uL 0.83-4.51 [facility] Basophil percentageOrdered B y: Royce Ragsdale on 01-27-2023 Basophils/100 WBC (Bld) 0.6 % 0-1 [facility] Bilirubin [Mass/Vol] 0.30 mg/dL 0.20-1.00 [facility] Comment on above: For patients on eltr ombopag therapy, use of Dimension [place] TBIL is not recommended. Chloride [Moles/Vol] 108 mmol/L 98-107 [facility] Eosinophils/100 WBC (Bld) 3.5 % 0-5 [facility] Glucose [Mass/Vol] 80 mg/dL 74-106 [facility] Neutrophils (Bld) [#/Vol] 4.4 10*3/uL 2.0-7.7 [facility] Neutrophils/100 WBC (Bld) 55.5 % 47-70 [facility] Potassium [Moles/Vol] 4.2 mmol/L 3.5-5.1 [facility] Protein [Mass/Vol] 7.5 g/dL 6.4-8.2 [facility] Sodium [Moles/Vol] 140 mmol/L 136-145 [facility] WBC (Bld) [#/Vol] 8.0 10*3/uL 4.4-11.0 [facility] Blood erythrocytes count (nu mber/volume)Ordered By: Royce Ragsdale on 01-27-2023 RBC (Bld) [#/Vol] 5.20 10*6/uL 4.6-6.2 [facility] Blood hemoglobin measurement (mass/volume)Ordered By: Royce Ragsdale on 01-27-2023 Hemoglobin (Bld) [Mass/Vol] 15.5 g/dL 13.0-16.5 [facility] Blood lymphocytes/100 leukoc ytesOrdered By: Royce Ragsdale on 01-27-2023 Lymphocytes/100 WBC (Bld) 31.3 % 19-41 [facility] Blood monocytes/100 leukocyt esOrdered By: Royce Ragsdale on 01-27-2023 Monocytes/100 WBC (Bld) 9.0 % 0-10 [facility] Blood platelet mean volumeOr dered By: Royce Ragsdale on 01-27-2023 Platelet mean volume (Bld) [Entitic vol] 9.6 fL 6.2-12.0 [facility] Determination of erythrocyte mean corpuscular volume (MCV)Ordered By: Royce Ragsdale on 01-27-2023 MCV (RBC) [Entitic vol] 91.2 fL 80-94 [facility] Hematocrit Auto (Bld) [Volum e fraction]Ordered By: Royce Ragsdale on 01-27-2023 Hematocrit (Bld) [Volume fraction] 47.4 % 40-54 [facility] - Chemistry and C hemistry - challengeOrdered By: Royce Ragsdale on 01-27-2023 ALP [Catalytic activity/Vol] 63 U/L 45-117 [facility] ALT [Catalytic activity/Vol] 31 U/L 16-61 [facility] CO2 [Moles/Vol] 27.0 mmol/L 21.0-32.0 [facility] Free T4 [Mass/Vol] 1.16 ng/dL 0.76-1.46 [facility] Globulin (S) [Mass/Vol] 3.6 g/dL 2.2-4.2 [facility] Urea nitrogen/Creatinine [Mass ratio] 13.7 mg/mg 10-20 [facility] - Hematology and Cell countsOrdered By: Royce Ragsdale on 01-27-2023 Erythrocyte distribution width (RBC) [Entitic vol] 42.4 fL 35.1-43.9 [facility] Erythrocyte distribution width (RBC) [Ratio] 12.6 % 11.6-14.6 [facility] Immature granulocytes/100 WBC (Bld) 0.100 % 0.0-0.9 [facility] Comment on above: IG% - Immature Granu locytes (promyelocytes, myelocytes and metamyelocytes) > 1% indicates that a LEFT SHIFT is Present. MCH (RBC) [Entitic mass] 29.8 pg 27.0-32.0 [facility] Nucleated RBC/100 WBC (Bld) [Ratio] 0 % 0-5 [facility] MCHC Auto (RBC) [Mass/Vol]Or dered By: Royce Ragsdale on 01-27-2023 MCHC (RBC) [Mass/Vol] 32.7 g/dL 32-36 [facility] No Panel InformationOrdered By: Royce Ragsdale on 01-27-2023 Estimated GFR (MDRD) Amer 82 mL/min >60 [facility] Comment on above: GFR Calc Estimated GFR (MDRD) Non-Af Amer 68 mL/min >60 [facility] Comment on above: Non- GFR Calc Thyroid Stimulating Hormone (TSH) 0.66 uIU/mL 0.358-3.74 [facility] Platelets bldOrdered By: Thong mullins Jn on 01-27-2023 Platelets (Bld) [#/Vol] 285 10*3/uL 150-450 [facility] Serum or plasma albumin april urement (mass/volume)Ordered By: Royce Ragsdale on 01-27-2023 Albumin [Mass/Vol] 3.9 g/dL 3.2-5.0 [facility] Serum or plasma albumin/glob ulin mass ratioOrdered By: Royce Ragsdale on 01-27-2023 Albumin/Globulin [Mass ratio] 1.1 {ratio} 0.9-2.4 [facility] Serum or plasma calcium april urement (mass/volume)Ordered By: Royce Ragsdale on 01-27-2023 Calcium [Mass/Vol] 8.9 mg/dL 8.5-10.1 [facility] Serum or plasma creatinine m easurement (mass/volume)Ordered By: Royce Ragsdale on 01-27-2023 Creatinine [Mass/Vol] 1.17 mg/dL 0.70-1.30 [facility] Comment on above: The validity of the calculated GFR & GFRAA in patients over 70 years has not been determined. Clinical correlation is essential. Serum or plasma urea nitroge n measurement (mass/volume)Ordered By: Royce Ragsdale on 01-27-2023 Urea nitrogen [Mass/Vol] 16 mg/dL 7-18 [facility] Thin prep Papanicolaou smear with manual screeningOrdered By: Royce Ragsdale on 01-27-2023 Thin prep Papanicolaou smear with manual screening 18 U/L 15-37 [facility] Thin prep Papanicolaou smear with manual screening 5 5-15 [facility] Basophil percentageOrdered B y: Royce Ragsdale on 11-17-2022 Cholesterol [Mass/Vol] 187 mg/dL <200 [facility] Comment on above: <200 mg/dL Desirable 200-240 mg/dL Borderline >240 mg/dL High Risk Testosterone [Mass/Vol] 639.86 ng/dL [facility] Comment on above: CENTRAL 90% REFERENC E RANGES MALE AGE <50 197.44 - 669.58 ng/dL MALE AGE > or = 50 187.72 - 684.19 ng/dL FEMALE AGE <50 8.38 - 35.01 ng/dL FEMALE AGE > or = 50 <7.00 - 35.92 ng/dL Effective as of 10/02/20 Triglyceride [Mass/Vol] 144 mg/dL <199 [facility] Comment on above: The drugs N-Acetylcy steine and Metamizole may falsely depress this assay.Serum Triglycerides Reference Interval Normal <150 mg/dL Borderline high 150 - 199 mg/dL High 200 - 499 mg/dL Very High > or = 500 mg/dL Erythrocyte sedimentation ra teOrdered By: Royce Ragsdale on 11-17-2022 ESR (Bld) [Velocity] 10 mm/h 0-20 [facility] Iron measurement (mass/mass) Ordered By: Royce Ragsdale on 11-17-2022 Iron (Unsp spec) [Mass/Mass] 136 ug/dL 65-175 [facility] - Chemistry and C hemistry - challengeOrdered By: Royce Ragsdale on 11-17-2022 Cobalamin (Vitamin B12) [Mass/Vol] 258 pg/mL 211-911 [facility] Free T4 [Mass/Vol] 1.61 ng/dL 0.76-1.46 [facility] No Panel InformationOrdered By: Royce Ragsdale on 11-17-2022 Prostate Specific Antigen Screen 2.47 ng/mL 0.00-4.00 [facility] Comment on above: This test was perfor med using the TPSA assay method [facility] the[facility] system. Values obtained with differentassay methods cannot be used interchangably.When changing PSA assays in the course of monitoring apatient, additional sequential testing should be carriedout to confirm baseline values. Thyroid Stimulating Hormone (TSH) 0.04 uIU/mL 0.358-3.74 [facility] Vitamin D 25-Hydroxy 71.4 ng/mL [facility] Comment on above: Vitamin D 25(OH) Sta tus Range Deficiency <20 ng/mL (50nmol/L) Insufficiency 20 - 30 ng/mL (50 - 75 nmol/L) Sufficiency 30 - 100 ng/mL (75 - 250 nmol/L) Toxicity >100 ng/mL (>250 nmol/L) Serum or plasma cholesterol in HDL measurement (mass/volume)Ordered By: Royce Ragsdale on 11-17-2022 Cholesterol in HDL [Mass/Vol] 44 mg/dL >40 [facility] Comment on above: The drugs N-Acetylcy steine and Metamizole may falsely depress this assay. Reference Range HDL <40 mg/dL Low HDL Cholesterol HDL >or= 60 mg/dL High HDL Cholesterol Serum or plasma cholesterol in VLDL measurement (mass/volume)Ordered By: Royce Ragsdale on 11-17-2022 Cholesterol in VLDL [Mass/Vol] 29 mg/dL 5-40 [facility] Serum or plasma low density lipoprotein (LDL) cholesterol measurement (mass/volume)Ordered By: Royce Ragsdale on 11-17-2022 Cholesterol in LDL [Mass/Vol] 114 mg/dL 0-130 [facility] Absolute lymphocyte countOrd ered By: Dr. Bob on 08-08-2022 Lymphocytes Auto (Unsp spec) [#/Vol] 2.10 10*3/uL 0.83-4.51 [facility] Basophil percentageOrdered B y: Dr. Bob on 08-08-2022 Basophils/100 WBC (Bld) 0.8 % 0-1 [facility] Bilirubin [Mass/Vol] 0.50 mg/dL 0.20-1.00 [facility] Comment on above: For patients on eltr ombopag therapy, use of Dimension [place] TBIL is not recommended. Chloride [Moles/Vol] 109 mmol/L 98-107 [facility] Eosinophils/100 WBC (Bld) 2.6 % 0-5 [facility] Glucose [Mass/Vol] 102 mg/dL 74-106 [facility] Comment on above: Fasting Glucose resu lt from 100 to 125 mg/dL suggests IMPAIRED HOMEOSTASIS per A.D.A. criteria. Neutrophils (Bld) [#/Vol] 4.5 10*3/uL 2.0-7.7 [facility] Neutrophils/100 WBC (Bld) 60.2 % 47-70 [facility] Potassium [Moles/Vol] 4.1 mmol/L 3.5-5.1 [facility] Protein [Mass/Vol] 7.7 g/dL 6.4-8.2 [facility] Sodium [Moles/Vol] 142 mmol/L 136-145 [facility] WBC (Bld) [#/Vol] 7.4 10*3/uL 4.4-11.0 [facility] Blood erythrocytes count (nu mber/volume)Ordered By: Dr. Bob on 08-08-2022 RBC (Bld) [#/Vol] 5.18 10*6/uL 4.6-6.2 [facility] Blood hemoglobin measurement (mass/volume)Ordered By: Dr. Bob on 08-08-2022 Hemoglobin (Bld) [Mass/Vol] 15.5 g/dL 13.0-16.5 [facility] Blood lymphocytes/100 leukoc ytesOrdered By: Dr. Bob on 08-08-2022 Lymphocytes/100 WBC (Bld) 28.2 % 19-41 [facility] Blood monocytes/100 leukocyt esOrdered By: Dr. Bob on 08-08-2022 Monocytes/100 WBC (Bld) 8.1 % 0-10 [facility] Blood platelet mean volumeOr dered By: Dr. Bob on 08-08-2022 Platelet mean volume (Bld) [Entitic vol] 9.7 fL 6.2-12.0 [facility] Determination of erythrocyte mean corpuscular volume (MCV)Ordered By: Dr. Bob on 08-08-2022 MCV (RBC) [Entitic vol] 89.2 fL 80-94 [facility] Hematocrit Auto (Bld) [Volum e fraction]Ordered By: Dr. Bob on 08-08-2022 Hematocrit (Bld) [Volume fraction] 46.2 % 40-54 [facility] - Chemistry and C hemistry - challengeOrdered By: Dr. Bob on 08-08-2022 ALP [Catalytic activity/Vol] 65 U/L 45-117 [facility] ALT [Catalytic activity/Vol] 33 U/L 16-61 [facility] CO2 [Moles/Vol] 27.0 mmol/L 21.0-32.0 [facility] Globulin (S) [Mass/Vol] 3.7 g/dL 2.2-4.2 [facility] Urea nitrogen/Creatinine [Mass ratio] 15.3 mg/mg 10-20 [facility] - Hematology and Cell countsOrdered By: Dr. Bob on 08-08-2022 Erythrocyte distribution width (RBC) [Entitic vol] 40.8 fL 35.1-43.9 [facility] Erythrocyte distribution width (RBC) [Ratio] 12.4 % 11.6-14.6 [facility] Immature granulocytes/100 WBC (Bld) 0.100 % 0.0-0.9 [facility] Comment on above: IG% - Immature Granu locytes (promyelocytes, myelocytes and metamyelocytes) > 1% indicates that a LEFT SHIFT is Present. MCH (RBC) [Entitic mass] 29.9 pg 27.0-32.0 [facility] Nucleated RBC/100 WBC (Bld) [Ratio] 0 % 0-5 [facility] MCHC Auto (RBC) [Mass/Vol]Or dered By: Dr. Bob on 08-08-2022 MCHC (RBC) [Mass/Vol] 33.5 g/dL 32-36 [facility] No Panel InformationOrdered By: Dr. Bob on 08-08-2022 Estimated GFR (MDRD) Amer 77 mL/min >60 [facility] Comment on above: GFR Calc Estimated GFR (MDRD) Non-Af Amer 63 mL/min >60 [facility] Comment on above: Non- GFR Calc Platelets bldOrdered By: Dr. Bob on 08-08-2022 Platelets (Bld) [#/Vol] 302 10*3/uL 150-450 [facility] Serum or plasma albumin april urement (mass/volume)Ordered By: Dr. Bob on 08-08-2022 Albumin [Mass/Vol] 4.0 g/dL 3.2-5.0 [facility] Serum or plasma albumin/glob ulin mass ratioOrdered By: Dr. Bob on 08-08-2022 Albumin/Globulin [Mass ratio] 1.1 {ratio} 0.9-2.4 [facility] Serum or plasma calcium april urement (mass/volume)Ordered By: Dr. Bob on 08-08-2022 Calcium [Mass/Vol] 9.1 mg/dL 8.5-10.1 [facility] Serum or plasma creatinine m easurement (mass/volume)Ordered By: Dr. Bob on 08-08-2022 Creatinine [Mass/Vol] 1.24 mg/dL 0.70-1.30 [facility] Comment on above: The validity of the calculated GFR & GFRAA in patients over 70 years has not been determined. Clinical correlation is essential. Serum or plasma urea nitroge n measurement (mass/volume)Ordered By: Dr. Bob on 08-08-2022 Urea nitrogen [Mass/Vol] 19 mg/dL 7-18 [facility] Thin prep Papanicolaou smear with manual screeningOrdered By: Dr. Bob on 08-08-2022 Thin prep Papanicolaou smear with manual screening 23 U/L 15-37 [facility] Thin prep Papanicolaou smear with manual screening 6 5-15 [facility] Absolute lymphocyte counton 02-14-2022 Lymphocytes Auto (Unsp spec) [#/Vol] 2.19 10*3/uL 0.83-4.51 [facility] Work Phone: Basophil percentageon 2021 Basophils/100 WBC (Bld) 0.9 % 0-1 [facility] Work Phone: Bilirubin [Mass/Vol] 0.50 mg/dL 0.20-1.00 [facility] Work Phone: Comment on above: For patients on eltr ombopag therapy, use of Dimension [place] TBIL is not recommended. Chloride [Moles/Vol] 105 mmol/L 98-107 [facility] Work Phone: Eosinophils/100 WBC (Bld) 4.5 % 0-5 [facility] Work Phone: Glucose [Mass/Vol] 100 mg/dL 74-106 [facility] Work Phone: Comment on above: Fasting Glucose resu lt from 100 to 125 mg/dL suggests IMPAIRED HOMEOSTASIS per A.D.A. criteria. Neutrophils (Bld) [#/Vol] 3.5 10*3/uL 2.0-7.7 [facility] Work Phone: Neutrophils/100 WBC (Bld) 52.5 % 47-70 [facility] Work Phone: Potassium [Moles/Vol] 4.3 mmol/L 3.5-5.1 [facility]: Protein [Mass/Vol] 7.6 g/dL 6.4-8.2 [facility] Work Phone: Sodium [Moles/Vol] 138 mmol/L 136-145 [facility] Work Phone: WBC (Bld) [#/Vol] 6.7 10*3/uL 4.4-11.0 [facility] Work Phone: Blood erythrocytes count (nu mber/volume)on 02-14-2022 RBC (Bld) [#/Vol] 5.27 10*6/uL 4.6-6.2 [facility] Work Phone: Blood hemoglobin measurement (mass/volume)on 02-14-2022 Hemoglobin (Bld) [Mass/Vol] 16.1 g/dL 13.0-16.5 [facility] Work Phone: Blood lymphocytes/100 leukoc yteson 02-14-2022 Lymphocytes/100 WBC (Bld) 32.7 % 19-41 [facility] Work Phone: Blood monocytes/100 leukocyt eson 02-14-2022 Monocytes/100 WBC (Bld) 9.1 % 0-10 [facility] Work Phone: Blood platelet mean volumeon 02-14-2022 Platelet mean volume (Bld) [Entitic vol] 9.6 fL 6.2-12.0 [facility] Work Phone: Determination of erythrocyte mean corpuscular volume (MCV)on 02-14-2022 MCV (RBC) [Entitic vol] 89.9 fL 80-94 [facility] Work Phone: [phone] Hematocrit Auto (Bld) [Volum e fraction]on 02-14-2022 Hematocrit (Bld) [Volume fraction] 47.4 % 40-54 [facility] Work Phone: [phone] Laboratory - Chemistry and C hemistry - challengeon 02-14-2022 ALP [Catalytic activity/Vol] 64 U/L 45-117 [facility] Work Phone: [phone] ALT [Catalytic activity/Vol] 36 U/L 16-61 [facility] Work Phone: [phone] CO2 [Moles/Vol] 25.0 mmol/L 21.0-32.0 [facility] Work Phone: [phone] Globulin (S) [Mass/Vol] 3.3 g/dL 2.2-4.2 [facility] Work Phone: [phone] Urea nitrogen/Creatinine [Mass ratio] 15.2 mg/mg 10-20 [facility] Work Phone: [phone] Laboratory - Hematology and Cell countson 02-14-2022 Erythrocyte distribution width (RBC) [Entitic vol] 40.7 fL 35.1-43.9 [facility] Work Phone: [phone] Erythrocyte distribution width (RBC) [Ratio] 12.3 % 11.6-14.6 [facility] Work Phone: [phone] Immature granulocytes/100 WBC (Bld) 0.300 % 0.0-0.9 [facility] Work Phone: [phone] Comment on above: IG% - Immature Granu locytes (promyelocytes, myelocytes and metamyelocytes) > 1% indicates that a LEFT SHIFT is Present. MCH (RBC) [Entitic mass] 30.6 pg 27.0-32.0 [facility] Work Phone: [phone] Nucleated RBC/100 WBC (Bld) [Ratio] 0 % 0-5 [facility] Work Phone: [phone] MCHC Auto (RBC) [Mass/Vol]on 02-14-2022 MCHC (RBC) [Mass/Vol] 34.0 g/dL 32-36 [facility] Work Phone: No Panel Informationon 02-14 Estimated GFR (MDRD) Amer 100 mL/min >60 [facility] Work Phone: Comment on above: GFR Calc Estimated GFR (MDRD) Non-Af Amer 83 mL/min >60 [facility] Work Phone: Comment on above: Non- GFR Calc Platelets bldon 02-14-2022 Platelets (Bld) [#/Vol] 295 10*3/uL 150-450 [facility] Work Phone: Serum or plasma albumin april urement (mass/volume)on 02-14-2022 Albumin [Mass/Vol] 4.3 g/dL 3.2-5.0 [facility] Work Phone: Serum or plasma albumin/glob ulin mass ratioon 02-14-2022 Albumin/Globulin [Mass ratio] 1.3 {ratio} 0.9-2.4 [facility] Work Phone: Serum or plasma calcium april urement (mass/volume)on 02-14-2022 Calcium [Mass/Vol] 9.4 mg/dL 8.5-10.1 [facility] Work Phone: Serum or plasma creatinine m easurement (mass/volume)on 02-14-2022 Creatinine [Mass/Vol] 0.98 mg/dL 0.70-1.30 [facility] Work Phone: Comment on above: The validity of the calculated GFR & GFRAA in patients over 70 years has not been determined. Clinical correlation is essential. Serum or plasma urea nitroge n measurement (mass/volume)on 02-14-2022 Urea nitrogen [Mass/Vol] 15 mg/dL 7-18 [facility] Work Phone: Thin prep Papanicolaou smear with manual screeningon 02-14-2022 Thin prep Papanicolaou smear with manual screening 23 U/L 15-37 [facility] Work Phone: Thin prep Papanicolaou smear with manual screening 8 5-15 [facility] Work Phone: [phone] Laboratory - Chemistry and C hemistry - challengeon 10-08-2021 Free T4 [Mass/Vol] 1.31 ng/dL 0.76-1.46 [facility] Work Phone: No Panel Informationon 10-08 Thyroid Stimulating Hormone (TSH) 0.95 uIU/mL 0.358-3.74 [facility] Work Phone: Absolute lymphocyte counton 08-07-2021 Lymphocytes Auto (Unsp spec) [#/Vol] 2.44 10*3/uL 0.83-4.51 [facility] Work Phone: Basophil percentageon 2021 Basophils/100 WBC (Bld) 0.9 % 0-1 [facility] Work Phone: [phone] Bilirubin [Mass/Vol] 0.50 mg/dL 0.20-1.00 [facility] Work Phone: Comment on above: For patients on eltr ombopag therapy, use of Dimension [place] TBIL is not recommended. Chloride [Moles/Vol] 105 mmol/L 98-107 [facility] Work Phone: Cholesterol [Mass/Vol] 200 mg/dL <200 [facility] Work Phone: Comment on above: <200 mg/dL Desirable 200-240 mg/dL Borderline >240 mg/dL High Risk Eosinophils/100 WBC (Bld) 2.9 % 0-5 [facility] Work Phone: Glucose [Mass/Vol] 88 mg/dL 74-106 [facility] Work Phone: Neutrophils (Bld) [#/Vol] 3.6 10*3/uL 2.0-7.7 [facility] Work Phone: Neutrophils/100 WBC (Bld) 52.6 % 47-70 [facility] Work Phone: [phone] Potassium [Moles/Vol] 3.7 mmol/L 3.5-5.1 [facility] Work Phone: Protein [Mass/Vol] 7.4 g/dL 6.4-8.2 [facility] Work Phone: Sodium [Moles/Vol] 138 mmol/L 136-145 [facility] Work Phone: Testosterone [Mass/Vol] 354.84 ng/dL [facility] Work Phone: Comment on above: CENTRAL 90% REFERENC E RANGES MALE AGE <50 197.44 - 669.58 ng/dL MALE AGE > or = 50 187.72 - 684.19 ng/dL FEMALE AGE <50 8.38 - 35.01 ng/dL FEMALE AGE > or = 50 <7.00 - 35.92 ng/dL Effective as of 10/02/20 Triglyceride [Mass/Vol] 137 mg/dL <199 [facility] Work Phone: Comment on above: The drugs N-Acetylcy steine and Metamizole may falsely depress this assay.Serum Triglycerides Reference Interval Normal <150 mg/dL Borderline high 150 - 199 mg/dL High 200 - 499 mg/dL Very High > or = 500 mg/dL WBC (Bld) [#/Vol] 6.9 10*3/uL 4.4-11.0 [facility] Work Phone: [phone] Blood erythrocytes count (nu mber/volume)on 08-07-2021 RBC (Bld) [#/Vol] 4.92 10*6/uL 4.6-6.2 [facility] Work Phone: [phone] Blood hemoglobin measurement (mass/volume)on 08-07-2021 Hemoglobin (Bld) [Mass/Vol] 15.0 g/dL 13.0-16.5 [facility] Work Phone: [phone] Blood lymphocytes/100 leukoc yteson 08-07-2021 Lymphocytes/100 WBC (Bld) 35.4 % 19-41 [facility] Work Phone: [phone] Blood monocytes/100 leukocyt eson 08-07-2021 Monocytes/100 WBC (Bld) 8.1 % 0-10 [facility] Work Phone: [phone] Blood platelet mean volumeon 08-07-2021 Platelet mean volume (Bld) [Entitic vol] 9.2 fL 6.2-12.0 [facility] Work Phone: [phone] Determination of erythrocyte mean corpuscular volume (MCV)on 08-07-2021 MCV (RBC) [Entitic vol] 89.8 fL 80-94 [facility] Work Phone: [phone] Hematocrit Auto (Bld) [Volum e fraction]on 08-07-2021 Hematocrit (Bld) [Volume fraction] 44.2 % 40-54 [facility] Work Phone: [phone] Laboratory - Chemistry and C hemistry - challengeon 08-07-2021 ALP [Catalytic activity/Vol] 56 U/L 45-117 [facility] Work Phone: [phone] ALT [Catalytic activity/Vol] 33 U/L 16-61 [facility] Work Phone: [phone] CO2 [Moles/Vol] 26.0 mmol/L 21.0-32.0 [facility] Work Phone: [phone] Globulin (S) [Mass/Vol] 3.5 g/dL 2.2-4.2 [facility] Work Phone: [phone] Urea nitrogen/Creatinine [Mass ratio] 16.2 mg/mg 10-20 [facility] Work Phone: [phone] Laboratory - Hematology and Cell countson 08-07-2021 Erythrocyte distribution width (RBC) [Entitic vol] 41.7 fL 35.1-43.9 [facility] Work Phone: [phone] Erythrocyte distribution width (RBC) [Ratio] 12.7 % 11.6-14.6 [facility] Work Phone: [phone] Immature granulocytes/100 WBC (Bld) 0.100 % 0.0-0.9 [facility] Work Phone: [phone] Comment on above: IG% - Immature Granu locytes (promyelocytes, myelocytes and metamyelocytes) > 1% indicates that a LEFT SHIFT is Present. MCH (RBC) [Entitic mass] 30.5 pg 27.0-32.0 [facility] Work Phone: [phone] Nucleated RBC/100 WBC (Bld) [Ratio] 0 % 0-5 [facility] Work Phone: [phone] MCHC Auto (RBC) [Mass/Vol]on 08-07-2021 MCHC (RBC) [Mass/Vol] 33.9 g/dL 32-36 [facility] Work Phone: [phone] Panel Informationon 08-07 Estimated GFR (MDRD) Amer 82 mL/min >60 [facility] Work Phone: [phone] Comment on above: GFR Calc Estimated GFR (MDRD) Non-Af Amer 68 mL/min >60 [facility] Work Phone: [phone] Comment on above: Non- GFR Calc Prostate Specific Antigen Screen 1.80 ng/mL 0.00-4.00 [facility] Work Phone: [phone] Comment on above: This test was perfor med using the TPSA assay method for [employer] chemistry system. Values obtained with differentassay methods cannot be used interchangably.When changing PSA assays in the course of monitoring apatient, additional sequential testing should be carriedout to confirm baseline values. Thyroid Stimulating Hormone (TSH) 13.60 uIU/mL 0.358-3.74 [facility] Work Phone: [phone] Vitamin D 25-Hydroxy 55.4 ng/mL [facility] Work Phone: [phone] Comment on above: Vitamin D 25(OH) Sta tus Range Deficiency <20 ng/mL (50nmol/L) Insufficiency 20 - 30 ng/mL (50 - 75 nmol/L) Sufficiency 30 - 100 ng/mL (75 - 250 nmol/L) Toxicity >100 ng/mL (>250 nmol/L) Platelets bldon 08-07-2021 Platelets (Bld) [#/Vol] 255 10*3/uL 150-450 [facility] Work Phone: [phone] Serum or plasma albumin april urement (mass/volume)on 08-07-2021 Albumin [Mass/Vol] 3.9 g/dL 3.2-5.0 [facility] Work Phone: Serum or plasma albumin/glob ulin mass ratioon 08-07-2021 Albumin/Globulin [Mass ratio] 1.1 {ratio} 0.9-2.4 [facility] Work Phone: Serum or plasma calcium april urement (mass/volume)on 08-07-2021 Calcium [Mass/Vol] 8.6 mg/dL 8.5-10.1 [facility] Work Phone: Serum or plasma cholesterol in HDL measurement (mass/volume)on 08-07-2021 Cholesterol in HDL [Mass/Vol] 43 mg/dL >40 [facility] Work Phone: Comment on above: The drugs N-Acetylcy steine and Metamizole may falsely depress this assay. Reference Range HDL <40 mg/dL Low HDL Cholesterol HDL >or= 60 mg/dL High HDL Cholesterol Serum or plasma cholesterol in VLDL measurement (mass/volume)on 08-07-2021 Cholesterol in VLDL [Mass/Vol] 27 mg/dL 5-40 [facility] Work Phone: Serum or plasma creatinine m easurement (mass/volume)on 08-07-2021 Creatinine [Mass/Vol] 1.17 mg/dL 0.70-1.30 [facility] Work Phone: Comment on above: The validity of the calculated GFR & GFRAA in patients over 70 years has not been determined. Clinical correlation is essential. Serum or plasma low density lipoprotein (LDL) cholesterol measurement (mass/volume)on 08-07-2021 Cholesterol in LDL [Mass/Vol] 130 mg/dL 0-130 [facility] Work Phone: Serum or plasma urea nitroge n measurement (mass/volume)on 08-07-2021 Urea nitrogen [Mass/Vol] 19 mg/dL 7-18 [facility] Work Phone: Thin prep Papanicolaou smear with manual screeningon 08-07-2021 Thin prep Papanicolaou smear with manual screening 24 U/L 15-37 [facility] Work Phone: Thin prep Papanicolaou smear with manual screening 7 5-15 [facility] Work Phone: Vital Signs Date Time Vital Sign Value Performing Clinician Ren méndez 07-12-2019 15:52-0400 BMI (Body Mass Index) 29.16 kg/m2 [facility] 07-12-2019 15:52-0400 Body weight 97.52 kg [facility] 07-12-2019 15:52-0400 BP Diastolic 91 mm[Hg] [facility] 07-12-2019 15:52-0400 BP Systolic 141 mm[Hg] [facility] 07-12-2019 15:52-0400 Pulse (Heart Rate) 77 /min [facility] 07-20-2018 16:01-0400 BMI (Body Mass Index) 29.7 kg/m2 [facility] 07-20-2018 16:01-0400 BP Diastolic 79 mm[Hg] [facility] 07-20-2018 16:01-0400 BP Systolic 125 mm[Hg] [facility] 07-20-2018 16:01-0400 Pulse (Heart Rate) 81 /min [facility] 07-20-2018 16:01-0400 Weight 99.34 kg [facility] 07-23-2017 15:48-0400 BMI (Body Mass Index) 29.21 kg/m2 [facility] 07-23-2017 15:48-0400 BP Diastolic 83 mm[Hg] [facility] 07-23-2017 15:48-0400 BP Systolic 134 mm[Hg] [facility] 07-23-2017 15:48-0400 Pulse (Heart Rate) 67 /min [facility] 07-23-2017 15:48-0400 Weight 97.7 kg [facility] Encounters Encounter Date Encounter Type Care Provider Facility Start: 09-24-2024 End: 09-24-2024 Emergency department patient visit LENA LUQUE [facility] Start: 07-04-2024 End: 07-04-2024 ambulatory Saturnino Ragsdale Facility:[facility] Start: 01-07-2024 End: 01-07-2024 ambulatory [facility] Facility:[facility] Start: 07-16-2023 End: 07-16-2023 ambulatory [facility] Facility:[facility] Start: 01-27-2023 End: 01-27-2023 ambulatory [facility] Work Phone: Start: 01-27-2023 End: 01-27-2023 Patient encounter procedure [facility] Work Phone: Start: 11-17-2022 End: 11-17-2022 ambulatory [facility] Work Phone: Start: 11-17-2022 End: 11-17-2022 Patient encounter procedure [facility] Work Phone: Start: 08-08-2022 End: 08-08-2022 ambulatory [facility] Work Phone: Start: 08-08-2022 End: 08-08-2022 Patient encounter procedure [facility] Start: 02-14-2022 End: 02-14-2022 ambulatory [facility] Work Phone: Start: 02-14-2022 End: 02-14-2022 Patient encounter procedure [facility] Start: 10-08-2021 End: 10-08-2021 Patient encounter procedure [facility] Start: 08-07-2021 End: 08-07-2021 Patient encounter procedure [facility] Start: 07-12-2019 End: 07-12-2019 Patient encounter procedure BRANDI MODI XOCHITLTHERESAADOLFO [facility] Start: 07-12-2019 End: 07-12-2019 Office outpatient visit 15 minutes Brandi Crane Work Phone: [facility] Comment on above: Rheumatoid arthritis involving multiple sites with positive rheumatoid factor (HCC) (Primary Dx) Start: 04-18-2019 Patient encounter procedure BRANDI MODI PEARL [facility] Start: 12-22-2018 Patient encounter procedure BRANDI MODI PEARL [facility] Start: 07-20-2018 End: 07-20-2018 Office outpatient visit 15 minutes Brandi Crane Work Phone: [facility] Comment on above: Rheumatoid arthritis involving multiple sites, unspecified rheumatoid factor presence (HCC) (Primary Dx) Start: 03-25-2018 End: 03-25-2018 Documentation procedure Russell Parikh [facility] Start: 07-24-2017 Ambulatory Russell Parikh [facility] Start: 07-23-2017 End: 07-23-2017 Office/outpatient visit, est, level 3 Brandi Crane Work Phone: [facility] Start: 06-26-2017 Ambulatory [facility] Plan of Treatment Date Care Activity Detail Author Start: 11-08-2019 Influenza vaccinatio n given Sequential Influenza Vaccine (Season Ended) [facility] Start: 07-12-2019 End: 07-12-2019 Office Visit 07/12/2019 Office Visit Orthopedic Surgery Brandi Crane MD [address] [place] [address] [phone] [facility] Start: 11-07-2018 Influenza vaccinatio n given SEQUENTIAL INFLUENZA VACCINE (Season Ended) [facility] Start: 07-20-2018 End: 07-20-2018 Ambulatory 07/20/2018 Office Visit Orthopedic Surgery Brandi Crane MD [address] [place] [address] [phone] [facility] Start: 11-07-2017 Influenza vaccination SEQUENTI AL INFLUENZA VACCINE (Season Ended) [facility] Start: 11-07-2017 Influenza vaccinatio n given SEQUENTIAL INFLUENZA VACCINE (#1) [facility] Start: 07-23-2017 End: 07-23-2017 Ambulatory 07/23/2017 Office Visit Orthopedic Surgery Brandi Crane MD [address] [place] [address] [phone] [facility] Start: 11-07-2016 Influenza vaccination TASHAENTI AL INFLUENZA VACCINE (#1) [facility] Start: 2012 Administration of he rpes zoster vaccine Zoster Vaccines (1 of 2) [facility] Start: 1965 History and physical examination, annual for health maintenance Wellness Visit [facility] Start: 1962 Hepatitis C antibody , confirmatory test HEPATITIS C SCREENING [facility] Start: 1962 Prostate specific antigen measurement PSA Level [facility] Start: 1962 Protein mass conc [facility] Start: 1962 Screening for malign ant neoplasm of colon Colorectal Cancer Screening: Colonoscopy [facility] Start: 1962 HEPATITIS C SCREENING HEPATITIS C SC REENING [facility] Start: 1962 Screening colonoscopy COLONOSCOPY [facility] Start: 1962 End: 1962 Tetanus vaccination [facility] End: 07-21-2019 Complete blood count with white cell differential, manual CBC and Differential Routine Rheumatoid arthritis involving multiple sites, unspecified rheumatoid factor presence (HCC) 1 Occurrences starting 07/20/2018 until 07/21/2019 [facility] Comment on above: 1 Occurrences starti ng 07/20/2018 until 07/21/2019 End: 07-21-2019 CRP mass conc CRP, Inflammation Routine Rheumatoid arthritis involving multiple sites, unspecified rheumatoid factor presence (HCC) 1 Occurrences starting 07/20/2018 until 07/21/2019 [facility] Comment on above: 1 Occurrences starti ng 07/20/2018 until 07/21/2019 End: 07-21-2019 ESR Velocity (Bld) Sedimentation Rate Routine Rheumatoid arthritis involving multiple sites, unspecified rheumatoid factor presence (HCC) 1 Occurrences starting 07/20/2018 until 07/21/2019 [facility] Comment on above: 1 Occurrences starti ng 07/20/2018 until 07/21/2019 Payers Date Payer Category Payer Self-pay [id number] 2023 Unknown [id number] 2014 Private Health Insurance FARZANA [employer] CHOICE FUND-ANY CHOICE FUND xxxxxxxxxxx 2014-Present xxxxxxxxxxx [id number] 2014 Private Health Insurance [id number] 1960 Unknown [id number] 1962 Unknown [id number] 1962 Unknown [id number] 1962 Unknown [id number] Unknown [id number] Unknown [id number] Unknown [id number] Social History Date Type Detail Facility Start: 07-23-2017 End: 07-12-2019 Tobacco smoking status NHIS Never smoker [facility] Sex Assigned At Not on file [facility] Start: 01-11-2015 Alcohol Comment 2 beers each day [facility] Start: 07-12-2019 Alcohol intake Current drinke r of alcohol (finding) [facility] Start: 1960 Sex Assigned At Male [facility] Evaluation note Note Date & Type Note Facility Evaluation note No assessment information availa [facility] Work Phone: Assessments Diagnosis Seropositive rheumatoid arth ritis (HCC) - Primary Diagnosis Rheumatoid arthritis involving multiple sites, unspecified rheumatoid factor presence (HCC)- Primary Diagnosis Rheumatoid arthritis involving multiple sites with positive rheumatoid factor (HCC) History of Present Illness * Russell Parikh LPN - 03/25/2018 10:59 AM EST Pt's Brent needed a new PA due to a pharmacy change. SEE ATTACHED DOCUMENT. in this encounter* Brandi Crane MD - 07/20/2018 4:38 PM EDT [facility]. Name: Juan M Mahogany Corina Date:07/20/18 [id number] :1960 Allergies: Penicillins Medications: Current Outpatient Medications: HUMIRA 40 mg/0.8 mL syringe, Inject 0.8 mL (40 mg total) under the skin every 14 (fourteen) days .,Disp: 6 each, Rfl: 3 hydrOXYzine (ATARAX) 50 MG tablet, Take by mouth as needed ., Disp: , Rfl: naproxen (NAPROSYN) 500 MG tablet, Take 1 (one) tablet (500 mg total) by mouth 2 (two) times a day after meals., Disp: 180 tablet, Rfl: 3 SYNTHROID 175 mcg tablet, Take 175 mcg by mouth daily., Disp: , Rfl: NAPROXEN ORAL, Take 5 mg by mouth Once or twice a day, Disp: , Rfl: Chief Complaint: Patient here for rheumatoid arthritis evaluation Interim History: The patient reports he feels he is doing well. He has no morning stiffness. He is not impacted by weather changes much if at all. He notes that when he works too hard he will have swelling of his feet and hands so he has to be careful about that but otherwise he is without symptoms. He has had no infections since his last visit. He only takes naproxen perhaps 2 or 3 times a week. He denies havingany problems injecting himself the Humira. He denies having any injection site reactions Interim ROS: Eyes:_Denies new ocular events; has OS medial rectus palsy___ Derm:_Denies new dermatologic disease____ ENT:__Denies new ear nose and throat events___ Cardio:_Denies new cardiac___ Pulm:__Denies new pulmonary problems___ G.I:__Denies new intestinal issues___ Renal:_Denies new renal disorders____ Hem/Onc:_Denies new hematologic or oncologic diagnoses___ Interim Social History: No change Exams: There is have good range of motion with no tenderness or swelling. The MCPs and PIPs are nontender and without synovitis or deformity. The patient make a tight fist bilaterally. Interim Lab Review: Not applicable Impression: RA, clinically quiescent. Plan: 1. Reviewed situation with the patient. We will continue the patient's Humira as is. 2. We will obtain acute phase reactants and a blood count. 3. Return in 1 year or sooner as needed. 4. More than 50% of the 15-minute office time today was spent in counseling. Please note: Portions of this chart may have been created with [employer] voice recognition software. Occasional wrong-word or sound-like substitutions may have occurred due to inherent limitations of the voice recognition software. Please read the chart carefully and recognize, using context, where the substitutions have occurred. Brandi Crane MD documented in this encounter* Brandi Crane MD - 07/12/2019 4:28 PM EDT [facility]. Name: Juan M Adkins Date:07/12/19 [id number] :1960 Allergies: Penicillins Medications: Current Outpatient Medications: Humira 40 mg/0.8 mL syringe, INJECT 40MG SUBCUTANEOUSLY EVERY 2 WEEKS, Disp: 2 each, Rfl: 5 naproxen (NAPROSYN) 500 MG tablet, Take 1 (one) tablet (500 mg total) by mouth 2 (two) times a day after meals ., Disp: 180 tablet, Rfl: 0 SYNTHROID 175 mcg tablet, Take 175 mcg by mouth daily., Disp: , Rfl: hydrOXYzine (ATARAX) 50 MG tablet, Take by mouth as needed ., Disp: , Rfl: NAPROXEN ORAL, Take 5 mg by mouth Once or twice a day, Disp: , Rfl: Chief Complaint: Patient here for rheumatoid arthritis evaluation Interim History: The patient reports he is doing very well with respect to his arthritis. He has had no flareups. Heis not having difficulty with morning stiffness. He notes that occasionally he will overuse his hands and then will swell up but he takes Naprosyn for a day or 2 which relieves the problem. He has not had any problems with the weather. 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 He has had no major infections since his last visit. Interim ROS: Eyes:_No new disturbances. 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 Interim Lab Review: December 21, 2018 lab work from outside reveals the following. The renal function tests are normal. The liver function tests are normal. A C-reactive protein was less than 2.9. A blood count was unremarkable. Reviewed lab test results with the patient. Impression: RA, clinically appears under control. Plan: 1. Reviewed situation with the patient. 2. I suggested that he continue his current medication program for his rheumatoid. A refill for hisnaproxen was sent to his pharmacy. 3. I discussed with him my upcoming senior care on July 28. He should contact his PCP for either management of his RA or referral to another data reviewer. 4. More than 50% of the 15-minute office time today was spent counseling. The [employer] voice recognition system was used to create this record. Typographical and other errors may be present. The reader is advised to recognize these and interpret them correctly. Brandi Crane MD documented in this encounter Advance Directives No Advanced Directives Records FoundDocuments on File Type Date Recorded Patient Classification Inspector Expl anation Advance Directives and Living Will Summary Purpose Family History No Family History Records FoundNo Family History Records FoundNo Family History Records Found Chief Complaint and Reason for Visit Chief Complaint E-ORDER ALSO Chief Complaint PAIN- COPY PCP Chief Complaint PAIN- COPY PCP EORDER Chief Complaint EORDER 2 DRS/ 2 ORDERS Additional Source Comments (unrecognized sect ion and content) No Status Records FoundNo Status Records FoundNo Status Records Found INFORMATION SOURCE (unrecogn ized section and content) DATE CREATED AUTHOR 07/23/2019 [facility] DATE CREATED AUTHOR AUTHOR'S ORGANIZ ATION 07/11/2024 [facility] DATE CREATED AUTHOR AUTHOR'S ORGANIZ ATION 09/30/2024 [facility] Goals (unrecognized section and content) Goals may be documented in a n alternate sectionGoals may be documented in an alternate sectionGoals may be documented in an alternate sectionGoals may be documented in an alternate sectionGoals may be documented in an alternate sectionGoals may be documented in an alternate section Care Teams (unrecognized sec tion and content) Team Status: Active Member Role Status Dates Dr. Royce Ragsdale MD Family Provider Active Dr. Royce Ragsdale MD Primary Care Provider Activ e Team Status: Inactive Member Role Status Dates Dr. Royce Ragsdale MD Primary Care Provider Activ e Dr. aFith Bob MD Attending Provider, Referring Provider Active Team Status: Inactive Member Role Status Dates Dr. Royce Ragsdale MD Primary Care Provider, Attending Provider, Referring Provider Active Team Status: Inactive Member Role Status Dates Dr. Royce Ragsdale MD Primary Care Provider, Attending Provider, Referring Provider Active Dr. Faith Bob MD Other Provider Active FOR RECORDS PERTAINING TO PATIENTS WHO ARE OR HAVE BEEN ENROLLED IN A CHEMICAL DEPENDENCY/SUBSTANCEABUSE PROGRAM, SOME INFORMATION MAY BE OMITTED. This clinical summary was aggregated from multiple sources. Caution should be exercised in using it in the provision of clinical care. This summary normalizes information from multiple sources, and as a consequence, information in this document may materially change the coding, format and clinical context of patient data. In addition, data may be omitted in some cases. CLINICAL DECISIONS SHOULD BE BASED ON THE PRIMARY CLINICAL RECORDS. [employer] [facility]. provides no warranty or guarantee of the accuracy or completeness of information in this document.
--- OUTSIDE RECORDS SUMMARY | 2024-12-22 14:11 | XMS RPT_ITS | CCD ---
Author Organization [facility] Informat ion Partnership [facility] Care Team Providers Care Finisher Card Tender Name Role Phone Saturnino Ragsdale Unavailable [phone] BRANDI CRANE LY Attending Unavailab SATURNINO Glass Primary Care Unavail able STADNADOLFO, BRANDI LY Attending Unavailab SATURNINO Glass Primary Care Unavail able STADNICK, BRANDI LY Attending Unavailab le REFERRING, SELF Referring Unavailable SATURNINO RAGSDALE Primary Care Unavail able [facility] Unavailable Vellanamador, Faith Attending Unavailable Vellanki, Faith Referring Unavailable Jn, Teodoroopher Consulting Unavailable Vellanamador, Faith Attending Unavailable Vellanki, Faith Referring Unavailable Jn, [facility] Unavailable Saturnino Ragsdale Attending Unavailable Jn, Christopher Referring Unavailable Vellanki, Faith Consulting Unavailable Jn, [facility] Unavailable LENA LUQUE Attending Unavailable SATURNINO RAGSDALE MARCUS Primary Care Unavail able Allergies Allergy Classification Reported Allergen(s) Allergy Type Date of Onset Reaction(s) Facility (8 sources) Penicillins; Translations: [Unknown] Propensity to adverse reactions to drug [facility] Medications Current Medications Medication Drug Class(es) Dates [...] are negative. PAST HISTORY Past Medical History: @[facility]@ Past Surgical History: has a past surgical [...] New Prescriptions cephAL (more content not included)... [facility] XR FINGER(S) RIGHT 2+ VIEWSo n 09-24-2024 [...] Sat Sep 24, 2024 12:25:29 PM EDT [facility] Comment on above: Order Comment: Injur y/Trauma or Illness?:Injury/Trauma How long have you had these symptoms (acute/chronic)?:Acute Reason for exam?:thumb injury History of cancer?:. Surgeries, chemotherapy, or radiation?:. Type of Exam?:Initial Mechanism of injury?:Thumb on right hand crushing injury and laceration due to part of a trailer landing on it CBC W/Diff, Automatedon 04-2 Absolute Lymph 2.01 X10 3/uL Normal 0.83-4.51 [facility] Comment on above: Performed By: #### L 500.4050, L100.0100 #### [facility] [address] [place], [address] Absolute Neut 3.3 X10 3/uL Normal 2.0-7.7 [facility] Comment on above: Performed By: #### L 500.4050, L100.0100 #### [facility] [address] [place], [address] Basophils/100 WBC (Bld) 0.8 % Normal 0-1 [facility] Comment on above: Performed By: #### L 500.4050, L100.0100 #### [facility] [address] [place], [address] Eosinophils/100 WBC (Bld) 4.2 % Normal 0-5 [facility] Comment on above: Performed By: #### L 500.4050, L100.0100 #### [facility] [address] [place], [address] Erythrocyte distribution width (RBC) [Ratio] 12.9 % Normal 11.6-14.6 [facility] Comment on above: Performed By: #### L [id number], L100.0100 #### [facility] [address] [place], [address] Hematocrit (Bld) [Volume fraction] 47.9 % Normal 40-54 [facility] Comment on above: Performed By: #### L 500.4050, L100.0100 #### [facility] [address] [place], [address] Hemoglobin (Bld) [Mass/Vol] 16.3 g/dL Normal 13.0-16.5 [facility] Comment on above: Performed By: #### L 500.4050, L100.0100 #### [facility] [address] [place], [address] IG% 0.200 Normal 0.0-0.9 [facility] Comment on above: Result Comment: IG% - Immature Granulocytes (promyelocytes, myelocytes and metamyelocytes) > 1% indicates that a LEFT SHIFT is Present. Performed By: #### L 500.4050, L100.0100 #### [facility] [address] [place], [address] Lymphocytes/100 WBC (Bld) 32.6 % Normal 19-41 [facility] Comment on above: Performed By: #### L [id number], L100.0100 #### [facility] [address] [place], [address] MCH (RBC) [Entitic mass] 30.0 pg Normal 27.0-32.0 [facility] Comment on above: Performed By: #### L [id number], [id number] #### [facility] [address] [place], [address] MCHC (RBC) [Mass/Vol] 34.0 g/dL Normal 32-36 [facility] Comment on above: Performed By: #### L [id number], [id number] #### [facility] [address] [place], [address] MCV (RBC) [Entitic vol] 88.2 fL Normal 80-94 [facility] Comment on above: Performed By: #### L [id number], [id number] #### [facility] [address] [place], [address] Monocytes/100 WBC (Bld) 9.1 % Normal 0-10 [facility] Comment on above: Performed By: #### L 500.4050, L100.0100 #### [facility] [address] [place], [address] Neutrophils/100 WBC (Bld) 53.1 % Normal 47-70 [facility] Comment on above: Performed By: #### L [id number], L100.0100 #### [facility] [address] [place], [address] Nucleated RBC (Bld) [#/Vol] 0 10*3/uL Normal 0-5 [facility] Comment on above: Performed By: #### L [id number], L100.0100 #### [facility] [address] [place], [address] Platelet mean volume (Bld) [Entitic vol] 9.8 fL Normal 6.2-12.0 [facility] Comment on above: Performed By: #### L 500.4050, L100.0100 #### [facility] [address] [place], [address] Platelets (Bld) [#/Vol] 294 10*3/uL Normal 150-450 [facility] Comment on above: Performed By: #### L [id number], [id number] #### [facility] [address] [place], [address] RBC (Bld) [#/Vol] 5.43 10*6/uL Normal 4.6-6.2 [facility] Comment on above: Performed By: #### L [id number], L100.0100 #### [facility] [address] [place], [address] RDW SD 41.9 fl Normal 35.1-43.9 [facility] Comment on above: Performed By: #### L [id number], L100.0100 #### [facility] [address] [place], [address] WBC (Bld) [#/Vol] 6.2 10*3/uL Normal 4.4-11.0 [facility] Comment on above: Performed By: #### L 500.4050, L100.0100 #### [facility] [address] [place], [address] [facility]24 Albumin [Mass/Vol] 4.3 g/dL Normal 3.4-4.8 [facility] Comment on above: Order Comment: Order Date: 01/12/24Order Info: 3015-05 - TSHOrder Info: 3023-09 - T4FDJN Perez GETS RESULTS FOR TSH AND FT4 DR. BOB GETSRESULTS FOR CBCD AND CMP Performed By: #### L 500.4050, L100.0100 #### [facility] [address] [place], [address] Albumin/Globulin [Mass ratio] 1.3 {ratio} Normal 0.9-2.4 [facility] Comment on above: Order Comment: Order Date: 01/12/24Order Info: 3015-05 - TSHOrder Info: 3023-09 - T4FDRJN GETS RESULTS FOR TSH AND FT4 DR. BOB GETSRESULTS FOR CBCD AND CMP Performed By: #### L [id number], L100.0100 #### [facility] [address] [place], [address] ALK PHOS 75 U/L Normal 40-129 [facility] Comment on above: Order Comment: Order Date: 01/12/24Order Info: 3015-05 - TSHOrder Info: 3023-09 - T4FDRJN GETS RESULTS FOR TSH AND FT4 DR. BOB GETSRESULTS FOR CBCD AND CMP Performed By: #### L 500.4050, L100.0100 #### [facility] [address] [place], [address] ALT [Catalytic activity/Vol] 22 U/L Normal <=46 [facility] Comment on above: Order Comment: Order Date: 01/12/24Order Info: 3015-05 - TSHOrder Info: 3023-09 - T4FDRJN GETS RESULTS FOR TSH AND FT4 DR. BOB GETSRESULTS FOR CBCD AND CMP Performed By: #### L 500.4050, L100.0100 #### [facility] [address] [place], [place], [address] AST [Catalytic activity/Vol] 22 U/L Normal <=37 [facility] Comment on above: Order Comment: Order Date: 01/12/24Order Info: 3015-05 - TSHOrder Info: 3023-09 - T4FDRJN GETS RESULTS FOR TSH AND FT4 DR. BOB GETSRESULTS FOR CBCD AND CMP Performed By: #### L 500.4050, L100.0100 #### [facility] [address] [place], [address] Bilirubin [Mass/Vol] 0.44 mg/dL Normal 0.00-1.30 [facility] Comment on above: Order Comment: Order Date: 01/12/24Order Info: 3015-05 - TSHOrder Info: 3023-09 - T4FDRJN GETS RESULTS FOR TSH AND FT4 DR. BOB GETSRESULTS FOR CBCD AND CMP Performed By: #### L 500.4050, L100.0100 #### [facility] [address] [place], [place], [id number] [phone] BUN/CRE 14.6 RATIO Normal 10-20 [facility] Comment on above: Order Comment: Order Date: 01/12/24Order Info: 3015-05 - TSHOrder Info: 3023-09 - T4FDRJN GETS RESULTS FOR TSH AND FT4 DR. BOB GETSRESULTS FOR CBCD AND CMP Performed By: #### L 500.4050, L100.0100 #### [facility] [address] [place], [address] Calcium [Mass/Vol] 9.3 mg/dL Normal 7.6-11.0 [facility] Comment on above: Order Comment: Order Date: 01/12/24Order Info: 3 - TSHOrder Info: 3023-09 - T4FDRJN GETS RESULTS FOR TSH AND FT4 DR. BOB GETSRESULTS FOR CBCD AND CMP Performed By: #### L 500.4050, L100.0100 #### [facility] [address] [place], [place], [address] Chloride [Moles/Vol] 104 mmol/L Normal 98-108 [facility] Comment on above: Order Comment: Order Date: 01/12/24Order Info: 3 - TSHOrder Info: 7 - T4FDRJN GETS RESULTS FOR TSH AND FT4 DR. BOB GETSRESULTS FOR CBCD AND CMP Performed By: #### L 500.4050, L100.0100 #### [facility] [address] [place], [place], [id number] [phone] CO2 [Moles/Vol] 21.0 mmol/L Normal 21.0-32.0 [facility] Comment on above: Order Comment: Order Date: 01/12/24Order Info: 3015-05 - TSHOrder Info: 7 - T4FDRJN GETS RESULTS FOR TSH AND FT4 DR. BOB GETSRESULTS FOR CBCD AND CMP Performed By: #### L 500.4050, L100.0100 #### [facility] [address] [place], [address] Creatinine [Mass/Vol] 1.09 mg/dL Normal 0.70-1.20 [facility] Comment on above: Order Comment: Order Date: 01/12/24Order Info: 3015-05 - TSHOrder Info: 7 - T4FDRJN GETS RESULTS FOR TSH AND FT4 DR. BOB GETSRESULTS FOR CBCD AND CMP Performed By: #### L 500.4050, L100.0100 #### [facility] [address] [place], [address] GAP 12 Normal 5-15 [facility] Comment on above: Order Comment: Order Date: 01/12/24Order Info: 3 - TSHOrder Info: 3027 - T4FDRJN GETS RESULTS FOR TSH AND FT4 DR. BOB GETSRESULTS FOR CBCD AND CMP Performed By: #### L 500.4050, L100.0100 #### [facility] [address] [place], [address] GFR/1.73 sq M.predicted among non-blacks MDRD (S/P/Bld) [Vol rate/Area] 77 mL/min/{1.73_m2} Normal >60 [facility] Comment on above: Order Comment: Order Date: 01/12/24Order Info: 3 - TSHOrder Info: 3023-09 - T4JN TELLEZ GETS RESULTS FOR TSH AND FT4 DR. BOB GETSRESULTS FOR CBCD AND CMP Result Comment: mL/m in/1.73m2 CKD-EPI Creatinine Equation (2020) Performed By: #### L 500.4050, L100.0100 #### [facility] [address] [place], [address] Globulin (S) [Mass/Vol] 3.4 g/dL Normal 2.2-4.2 [facility] Comment on above: Order Comment: Order Date: 01/12/24Order Info: 3 - TSHOrder Info: 3023-09 - T4JN TELLEZ GETS RESULTS FOR TSH AND FT4 DR. BOB GETSRESULTS FOR CBCD AND CMP Performed By: #### L 500.4050, L100.0100 #### [facility] [address] [place], [address] Glucose [Mass/Vol] 106 mg/dL High 70-99 [facility] Comment on above: Order Comment: Order Date: 01/12/24Order Info: 3 - TSHOrder Info: 3023-09 - T4JN TELLEZ GETS RESULTS FOR TSH AND FT4 DR. BOB GETSRESULTS FOR CBCD AND CMP Performed By: #### L 500.4050, L100.0100 #### [facility] [address] [place], [address] Potassium [Moles/Vol] 4.3 mmol/L Normal 3.3-5.1 [facility] Comment on above: Order Comment: Order Date: 01/12/24Order Info: 3015-3 - TSHOrder Info: 3023-09 - T4JN TELLEZ GETS RESULTS FOR TSH AND FT4 DR. BOB GETSRESULTS FOR CBCD AND CMP Performed By: #### L 500.4050, L100.0100 #### [facility] [address] [place], [address] Sodium [Moles/Vol] 137 mmol/L Normal 133-145 [facility] Comment on above: Order Comment: Order Date: 01/12/24Order Info: 3 - TSHOrder Info: 3023-09 - T4JN TELLEZ GETS RESULTS FOR TSH AND FT4 DR. BOB GETSRESULTS FOR CBCD AND CMP Performed By: #### L 500.4050, L100.0100 #### [facility] [address] [place], [address] T PROT 7.6 g/dL Normal 5.9-8.4 [facility] Comment on above: Order Comment: Order Date: 01/12/24Order Info: 3 - TSHOrder Info: 3023-09 - T4JN TELLEZ GETS RESULTS FOR TSH AND FT4 DR. BOB GETSRESULTS FOR CBCD AND CMP Performed By: #### L 500.4050, L100.0100 #### [facility] [address] [place], [address] Urea nitrogen [Mass/Vol] 16 mg/dL Normal 4-19 [facility] Comment on above: Order Comment: Order Date: 01/12/24Order Info: 3 - TSHOrder Info: 3023-09 - T4JN TELLEZ GETS RESULTS FOR TSH AND FT4 DR. BOB GETSRESULTS FOR CBCD AND CMP Performed By: #### L 500.4050, L100.0100 #### [facility] [address] [place], [address] T4 Free Directon 07-04-2024 T4 FREE DIRECT 1.30 ng/dL Normal 0.76-1.46 [facility] Comment on above: Order Comment: Order Date: 01/12/24Order Info: 3 - TSHOrder Info: 3023-09 - T4JN TELLEZ GETS RESULTS FOR TSH AND FT4 DR. BOB GETSRESULTS FOR CBCD AND CMP Performed By: #### L 500.4050, L100.0100 #### [facility] [address] [place], [address] Thyroid Stim Hormone (TSH)on 07-04-2024 TSH 2.430 uIU/mL Normal 0.300-4.200 [facility] Comment on above: Order Comment: Order Date: 01/12/24Order Info: 3 - TSHOrder Info: 3023-09 - T4JN TELLEZ GETS RESULTS FOR TSH AND FT4 DR. BOB GETSRESULTS FOR CBCD AND CMP Performed By: #### L 500.4050, L100.0100 #### [facility] [address] [place], [address] CBC W/Diff, Automatedon 10-3 Absolute Lymph 2.01 X10 3/uL Normal 0.83-4.51 [facility] Comment on above: Order Comment: DR. Rosario RODRIGUEZ GETS CBCD AND CMP ALL Order Date: 11/05/23 Order Info: [id number] - CBC Order Info: [id number] - SED Performed By: #### L 100.0100 #### [facility] [address] [place], [address] Absolute Neut 2.8 X10 3/uL Normal 2.0-7.7 [facility] Comment on above: Order Comment: DR. Rosario RODRIGUEZ GETS CBCD AND CMP ALL Order Date: 11/05/23 Order Info: [id number] - CBC Order Info: [id number] - SED Performed By: #### L 100.0100 #### [facility] [address] [place], [address] Basophils/100 WBC (Bld) 0.7 % Normal 0-1 [facility] Comment on above: Order Comment: DR. Rosario RODRIGUEZ GETS CBCD AND CMP ALL Order Date: 11/05/23 Order Info: [id number] - CBC Order Info: [id number] - SED Performed By: #### L 100.0100 #### [facility] [address] [place], [address] Eosinophils/100 WBC (Bld) 6.0 % High 0-5 [facility] Comment on above: Order Comment: DR. Rosario RODRIGUEZ GETS CBCD AND CMP ALL Order Date: 11/05/23 Order Info: - CBC Order Info: [id number] - SED Performed By: #### L 100.0100 #### [facility] [address] [place], [address] Erythrocyte distribution width (RBC) [Ratio] 12.4 % Normal 11.6-14.6 [facility] Comment on above: Order Comment: DR. Rosario RODRIGUEZ GETS CBCD AND CMP ALL Order Date: 11/05/23 Order Info: [id number] - CBC Order Info: [id number] - SED Performed By: #### L 100.0100 #### [facility] [address] [place], [address] Hematocrit (Bld) [Volume fraction] 47.5 % Normal 40-54 [facility] Comment on above: Order Comment: DR. Rosario RODRIGUEZ GETS CBCD AND CMP ALL Order Date: 11/05/23 Order Info: [id number] - CBC Order Info: - SED Performed By: #### L 100.0100 #### [facility] [address] [place], [address] Hemoglobin (Bld) [Mass/Vol] 16.1 g/dL Normal 13.0-16.5 [facility] Comment on above: Order Comment: DR. Rosario RODRIGUEZ GETS CBCD AND CMP ALL Order Date: 11/05/23 Order Info: [id number] - CBC Order Info: - SED Performed By: #### L 100.0100 #### [facility] [address] [place], [address] IG% 0.200 Normal 0.0-0.9 [facility] Comment on above: Order Comment: DR. Rosario RODRIGUEZ GETS CBCD AND CMP ALL Order Date: 11/05/23 Order Info: [id number] - CBC Order Info: - SED Result Comment: IG% - Immature Granulocytes (promyelocytes, myelocytes and metamyelocytes) > 1% indicates that a LEFT SHIFT is Present. Performed By: #### L 100.0100 #### [facility] [address] [place], [address] Lymphocytes/100 WBC (Bld) 35.5 % Normal 19-41 [facility] Comment on above: Order Comment: DR. Rosario RODRIGUEZ GETS CBCD AND CMP ALL Order Date: 11/05/23 Order Info: [id number] - CBC Order Info: - SED Performed By: #### L 100.0100 #### [facility] [address] [place], [address] MCH (RBC) [Entitic mass] 30.6 pg Normal 27.0-32.0 [facility] Comment on above: Order Comment: DR. Rosario RODRIGUEZ GETS CBCD AND CMP ALL Order Date: 11/05/23 Order Info: [id number] - CBC Order Info: - SED Performed By: #### L 100.0100 #### [facility] [address] [place], [address] MCHC (RBC) [Mass/Vol] 33.9 g/dL Normal 32-36 [facility] Comment on above: Order Comment: DR. Rosario RODRIGUEZ GETS CBCD AND CMP ALL Order Date: 11/05/23 Order Info: [id number] - CBC Order Info: [id number] - SED Performed By: #### L 100.0100 #### [facility] [address] [place], [address] MCV (RBC) [Entitic vol] 90.1 fL Normal 80-94 [facility] Comment on above: Order Comment: DR. Rosario RODRIGUEZ GETS CBCD AND CMP ALL Order Date: 11/05/23 Order Info: - CBC Order Info: [id number] - SED Performed By: #### L 100.0100 #### [facility] [address] [place], [address] Monocytes/100 WBC (Bld) 8.7 % Normal 0-10 [facility] Comment on above: Order Comment: DR. Rosario RODRIGUEZ GETS CBCD AND CMP ALL Order Date: 11/05/23 Order Info: [id number] - CBC Order Info: [id number] - SED Performed By: #### L 100.0100 #### [facility] [address] [place], [address] Neutrophils/100 WBC (Bld) 48.9 % Normal 47-70 [facility] Comment on above: Order Comment: DR. Rosario RODRIGUEZ GETS CBCD AND CMP ALL Order Date: 11/05/23 Order Info: [id number] - CBC Order Info: [id number] - SED Performed By: #### L 100.0100 #### [facility] [address] [place], [address] Nucleated RBC (Bld) [#/Vol] 0 10*3/uL Normal 0-5 [facility] Comment on above: Order Comment: DR. Rosario RODRIGUEZ GETS CBCD AND CMP ALL Order Date: 11/05/23 Order Info: [id number] - CBC Order Info: [id number] - SED Performed By: #### L 100.0100 #### [facility] [address] [place], [address] ( Platelet mean volume (Bld) [Entitic vol] 9.9 fL Normal 6.2-12.0 [facility] Comment on above: Order Comment: DR. Rosario RODRIGUEZ GETS CBCD AND CMP ALL Order Date: 11/05/23 Order Info: - CBC Order Info: - SED Performed By: #### L 100.0100 #### [facility] [address] [place], [address] Platelets (Bld) [#/Vol] 277 10*3/uL Normal 150-450 [facility] Comment on above: Order Comment: DR. Rosario RODRIGUEZ GETS CBCD AND CMP ALL Order Date: 11/05/23 Order Info: - CBC Order Info: - SED Performed By: #### L 100.0100 #### [facility] [address] [place], [address] RBC (Bld) [#/Vol] 5.27 10*6/uL Normal 4.6-6.2 [facility] Comment on above: Order Comment: DR. Rosario RODRIGUEZ GETS CBCD AND CMP ALL Order Date: 11/05/23 Order Info: [id number] - CBC Order Info: - SED Performed By: #### L 100.0100 #### [facility] [address] [place], [address] RDW SD 41.0 fl Normal 35.1-43.9 [facility] Comment on above: Order Comment: DR. Rosario RODRIGUEZ GETS CBCD AND CMP ALL Order Date: 11/05/23 Order Info: - CBC Order Info: - SED Performed By: #### L 100.0100 #### [facility] [address] [place], [address] WBC (Bld) [#/Vol] 5.7 10*3/uL Normal 4.4-11.0 [facility] Comment on above: Order Comment: DR. Rosario RODRIGUEZ GETS CBCD AND CMP ALL Order Date: 11/05/23 Order Info: [id number] - CBC Order Info: [id number] - SED Performed By: #### L 100.0100 #### [facility] [address] [place], [address] Comprehensive Metabolic Prof laon 01-07-2024 Albumin [Mass/Vol] 3.8 g/dL Normal 3.2-5.0 [facility] Comment on above: Order Comment: DR. Rosario RODRIGUEZ GETS CBCD AND CMP ALL Order Date: 11/05/23 Order Info: 07 - CMP Order Info: [id number] - LIPID Order Info: 3 - TSH Order Info: [id number] - PSA Order Info: 7 - T4F Performed By: #### L 501.9520, L500.4100, L500.4050, L506.1000, L506.0400, L501.9910, L101.9900 #### [facility] [address] [place], [address] Albumin/Globulin [Mass ratio] 1.0 {ratio} Normal 0.9-2.4 [facility] Comment on above: Order Comment: DR. Rosario RODRIGUEZ GETS CBCD AND CMP ALL Order Date: 11/05/23 Order Info: [id number] - CMP Order Info: [id number] - LIPID Order Info: 3 - TSH Order Info: [id number] - PSA Order Info: [id number] - T4F Performed By: #### L 501.9520, L500.4100, L500.4050, L506.1000, L506.0400, L501.9910, L101.9900 #### [facility] [address] [place], [address] ALK P 67 U/L Normal 45-117 [facility] Comment on above: Order Comment: DR. Rosario RODRIGUEZ GETS CBCD AND CMP ALL Order Date: 11/05/23 Order Info: 785-03 - CMP Order Info: - LIPID Order Info: [id number] - TSH Order Info: 2856-03 - PSA Order Info: [id number] - T4F Performed By: #### L 501.9520, L500.4100, L500.4050, L506.1000, L506.0400, L501.9910, L101.9900 #### [facility] [address] [place], [address] ALT [Catalytic activity/Vol] 29 U/L Normal 16-61 [facility] Comment on above: Order Comment: DR. Rosario RODRIGUEZ GETS CBCD AND CMP ALL Order Date: 11/05/23 Order Info: 785-03 - CMP Order Info: - LIPID Order Info: [id number] - TSH Order Info: 2856-03 - PSA Order Info: 7 - T4F Performed By: #### L 501.9520, L500.4100, L500.4050, L506.1000, L506.0400, L501.9910, L101.9900 #### [facility] [address] [place], [address] AST [Catalytic activity/Vol] 23 U/L Normal 15-37 [facility] Comment on above: Order Comment: DR. Rosario RODRIGUEZ GETS CBCD AND CMP ALL Order Date: 11/05/23 Order Info: 785-03 - CMP Order Info: - LIPID Order Info: [id number] - TSH Order Info: 2856-03 - PSA Order Info: 3024-7 - T4F Performed By: #### L 501.9520, L500.4100, L500.4050, L506.1000, L506.0400, L501.9910, L101.9900 #### [facility] [address] [place], [address] Bilirubin [Mass/Vol] 0.60 mg/dL Normal 0.20-1.00 [facility] Comment on above: Order Comment: DR. Rosario RODRIGUEZ GETS CBCD AND CMP ALL Order Date: 11/05/23 Order Info: 785-03 - CMP Order Info: - LIPID Order Info: [id number] - TSH Order Info: 2856-03 - PSA Order Info: 3027 - T4F Result Comment: For patients on eltrombopag therapy, use of Dimension [place] TBIL is not recommended. Performed By: #### L 501.9520, L500.4100, L500.4050, L506.1000, L506.0400, L501.9910, L101.9900 #### [facility] [address] [place], [address] BUN/CRE 13.1 RATIO Normal 10-20 [facility] Comment on above: Order Comment: DR. Rosario RODRIGUEZ GETS CBCD AND CMP ALL Order Date: 11/05/23 Order Info: 785-03 - CMP Order Info: - LIPID Order Info: [id number] - TSH Order Info: 2856-03 - PSA Order Info: 7 - T4F Performed By: #### L 501.9520, L500.4100, L500.4050, L506.1000, L506.0400, L501.9910, L101.9900 #### [facility] [address] [place], [address] CA,Total 9.1 mg/dL Normal 8.5-10.1 [facility] Comment on above: Order Comment: DR. Rosario RODRIGUEZ GETS CBCD AND CMP ALL Order Date: 11/05/23 Order Info: 785-03 - CMP Order Info: - LIPID Order Info: [id number] - TSH Order Info: 2856-03 - PSA Order Info: [id number] - T4F Performed By: #### L 501.9520, L500.4100, L500.4050, L506.1000, L506.0400, L501.9910, L101.9900 #### [facility] [address] [place], [address] Chloride [Moles/Vol] 107 mmol/L Normal 98-107 [facility] Comment on above: Order Comment: DR. Rosario RODRIGUEZ GETS CBCD AND CMP ALL Order Date: 11/05/23 Order Info: 785- - CMP Order Info: [id number] - LIPID Order Info: 3 - TSH Order Info: 2856-03 - PSA Order Info: 3027 - T4F Performed By: #### L 501.9520, L500.4100, L500.4050, L506.1000, L506.0400, L501.9910, L101.9900 #### [facility] [address] [place], [address] CO2 [Moles/Vol] 24.0 mmol/L Normal 21.0-32.0 [facility] Comment on above: Order Comment: DR. Rosario RODRIGUEZ GETS CBCD AND CMP ALL Order Date: 11/05/23 Order Info: 785-03 - CMP Order Info: - LIPID Order Info: [id number] - TSH Order Info: 2856-03 - PSA Order Info: 7 - T4F Performed By: #### L 501.9520, L500.4100, L500.4050, L506.1000, L506.0400, L501.9910, L101.9900 #### [facility] [address] [place], [address] Creatinine [Mass/Vol] 1.07 mg/dL Normal 0.70-1.30 [facility] Comment on above: Order Comment: DR. Rosario RODRIGUEZ GETS CBCD AND CMP ALL Order Date: 11/05/23 Order Info: 785-03 - CMP Order Info: [id number] - LIPID Order Info: 3 - TSH Order Info: 2856-03 - PSA Order Info: 3024-7 - T4F Result Comment: The validity of the calculated GFR GFRAA in patients over 70 years has not been determined. Clinical correlation is essential. Performed By: #### L 501.9520, L500.4100, L500.4050, L506.1000, L506.0400, L501.9910, L101.9900 #### [facility] [address] [place], [place], [id number] (757) EST GFR - AA 90 mL/min Normal >60 [facility] Comment on above: Order Comment: DR. Rosario RODRIGUEZ GETS CBCD AND CMP ALL Order Date: 11/05/23 Order Info: 785-03 - CMP Order Info: - LIPID Order Info: [id number] - TSH Order Info: 2856-03 - PSA Order Info: 3023-09 - T4F Result Comment: Afri can Martiniquais GFR Calc Performed By: #### L 501.9520, L500.4100, L500.4050, L506.1000, L506.0400, L501.9910, L101.9900 #### [facility] [address] [place], [place], [id number] [phone]) GAP 6 Normal 5-15 [facility] Comment on above: Order Comment: DR. Rosario RODRIGUEZ GETS CBCD AND CMP ALL Order Date: 11/05/23 Order Info: 785-03 - CMP Order Info: - LIPID Order Info: [id number] - TSH Order Info: 2856-03 - PSA Order Info: 3023-09 - T4F Performed By: #### L 501.9520, L500.4100, L500.4050, L506.1000, L506.0400, L501.9910, L101.9900 #### [facility] [address] [place], [address] GFR/1.73 sq M.predicted among non-blacks MDRD (S/P/Bld) [Vol rate/Area] 75 mL/min/{1.73_m2} Normal >60 [facility] Comment on above: Order Comment: DR. Rosario RODRIGUEZ GETS CBCD AND CMP ALL Order Date: 11/05/23 Order Info: 785-03 - CMP Order Info: - LIPID Order Info: 3015-05 - TSH Order Info: [id number] - PSA Order Info: 3024-7 - T4F Result Comment: Non- GFR Calc Performed By: #### L 501.9520, L500.4100, L500.4050, L506.1000, L506.0400, L501.9910, L101.9900 #### [facility] [address] [place], [address] Globulin (S) [Mass/Vol] 3.9 g/dL Normal 2.2-4.2 [facility] Comment on above: Order Comment: DR. Rosario RODRIGUEZ GETS CBCD AND CMP ALL Order Date: 11/05/23 Order Info: 785-03 - CMP Order Info: - LIPID Order Info: [id number] - TSH Order Info: 2856-03 - PSA Order Info: 7 - T4F Performed By: #### L 501.9520, L500.4100, L500.4050, L506.1000, L506.0400, L501.9910, L101.9900 #### [facility] [address] [place], [address] Glucose [Mass/Vol] 98 mg/dL Normal 74-106 [facility] Comment on above: Order Comment: DR. Rosario RODRIGUEZ GETS CBCD AND CMP ALL Order Date: 11/05/23 Order Info: 785-03 - CMP Order Info: - LIPID Order Info: [id number] - TSH Order Info: 2856-03 - PSA Order Info: 3024-7 - T4F Performed By: #### L 501.9520, L500.4100, L500.4050, L506.1000, L506.0400, L501.9910, L101.9900 #### [facility] [address] [place], [address] Potassium [Moles/Vol] 4.1 mmol/L Normal 3.5-5.1 [facility] Comment on above: Order Comment: DR. Rosario RODRIGUEZ GETS CBCD AND CMP ALL Order Date: 11/05/23 Order Info: 785- - CMP Order Info: [id number] - LIPID Order Info: 3 - TSH Order Info: 2856-03 - PSA Order Info: 3024-7 - T4F Performed By: #### L 501.9520, L500.4100, L500.4050, L506.1000, L506.0400, L501.9910, L101.9900 #### [facility] [address] [facility] [place], [address] Sodium [Moles/Vol] 137 mmol/L Normal 136-145 [facility] Comment on above: Order Comment: DR. Rosario RODRIGUEZ GETS CBCD AND CMP ALL Order Date: 11/05/23 Order Info: 785-03 - CMP Order Info: - LIPID Order Info: [id number] - TSH Order Info: 2856-03 - PSA Order Info: 3024-7 - T4F Performed By: #### L 501.9520, L500.4100, L500.4050, L506.1000, L506.0400, L501.9910, L101.9900 #### [facility] [address] [place], [address] T PROT 7.7 g/dL Normal 6.4-8.2 [facility] Comment on above: Order Comment: DR. Rosario RODRIGUEZ GETS CBCD AND CMP ALL Order Date: 11/05/23 Order Info: 785-03 - CMP Order Info: [id number] - LIPID Order Info: 3 - TSH Order Info: 2856-03 - PSA Order Info: 3024-7 - T4F Performed By: #### L 501.9520, L500.4100, L500.4050, L506.1000, L506.0400, L501.9910, L101.9900 #### [facility] [address] [place], [address] Urea nitrogen [Mass/Vol] 14 mg/dL Normal 7-18 [facility] Comment on above: Order Comment: DR. Rosario RODRIGUEZ GETS CBCD AND CMP ALL Order Date: 11/05/23 Order Info: 785-03 - CMP Order Info: - LIPID Order Info: [id number] - TSH Order Info: 2856-03 - PSA Order Info: 3023-09 - T4F Performed By: #### L 501.9520, L500.4100, L500.4050, L506.1000, L506.0400, L501.9910, L101.9900 #### [facility] [address] [place], [place], [id number] Erythrocyte Sed Rateon 01-06 SED RATE 9 mm/hr Normal 0-20 [facility] Comment on above: Order Comment: DR. Rosario RODRIGUEZ GETS CBCD AND CMP ALL Order Date: 11/05/23 Order Info: [id number] - CBC Order Info: [id number] - SED Performed By: #### L 501.9520, L500.4100, L500.4050, L506.1000, L506.0400, L501.9910, L101.9900 #### [facility] [address] [place], [address] Lipid Profileon 01-07-2024 Cholesterol [Mass/Vol] 219 mg/dL High 200 [facility] Comment on above: Order Comment: DR. [...] L500.4100, L500.4050, L506.1000, L506.0400, L501.9910, L101.9900 #### [facility] [address] [place], [address] Cholesterol in HDL [Mass/Vol] 47 mg/dL Normal [facility] Comment on above: Order Comment: [...] L500.4100, L500.4050, L506.1000, L506.0400, L501.9910, L101.9900 #### [facility] [address] [place], [address] Cholesterol in LDL [Mass/Vol] 143 mg/dL High 0-130 [facility] Comment on above: Order Comment: DR. Rosario RODRIGUEZ GETS CBCD AND CMP ALL Order Date: 11/05/23 Order Info: 785-03 - CMP Order Info: - LIPID Order Info: [id number] - TSH Order Info: 2856-03 - PSA Order Info: 3023-09 T4F Performed By: #### L 501.9520, L500.4100, L500.4050, L506.1000, L506.0400, L501.9910, L101.9900 #### [facility] [address] [place], [address] Cholesterol in VLDL [Mass/Vol] 29 mg/dL Normal 5-40 [facility] Comment on above: Order Comment: DR. Rosario RODRIGUEZ GETS CBCD AND CMP ALL Order Date: 11/05/23 Order Info: 785-03 - CMP Order Info: - LIPID Order Info: [id number] - TSH Order Info: 2856-03 - PSA Order Info: 3023-09 T4F Performed By: #### L 501.9520, L500.4100, L500.4050, L506.1000, L506.0400, L501.9910, L101.9900 #### [facility] [address] [facility] [place], [place], [id number] Triglyceride [Mass/Vol] 147 mg/dL Normal [facility] Comment on above: Order Comment: [...] L500.4100, L500.4050, L506.1000, L506.0400, L501.9910, L101.9900 #### [facility] [address] [facility] [place], [place], [id number] PSA,Total - Annual Screenon 01-07-2024 PSA,TOT SCREEN 2.83 ng/mL Normal 0.00-4.00 [facility] Comment on above: Order Comment: [...] L500.4100, L500.4050, L506.1000, L506.0400, L501.9910, L101.9900 #### [facility] [address] [place], [address] T4 Free Directon 01-07-2024 T4 FREE DIRECT 1.16 ng/dL Normal 0.76-1.46 [facility] Comment on above: Order Comment: DR. Rosario RODRIGUEZ GETS CBCD AND CMP ALL Order Date: 11/05/23 Order Info: 785-03 - CMP Order Info: [id number] - LIPID Order Info: 3 - TSH Order Info: 2856-03 - PSA Order Info: 3023-09 - T4F Performed By: #### L 501.9520, L500.4100, L500.4050, L506.1000, L506.0400, L501.9910, L101.9900 #### [facility] [address] [place], [address] Thyroid Stim Hormone (TSH)on 01-07-2024 TSH 4.010 uIU/mL High 0.358-3.740 [facility] Comment on above: Order Comment: DR. Rosario RODRIGUEZ GETS CBCD AND CMP ALL Order Date: 11/05/23 Order Info: 785-03 - CMP Order Info: - LIPID Order Info: [id number] - TSH Order Info: 2856-03 - PSA Order Info: 7 - T4F Performed By: #### L 501.9520, L500.4100, L500.4050, L506.1000, L506.0400, L501.9910, L101.9900 #### [facility] [address] [place], [address] Vitamin D,25 Hydroxyon 01-06 Vitamin D 25-OH 49.7 ng/mL Normal [facility] Comment on above: Order Comment: DR. Rosario RODRIGUEZ GETS CBCD AND CMP ALL Order Date: 11/05/23 Order Info: [id number] - VITD25 Result Comment: Linda min D 25(OH) Status Range Deficiency <20 ng/mL (50nmol/L) Insufficiency 20 - 30 ng/mL (50 - 75 nmol/L) Sufficiency 30 - 100 ng/mL (75 - 250 nmol/L) Toxicity >100 ng/mL (>250 nmol/L) Performed By: #### L 501.9520, L500.4100, L500.4050, L506.1000, L506.0400, L501.9910, L101.9900 #### [facility] [address] [place], [address] CBC W/Diff, Automatedon 05-0 Absolute Lymph 2.30 X10 3/uL Normal 0.83-4.51 [facility] Comment on above: Performed By: #### L 500.4050, L100.0100 #### [facility] [address] [place], [address] Absolute Neut 3.0 X10 3/uL Normal 2.0-7.7 [facility] Comment on above: Performed By: #### L 500.4050, L100.0100 #### [facility] [address] [place], [address] Basophils/100 WBC (Bld) 1.3 % High 0-1 [facility] Comment on above: Performed By: #### L 500.4050, L100.0100 #### [facility] [address] [place], [address] Eosinophils/100 WBC (Bld) 4.8 % Normal 0-5 [facility] Comment on above: Performed By: #### L 500.4050, L100.0100 #### [facility] [address] [place], [address] Erythrocyte distribution width (RBC) [Ratio] 12.7 % Normal 11.6-14.6 [facility] Comment on above: Performed By: #### L 500.4050, L100.0100 #### [facility] [address] [place], [address] Hematocrit (Bld) [Volume fraction] 48.7 % Normal 40-54 [facility] Comment on above: Performed By: #### L 500.4050, L100.0100 #### [facility] [address] [place], [address] Hemoglobin (Bld) [Mass/Vol] 16.3 g/dL Normal 13.0-16.5 [facility] Comment on above: Performed By: #### L 500.4050, L100.0100 #### [facility] [address] [place], [address] IG% 0.200 Normal 0.0-0.9 [facility] Comment on above: Result Comment: IG% - Immature Granulocytes (promyelocytes, myelocytes and metamyelocytes) > 1% indicates that a LEFT SHIFT is Present. Performed By: #### L 500.4050, L100.0100 #### [facility] [address] [place], [address] Lymphocytes/100 WBC (Bld) 36.9 % Normal 19-41 [facility] Comment on above: Performed By: #### L 500.4050, L100.0100 #### [facility] [address] [place], [address] MCH (RBC) [Entitic mass] 30.1 pg Normal 27.0-32.0 [facility] Comment on above: Performed By: #### L 500.4050, L100.0100 #### [facility] [address] [place], [address] MCHC (RBC) [Mass/Vol] 33.5 g/dL Normal 32-36 [facility] Comment on above: Performed By: #### L 500.4050, L100.0100 #### [facility] [address] [place], [address] MCV (RBC) [Entitic vol] 90.0 fL Normal 80-94 [facility] Comment on above: Performed By: #### L 500.4050, L100.0100 #### [facility] [address] [place], [address] Monocytes/100 WBC (Bld) 9.0 % Normal 0-10 [facility] Comment on above: Performed By: #### L 500.4050, L100.0100 #### [facility] [address] [place], [address] Neutrophils/100 WBC (Bld) 47.8 % Normal 47-70 [facility] Comment on above: Performed By: #### L 500.4050, L100.0100 #### [facility] [address] [place], [address] Nucleated RBC (Bld) [#/Vol] 0 10*3/uL Normal 0-5 [facility] Comment on above: Performed By: #### L 500.4050, L100.0100 #### [facility] [address] [place], [address] Platelet mean volume (Bld) [Entitic vol] 9.5 fL Normal 6.2-12.0 [facility] Comment on above: Performed By: #### L 500.4050, L100.0100 #### [facility] [address] [place], [address] Platelets (Bld) [#/Vol] 264 10*3/uL Normal 150-450 [facility] Comment on above: Performed By: #### L 500.4050, L100.0100 #### [facility] [address] [place], [address] RBC (Bld) [#/Vol] 5.41 10*6/uL Normal 4.6-6.2 [facility] Comment on above: Performed By: #### L 500.4050, L100.0100 #### [facility] [address] [place], [address] RDW SD 41.5 fl Normal 35.1-43.9 [facility] Comment on above: Performed By: #### L 500.4050, L100.0100 #### [facility] [address] [place], [address] WBC (Bld) [#/Vol] 6.2 10*3/uL Normal 4.4-11.0 [facility] Comment on above: Performed By: #### L 500.4050, L100.0100 #### [facility] [address] [place], [address] Comprehensive Metabolic Prof [facility] 07[facility]23 Albumin [Mass/Vol] 4.0 g/dL Normal 3.2-5.0 [facility] Comment on above: Performed By: #### L 500.4050, L100.0100 #### [facility] [address] [place], [address] Albumin/Globulin [Mass ratio] 1.1 {ratio} Normal 0.9-2.4 [facility] Comment on above: Performed By: #### L 500.4050, L100.0100 #### [facility] [address] [place], [address] ALK P 63 U/L Normal 45-117 [facility] Comment on above: Performed By: #### L 500.4050, L100.0100 #### [facility] [address] [place], [address] ALT [Catalytic activity/Vol] 28 U/L Normal 16-61 [facility] Comment on above: Performed By: #### L 500.4050, L100.0100 #### [facility] [address] [place], [address] AST [Catalytic activity/Vol] 22 U/L Normal 15-37 [facility] Comment on above: Performed By: #### L 500.4050, L100.0100 #### [facility] [address] [place], [address] Bilirubin [Mass/Vol] 0.40 mg/dL Normal 0.20-1.00 [facility] Comment on above: Result Comment: For patients on eltrombopag therapy, use of Dimension [place] TBIL is not recommended. Performed By: #### L 500.4050, L100.0100 #### [facility] [address] [place], [address] BUN/CRE 13.3 RATIO Normal 10-20 [facility] Comment on above: Performed By: #### L 500.4050, L100.0100 #### [facility] [address] [place], [address] CA,Total 9.2 mg/dL Normal 8.5-10.1 [facility] Comment on above: Performed By: #### L 500.4050, L100.0100 #### [facility] [address] [place], [address] Chloride [Moles/Vol] 108 mmol/L High 98-107 [facility] Comment on above: Performed By: #### L 500.4050, L100.0100 #### [facility] [address] [place], [address] CO2 [Moles/Vol] 25.0 mmol/L Normal 21.0-32.0 [facility] Comment on above: Performed By: #### L 500.4050, L100.0100 #### [facility] [address] [place], [address] Creatinine [Mass/Vol] 1.13 mg/dL Normal 0.70-1.30 [facility] Comment on above: Result Comment: The validity of the calculated GFR GFRAA in patients over 70 years has not been determined. Clinical correlation is essential. Performed By: #### L 500.4050, L100.0100 #### [facility] [address] [place], [address] EST GFR - AA 85 mL/min Normal >60 [facility] Comment on above: Result Comment: Afri can [place]iquais GFR Calc Performed By: #### L 500.4050, L100.0100 #### [facility] [address] [place], [address] GAP 5 Normal 5-15 [facility] Comment on above: Performed By: #### L 500.4050, L100.0100 #### [facility] [address] [place], [address] GFR/1.73 sq M.predicted among non-blacks MDRD (S/P/Bld) [Vol rate/Area] 70 mL/min/{1.73_m2} Normal >60 [facility] Comment on above: Result Comment: Non- GFR Calc Performed By: #### L 500.4050, L100.0100 #### [facility] [address] [place], [address] Globulin (S) [Mass/Vol] 3.7 g/dL Normal 2.2-4.2 [facility] Comment on above: Performed By: #### L 500.4050, L100.0100 #### [facility] [address] [place], [address] Glucose [Mass/Vol] 105 mg/dL Normal 74-106 [facility] Comment on above: Result Comment: Fast ing Glucose result from 100 to 125 mg/dL suggests IMPAIRED HOMEOSTASIS per A.D.A. criteria. Performed By: #### L 500.4050, L100.0100 #### [facility] [address] [place], [address] Potassium [Moles/Vol] 4.1 mmol/L Normal 3.5-5.1 [facility] Comment on above: Performed By: #### L 500.4050, L100.0100 #### [facility] [address] [place], [address] Sodium [Moles/Vol] 138 mmol/L Normal 136-145 [facility] Comment on above: Performed By: #### L 500.4050, L100.0100 #### [facility] [address] [place], [address] T PROT 7.7 g/dL Normal 6.4-8.2 [facility] Comment on above: Performed By: #### L 500.4050, L100.0100 #### [facility] [address] [place], [address] Urea nitrogen [Mass/Vol] 15 mg/dL Normal 7-18 [facility] Comment on above: Performed By: #### [id number], L100.0100 #### [facility] Laboratory [address] [place], [address] Absolute lymphocyte countOrd ered By: Royce Ragsdale on 01-27-2023 Lymphocytes Auto (Unsp spec) [#/Vol] 2.51 10*3/uL 0.83-4.51 [facility] Basophil percentageOrdered B y: Royce Ragsdale on 01-27-2023 Basophils/100 WBC (Bld) 0.6 % 0-1 [facility] Bilirubin [Mass/Vol] 0.30 mg/dL 0.20-1.00 [facility] Comment on above: For patients on eltr ombopag therapy, use of Dimension [place] TBIL is not recommended. Chloride [Moles/Vol] 108 mmol/L 98-107 [facility] Eosinophils/100 WBC (Bld) 3.5 % 0-5 [facility] Glucose [Mass/Vol] 80 mg/dL 74-106 [facility] Neutrophils (Bld) [#/Vol] 4.4 10*3/uL 2.0-7.7 [facility] Neutrophils/100 WBC (Bld) 55.5 % 47-70 [facility] Potassium [Moles/Vol] 4.2 mmol/L 3.5-5.1 [facility] Protein [Mass/Vol] 7.5 g/dL 6.4-8.2 [facility] Sodium [Moles/Vol] 140 mmol/L 136-145 [facility] WBC (Bld) [#/Vol] 8.0 10*3/uL 4.4-11.0 [facility] Blood erythrocytes count (nu mber/volume)Ordered By: Royce Ragsdale on 01-27-2023 RBC (Bld) [#/Vol] 5.20 10*6/uL 4.6-6.2 [facility] Blood hemoglobin measurement (mass/volume)Ordered By: Royce Ragsdale on 01-27-2023 Hemoglobin (Bld) [Mass/Vol] 15.5 g/dL 13.0-16.5 [facility] Blood lymphocytes/100 leukoc ytesOrdered By: Royce Ragsdale on 01-27-2023 Lymphocytes/100 WBC (Bld) 31.3 % 19-41 [facility] Blood monocytes/100 leukocyt esOrdered By: Royce Ragsdale on 01-27-2023 Monocytes/100 WBC (Bld) 9.0 % 0-10 [facility] Blood platelet mean volumeOr dered By: Royce Ragsdale on 01-27-2023 Platelet mean volume (Bld) [Entitic vol] 9.6 fL 6.2-12.0 [facility] Determination of erythrocyte mean corpuscular volume (MCV)Ordered By: Royce Ragsdale on 01-27-2023 MCV (RBC) [Entitic vol] 91.2 fL 80-94 [facility] Hematocrit Auto (Bld) [Volum e fraction]Ordered By: Royce Ragsdale on 01-27-2023 Hematocrit (Bld) [Volume fraction] 47.4 % 40-54 [facility] Laboratory - Chemistry and C hemistry - challengeOrdered By: Royce Ragsdale on 01-27-2023 ALP [Catalytic activity/Vol] 63 U/L 45-117 [facility] ALT [Catalytic activity/Vol] 31 U/L 16-61 [facility] CO2 [Moles/Vol] 27.0 mmol/L 21.0-32.0 [facility] Free T4 [Mass/Vol] 1.16 ng/dL 0.76-1.46 [facility] Globulin (S) [Mass/Vol] 3.6 g/dL 2.2-4.2 [facility] Urea nitrogen/Creatinine [Mass ratio] 13.7 mg/mg 10-20 [facility] Laboratory - Hematology and Cell countsOrdered By: Royce Ragsdale on 01-27-2023 Erythrocyte distribution width (RBC) [Entitic vol] 42.4 fL 35.1-43.9 [facility] Erythrocyte distribution width (RBC) [Ratio] 12.6 % 11.6-14.6 [facility] Immature granulocytes/100 WBC (Bld) 0.100 % 0.0-0.9 [facility] Comment on above: IG% - Immature Granu locytes (promyelocytes, myelocytes and metamyelocytes) > 1% indicates that a LEFT SHIFT is Present. MCH (RBC) [Entitic mass] 29.8 pg 27.0-32.0 [facility] Nucleated RBC/100 WBC (Bld) [Ratio] 0 % 0-5 [facility] MCHC Auto (RBC) [Mass/Vol]Or dered By: Royce Ragsdale on 01-27-2023 MCHC (RBC) [Mass/Vol] 32.7 g/dL 32-36 [facility] No Panel InformationOrdered By: Royce Ragsdale on 01-27-2023 Estimated GFR (MDRD) Amer 82 mL/min >60 [facility] Comment on above: GFR Calc Estimated GFR (MDRD) Non-Af Amer 68 mL/min >60 [facility] Comment on above: Non- GFR Calc Thyroid Stimulating Hormone (TSH) 0.66 uIU/mL 0.358-3.74 [facility] Platelets bldOrdered By: Thong mullins Jn on 01-27-2023 Platelets (Bld) [#/Vol] 285 10*3/uL 150-450 [facility] Serum or plasma albumin april urement (mass/volume)Ordered By: Royce Ragsdale on 01-27-2023 Albumin [Mass/Vol] 3.9 g/dL 3.2-5.0 [facility] Serum or plasma albumin/glob ulin mass ratioOrdered By: Royce Ragsdale on 01-27-2023 Albumin/Globulin [Mass ratio] 1.1 {ratio} 0.9-2.4 [facility] Serum or plasma calcium april urement (mass/volume)Ordered By: Royce Ragsdale on 01-27-2023 Calcium [Mass/Vol] 8.9 mg/dL 8.5-10.1 [facility] Serum or plasma creatinine m easurement (mass/volume)Ordered By: Royce Ragsdale on 01-27-2023 Creatinine [Mass/Vol] 1.17 mg/dL 0.70-1.30 [facility] Comment on above: The validity of the calculated GFR & GFRAA in patients over 70 years has not been determined. Clinical correlation is essential. Serum or plasma urea nitroge n measurement (mass/volume)Ordered By: Royce Ragsdale on 01-27-2023 Urea nitrogen [Mass/Vol] 16 mg/dL 7-18 [facility] Thin prep Papanicolaou smear with manual screeningOrdered By: Royce Ragsdale on 01-27-2023 Thin prep Papanicolaou smear with manual screening 18 U/L 15-37 [facility] Thin prep Papanicolaou smear with manual screening 5 5-15 [facility] Basophil percentageOrdered B y: Royce Ragsdale on 11-17-2022 Cholesterol [Mass/Vol] 187 mg/dL <200 [facility] Comment on above: <200 mg/dL Desirable 200-240 mg/dL Borderline >240 mg/dL High Risk Testosterone [Mass/Vol] 639.86 ng/dL [facility] Comment on above: CENTRAL 90% REFERENC E RANGES MALE AGE <50 197.44 - 669.58 ng/dL MALE AGE > or = 50 187.72 - 684.19 ng/dL FEMALE AGE <50 8.38 - 35.01 ng/dL FEMALE AGE > or = 50 <7.00 - 35.92 ng/dL Effective as of 10/02/20 Triglyceride [Mass/Vol] 144 mg/dL <199 [facility] Comment on above: The drugs N-Acetylcy steine and Metamizole may falsely depress this assay.Serum Triglycerides Reference Interval Normal <150 mg/dL Borderline high 150 - 199 mg/dL High 200 - 499 mg/dL Very High > or = 500 mg/dL Erythrocyte sedimentation ra teOrdered By: Royce Ragsdale on 11-17-2022 ESR (Bld) [Velocity] 10 mm/h 0-20 [facility] Iron measurement (mass/mass) Ordered By: Royce Ragsdale on 11-17-2022 Iron (Unsp spec) [Mass/Mass] 136 ug/dL 65-175 [facility] Laboratory - Chemistry and C hemistry - challengeOrdered By: Royce Ragsdale on 11-17-2022 Cobalamin (Vitamin B12) [Mass/Vol] 258 pg/mL 211-911 [facility] Free T4 [Mass/Vol] 1.61 ng/dL 0.76-1.46 [facility] No Panel InformationOrdered By: Royce Ragsdale on 11-17-2022 Prostate Specific Antigen Screen 2.47 ng/mL 0.00-4.00 [facility] Comment on above: This test was perfor med using the TPSA assay method [facility] the[facility]. Values obtained with differentassay methods cannot be used interchangably.When changing PSA assays in the course of monitoring apatient, additional sequential testing should be carriedout to confirm baseline values. Thyroid Stimulating Hormone (TSH) 0.04 uIU/mL 0.358-3.74 [facility] Vitamin D 25-Hydroxy 71.4 ng/mL [facility] Comment on above: Vitamin D 25(OH) Sta tus Range Deficiency <20 ng/mL (50nmol/L) Insufficiency 20 - 30 ng/mL (50 - 75 nmol/L) Sufficiency 30 - 100 ng/mL (75 - 250 nmol/L) Toxicity >100 ng/mL (>250 nmol/L) Serum or plasma cholesterol in HDL measurement (mass/volume)Ordered By: oRyce Ragsdale on 11-17-2022 Cholesterol in HDL [Mass/Vol] 44 mg/dL >40 [facility] Comment on above: The drugs N-Acetylcy steine and Metamizole may falsely depress this assay. Reference Range HDL <40 mg/dL Low HDL Cholesterol HDL >or= 60 mg/dL High HDL Cholesterol Serum or plasma cholesterol in VLDL measurement (mass/volume)Ordered By: Royce Ragsdale on 11-17-2022 Cholesterol in VLDL [Mass/Vol] 29 mg/dL 5-40 [facility] Serum or plasma low density lipoprotein (LDL) cholesterol measurement (mass/volume)Ordered By: Royce Ragsdale on 11-17-2022 Cholesterol in LDL [Mass/Vol] 114 mg/dL 0-130 [facility] Absolute lymphocyte countOrd ered By: Dr. Bob on 08-08-2022 Lymphocytes Auto (Unsp spec) [#/Vol] 2.10 10*3/uL 0.83-4.51 [facility] Basophil percentageOrdered B y: Dr. Bob on 08-08-2022 Basophils/100 WBC (Bld) 0.8 % 0-1 [facility] Bilirubin [Mass/Vol] 0.50 mg/dL 0.20-1.00 [facility] Comment on above: For patients on eltr ombopag therapy, use of Dimension [place] TBIL is not recommended. Chloride [Moles/Vol] 109 mmol/L 98-107 [facility] Eosinophils/100 WBC (Bld) 2.6 % 0-5 [facility] Glucose [Mass/Vol] 102 mg/dL 74-106 [facility] Comment on above: Fasting Glucose resu lt from 100 to 125 mg/dL suggests IMPAIRED HOMEOSTASIS per A.D.A. criteria. Neutrophils (Bld) [#/Vol] 4.5 10*3/uL 2.0-7.7 [facility] Neutrophils/100 WBC (Bld) 60.2 % 47-70 [facility] Potassium [Moles/Vol] 4.1 mmol/L 3.5-5.1 [facility] Protein [Mass/Vol] 7.7 g/dL 6.4-8.2 [facility] Sodium [Moles/Vol] 142 mmol/L 136-145 [facility] WBC (Bld) [#/Vol] 7.4 10*3/uL 4.4-11.0 [facility] Blood erythrocytes count (nu mber/volume)Ordered By: Dr. Bob on 08-08-2022 RBC (Bld) [#/Vol] 5.18 10*6/uL 4.6-6.2 [facility] Blood hemoglobin measurement (mass/volume)Ordered By: Dr. Bob on 08-08-2022 Hemoglobin (Bld) [Mass/Vol] 15.5 g/dL 13.0-16.5 [facility] Blood lymphocytes/100 leukoc ytesOrdered By: Dr. Bob on 08-08-2022 Lymphocytes/100 WBC (Bld) 28.2 % 19-41 [facility] Blood monocytes/100 leukocyt esOrdered By: Dr. Bob on 08-08-2022 Monocytes/100 WBC (Bld) 8.1 % 0-10 [facility] Blood platelet mean volumeOr dered By: Dr. Bob on 08-08-2022 Platelet mean volume (Bld) [Entitic vol] 9.7 fL 6.2-12.0 [facility] Determination of erythrocyte mean corpuscular volume (MCV)Ordered By: Dr. Bob on 08-08-2022 MCV (RBC) [Entitic vol] 89.2 fL 80-94 [facility] Hematocrit Auto (Bld) [Volum e fraction]Ordered By: Dr. Bob on 08-08-2022 Hematocrit (Bld) [Volume fraction] 46.2 % 40-54 [facility] Laboratory - Chemistry and C hemistry - challengeOrdered By: Dr. Bob on 08-08-2022 ALP [Catalytic activity/Vol] 65 U/L 45-117 [facility] ALT [Catalytic activity/Vol] 33 U/L 16-61 [facility] CO2 [Moles/Vol] 27.0 mmol/L 21.0-32.0 [facility] Globulin (S) [Mass/Vol] 3.7 g/dL 2.2-4.2 [facility] Urea nitrogen/Creatinine [Mass ratio] 15.3 mg/mg 10-20 [facility] Laboratory - Hematology and Cell countsOrdered By: Dr. Bob on 08-08-2022 Erythrocyte distribution width (RBC) [Entitic vol] 40.8 fL 35.1-43.9 [facility] Erythrocyte distribution width (RBC) [Ratio] 12.4 % 11.6-14.6 [facility] Immature granulocytes/100 WBC (Bld) 0.100 % 0.0-0.9 [facility] Comment on above: IG% - Immature Granu locytes (promyelocytes, myelocytes and metamyelocytes) > 1% indicates that a LEFT SHIFT is Present. MCH (RBC) [Entitic mass] 29.9 pg 27.0-32.0 [facility] Nucleated RBC/100 WBC (Bld) [Ratio] 0 % 0-5 [facility] MCHC Auto (RBC) [Mass/Vol]Or dered By: Dr. Bob on 08-08-2022 MCHC (RBC) [Mass/Vol] 33.5 g/dL 32-36 [facility] No Panel InformationOrdered By: Dr. Bob on 08-08-2022 Estimated GFR (MDRD) Amer 77 mL/min >60 [facility] Comment on above: GFR Calc Estimated GFR (MDRD) Non-Af Amer 63 mL/min >60 [facility] Comment on above: Non- GFR Calc Platelets bldOrdered By: Dr. Bob on 08-08-2022 Platelets (Bld) [#/Vol] 302 10*3/uL 150-450 [facility] Serum or plasma albumin april urement (mass/volume)Ordered By: Dr. Bob on 08-08-2022 Albumin [Mass/Vol] 4.0 g/dL 3.2-5.0 [facility] Serum or plasma albumin/glob ulin mass ratioOrdered By: Dr. Bob on 08-08-2022 Albumin/Globulin [Mass ratio] 1.1 {ratio} 0.9-2.4 [facility] Serum or plasma calcium april urement (mass/volume)Ordered By: Dr. Bob on 08-08-2022 Calcium [Mass/Vol] 9.1 mg/dL 8.5-10.1 [facility] Serum or plasma creatinine m easurement (mass/volume)Ordered By: Dr. Bob on 08-08-2022 Creatinine [Mass/Vol] 1.24 mg/dL 0.70-1.30 [facility] Comment on above: The validity of the calculated GFR & GFRAA in patients over 70 years has not been determined. Clinical correlation is essential. Serum or plasma urea nitroge n measurement (mass/volume)Ordered By: Dr. Bob on 08-08-2022 Urea nitrogen [Mass/Vol] 19 mg/dL 7-18 [facility] Thin prep Papanicolaou smear with manual screeningOrdered By: Dr. Bob on 08-08-2022 Thin prep Papanicolaou smear with manual screening 23 U/L 15-37 [facility] Thin prep Papanicolaou smear with manual screening 6 5-15 [facility] Absolute lymphocyte counton 02-14-2022 Lymphocytes Auto (Unsp spec) [#/Vol] 2.19 10*3/uL 0.83-4.51 [facility] Work Phone: Basophil percentageon 2021 Basophils/100 WBC (Bld) 0.9 % 0-1 [facility] Work Phone: Bilirubin [Mass/Vol] 0.50 mg/dL 0.20-1.00 [facility] Work Phone: Comment on above: For patients on eltr ombopag therapy, use of Dimension [place] TBIL is not recommended. Chloride [Moles/Vol] 105 mmol/L 98-107 [facility] Work Phone: Eosinophils/100 WBC (Bld) 4.5 % 0-5 [facility] Work Phone: Glucose [Mass/Vol] 100 mg/dL 74-106 [facility] Work Phone: Comment on above: Fasting Glucose resu lt from 100 to 125 mg/dL suggests IMPAIRED HOMEOSTASIS per A.D.A. criteria. Neutrophils (Bld) [#/Vol] 3.5 10*3/uL 2.0-7.7 [facility] Work Phone: Neutrophils/100 WBC (Bld) 52.5 % 47-70 [facility] Work Phone: Potassium [Moles/Vol] 4.3 mmol/L 3.5-5.1 [facility] Work Phone: Protein [Mass/Vol] 7.6 g/dL 6.4-8.2 [facility] Work Phone: Sodium [Moles/Vol] 138 mmol/L 136-145 [facility] Work Phone: WBC (Bld) [#/Vol] 6.7 10*3/uL 4.4-11.0 [facility] Work Phone: Blood erythrocytes count (nu mber/volume)on 02-14-2022 RBC (Bld) [#/Vol] 5.27 10*6/uL 4.6-6.2 [facility] Work Phone: Blood hemoglobin measurement (mass/volume)on 02-14-2022 Hemoglobin (Bld) [Mass/Vol] 16.1 g/dL 13.0-16.5 [facility] Work Phone: Blood lymphocytes/100 leukoc yteson 02-14-2022 Lymphocytes/100 WBC (Bld) 32.7 % 19-41 [facility] Work Phone: Blood monocytes/100 leukocyt eson 02-14-2022 Monocytes/100 WBC (Bld) 9.1 % 0-10 [facility] Work Phone: Blood platelet mean volumeon 02-14-2022 Platelet mean volume (Bld) [Entitic vol] 9.6 fL 6.2-12.0 [facility] Work Phone: Determination of erythrocyte mean corpuscular volume (MCV)on 02-14-2022 MCV (RBC) [Entitic vol] 89.9 fL 80-94 [facility] Work Phone: [phone] Hematocrit Auto (Bld) [Volum e fraction]on 02-14-2022 Hematocrit (Bld) [Volume fraction] 47.4 % 40-54 [facility] Work Phone: [phone] Laboratory - Chemistry and C hemistry - challengeon 02-14-2022 ALP [Catalytic activity/Vol] 64 U/L 45-117 [facility] Work Phone: [phone] ALT [Catalytic activity/Vol] 36 U/L 16-61 [facility] Work Phone: [phone] CO2 [Moles/Vol] 25.0 mmol/L 21.0-32.0 [facility] Work Phone: [phone] Globulin (S) [Mass/Vol] 3.3 g/dL 2.2-4.2 [facility] Work Phone: [phone] Urea nitrogen/Creatinine [Mass ratio] 15.2 mg/mg 10-20 [facility] Work Phone: [phone] Laboratory - Hematology and Cell countson 02-14-2022 Erythrocyte distribution width (RBC) [Entitic vol] 40.7 fL 35.1-43.9 [facility] Work Phone: [phone] Erythrocyte distribution width (RBC) [Ratio] 12.3 % 11.6-14.6 [facility] Work Phone: [phone] Immature granulocytes/100 WBC (Bld) 0.300 % 0.0-0.9 [facility] Work Phone: [phone] Comment on above: IG% - Immature Granu locytes (promyelocytes, myelocytes and metamyelocytes) > 1% indicates that a LEFT SHIFT is Present. MCH (RBC) [Entitic mass] 30.6 pg 27.0-32.0 [facility] Work Phone: [phone] Nucleated RBC/100 WBC (Bld) [Ratio] 0 % 0-5 [facility] Work Phone: [phone] MCHC Auto (RBC) [Mass/Vol]on 02-14-2022 MCHC (RBC) [Mass/Vol] 34.0 g/dL 32-36 [facility] Work Phone: No Panel Informationon 02-14 Estimated GFR (MDRD) Amer 100 mL/min >60 [facility] Work Phone: Comment on above: GFR Calc Estimated GFR (MDRD) Non-Af Amer 83 mL/min >60 [facility] Work Phone: Comment on above: Non- GFR Calc Platelets bldon 02-14-2022 Platelets (Bld) [#/Vol] 295 10*3/uL 150-450 [facility] Work Phone: Serum or plasma albumin april urement (mass/volume)on 02-14-2022 Albumin [Mass/Vol] 4.3 g/dL 3.2-5.0 [facility] Work Phone: Serum or plasma albumin/glob ulin mass ratioon 02-14-2022 Albumin/Globulin [Mass ratio] 1.3 {ratio} 0.9-2.4 [facility] Work Phone: Serum or plasma calcium april urement (mass/volume)on 02-14-2022 Calcium [Mass/Vol] 9.4 mg/dL 8.5-10.1 [facility] Work Phone: Serum or plasma creatinine m easurement (mass/volume)on 02-14-2022 Creatinine [Mass/Vol] 0.98 mg/dL 0.70-1.30 [facility] Work Phone: Comment on above: The validity of the calculated GFR & GFRAA in patients over 70 years has not been determined. Clinical correlation is essential. Serum or plasma urea nitroge n measurement (mass/volume)on 02-14-2022 Urea nitrogen [Mass/Vol] 15 mg/dL 7-18 [facility] Work Phone: Thin prep Papanicolaou smear with manual screeningon 02-14-2022 Thin prep Papanicolaou smear with manual screening 23 U/L 15-37 [facility] Work Phone: Thin prep Papanicolaou smear with manual screening 8 5-15 [facility] Work Phone: [phone] Laboratory - Chemistry and C hemistry - challengeon 10-08-2021 Free T4 [Mass/Vol] 1.31 ng/dL 0.76-1.46 [facility] Work Phone: No Panel Informationon 10-08 Thyroid Stimulating Hormone (TSH) 0.95 uIU/mL 0.358-3.74 [facility] Work Phone: Absolute lymphocyte counton 08-07-2021 Lymphocytes Auto (Unsp spec) [#/Vol] 2.44 10*3/uL 0.83-4.51 [facility] Work Phone: Basophil percentageon 2021 Basophils/100 WBC (Bld) 0.9 % 0-1 [facility] Work Phone: [phone] Bilirubin [Mass/Vol] 0.50 mg/dL 0.20-1.00 [facility] Work Phone: Comment on above: For patients on eltr ombopag therapy, use of Dimension [place] TBIL is not recommended. Chloride [Moles/Vol] 105 mmol/L 98-107 [facility] Work Phone: Cholesterol [Mass/Vol] 200 mg/dL <200 [facility] Work Phone: Comment on above: <200 mg/dL Desirable 200-240 mg/dL Borderline >240 mg/dL High Risk Eosinophils/100 WBC (Bld) 2.9 % 0-5 [facility] Work Phone: Glucose [Mass/Vol] 88 mg/dL 74-106 [facility] Work Phone: Neutrophils (Bld) [#/Vol] 3.6 10*3/uL 2.0-7.7 [facility] Work Phone: Neutrophils/100 WBC (Bld) 52.6 % 47-70 [facility] Work Phone: [phone] Potassium [Moles/Vol] 3.7 mmol/L 3.5-5.1 [facility] Work Phone: Protein [Mass/Vol] 7.4 g/dL 6.4-8.2 [facility] Work Phone: Sodium [Moles/Vol] 138 mmol/L 136-145 [facility] Work Phone: Testosterone [Mass/Vol] 354.84 ng/dL [facility] Work Phone: Comment on above: CENTRAL 90% REFERENC E RANGES MALE AGE <50 197.44 - 669.58 ng/dL MALE AGE > or = 50 187.72 - 684.19 ng/dL FEMALE AGE <50 8.38 - 35.01 ng/dL FEMALE AGE > or = 50 <7.00 - 35.92 ng/dL Effective as of 10/02/20 Triglyceride [Mass/Vol] 137 mg/dL <199 [facility] Work Phone: Comment on above: The drugs N-Acetylcy steine and Metamizole may falsely depress this assay.Serum Triglycerides Reference Interval Normal <150 mg/dL Borderline high 150 - 199 mg/dL High 200 - 499 mg/dL Very High > or = 500 mg/dL WBC (Bld) [#/Vol] 6.9 10*3/uL 4.4-11.0 [facility] Work Phone: [phone] Blood erythrocytes count (nu mber/volume)on 08-07-2021 RBC (Bld) [#/Vol] 4.92 10*6/uL 4.6-6.2 [facility] Work Phone: [phone] Blood hemoglobin measurement (mass/volume)on 08-07-2021 Hemoglobin (Bld) [Mass/Vol] 15.0 g/dL 13.0-16.5 [facility] Work Phone: [phone] Blood lymphocytes/100 leukoc yteson 08-07-2021 Lymphocytes/100 WBC (Bld) 35.4 % 19-41 [facility] Work Phone: [phone] Blood monocytes/100 leukocyt eson 08-07-2021 Monocytes/100 WBC (Bld) 8.1 % 0-10 [facility] Work Phone: [phone] Blood platelet mean volumeon 08-07-2021 Platelet mean volume (Bld) [Entitic vol] 9.2 fL 6.2-12.0 [facility] Work Phone: [phone] Determination of erythrocyte mean corpuscular volume (MCV)on 08-07-2021 MCV (RBC) [Entitic vol] 89.8 fL 80-94 [facility] Work Phone: [phone] Hematocrit Auto (Bld) [Volum e fraction]on 08-07-2021 Hematocrit (Bld) [Volume fraction] 44.2 % 40-54 [facility] Work Phone: [phone] Laboratory - Chemistry and C hemistry - challengeon 08-07-2021 ALP [Catalytic activity/Vol] 56 U/L 45-117 [facility] Work Phone: [phone] ALT [Catalytic activity/Vol] 33 U/L 16-61 [facility] Work Phone: [phone] CO2 [Moles/Vol] 26.0 mmol/L 21.0-32.0 [facility] Work Phone: [phone] Globulin (S) [Mass/Vol] 3.5 g/dL 2.2-4.2 [facility] Work Phone: [phone] Urea nitrogen/Creatinine [Mass ratio] 16.2 mg/mg 10-20 [facility] Work Phone: [phone] Laboratory - Hematology and Cell countson 08-07-2021 Erythrocyte distribution width (RBC) [Entitic vol] 41.7 fL 35.1-43.9 [facility] Work Phone: [phone] Erythrocyte distribution width (RBC) [Ratio] 12.7 % 11.6-14.6 [facility] Work Phone: [phone] Immature granulocytes/100 WBC (Bld) 0.100 % 0.0-0.9 [facility] Work Phone: [phone] Comment on above: IG% - Immature Granu locytes (promyelocytes, myelocytes and metamyelocytes) > 1% indicates that a LEFT SHIFT is Present. MCH (RBC) [Entitic mass] 30.5 pg 27.0-32.0 [facility] Work Phone: [phone] Nucleated RBC/100 WBC (Bld) [Ratio] 0 % 0-5 [facility] Work Phone: [phone] MCHC Auto (RBC) [Mass/Vol]on 08-07-2021 MCHC (RBC) [Mass/Vol] 33.9 g/dL 32-36 [facility] Work Phone: [phone] Panel Informationon 08-07 Estimated GFR (MDRD) Amer 82 mL/min >60 [facility] Work Phone: [phone] Comment on above: GFR Calc Estimated GFR (MDRD) Non-Af Amer 68 mL/min >60 [facility] Work Phone: [phone] Comment on above: Non- GFR Calc Prostate Specific Antigen Screen 1.80 ng/mL 0.00-4.00 [facility] Work Phone: [phone] Comment on above: This test was perfor med using the TPSA assay method for [employer] system. Values obtained with differentassay methods cannot be used interchangably.When changing PSA assays in the course of monitoring apatient, additional sequential testing should be carriedout to confirm baseline values. Thyroid Stimulating Hormone (TSH) 13.60 uIU/mL 0.358-3.74 [facility] Work Phone: [phone] Vitamin D 25-Hydroxy 55.4 ng/mL [facility] Work Phone: [phone] Comment on above: Vitamin D 25(OH) Sta tus Range Deficiency <20 ng/mL (50nmol/L) Insufficiency 20 - 30 ng/mL (50 - 75 nmol/L) Sufficiency 30 - 100 ng/mL (75 - 250 nmol/L) Toxicity >100 ng/mL (>250 nmol/L) Platelets bldon 08-07-2021 Platelets (Bld) [#/Vol] 255 10*3/uL 150-450 [facility] Work Phone: [phone] Serum or plasma albumin april urement (mass/volume)on 08-07-2021 Albumin [Mass/Vol] 3.9 g/dL 3.2-5.0 [facility] Work Phone: Serum or plasma albumin/glob ulin mass ratioon 08-07-2021 Albumin/Globulin [Mass ratio] 1.1 {ratio} 0.9-2.4 [facility] Work Phone: Serum or plasma calcium april urement (mass/volume)on 08-07-2021 Calcium [Mass/Vol] 8.6 mg/dL 8.5-10.1 [facility] Work Phone: Serum or plasma cholesterol in HDL measurement (mass/volume)on 08-07-2021 Cholesterol in HDL [Mass/Vol] 43 mg/dL >40 [facility] Work Phone: Comment on above: The drugs N-Acetylcy steine and Metamizole may falsely depress this assay. Reference Range HDL <40 mg/dL Low HDL Cholesterol HDL >or= 60 mg/dL High HDL Cholesterol Serum or plasma cholesterol in VLDL measurement (mass/volume)on 08-07-2021 Cholesterol in VLDL [Mass/Vol] 27 mg/dL 5-40 [facility] Work Phone: Serum or plasma creatinine m easurement (mass/volume)on 08-07-2021 Creatinine [Mass/Vol] 1.17 mg/dL 0.70-1.30 [facility] Work Phone: Comment on above: The validity of the calculated GFR & GFRAA in patients over 70 years has not been determined. Clinical correlation is essential. Serum or plasma low density lipoprotein (LDL) cholesterol measurement (mass/volume)on 08-07-2021 Cholesterol in LDL [Mass/Vol] 130 mg/dL 0-130 [facility] Work Phone: Serum or plasma urea nitroge n measurement (mass/volume)on 08-07-2021 Urea nitrogen [Mass/Vol] 19 mg/dL 7-18 [facility] Work Phone: Thin prep Papanicolaou smear with manual screeningon 08-07-2021 Thin prep Papanicolaou smear with manual screening 24 U/L 15-37 [facility] Work Phone: Thin prep Papanicolaou smear with manual screening 7 5-15 [facility] Work Phone: Vital Signs Date Time Vital Sign Value Performing Clinician Ren méndez 07-12-2019 15:52-0400 BMI (Body Mass Index) 29.16 kg/m2 [facility] 07-12-2019 15:52-0400 Body weight 97.52 kg [facility] 07-12-2019 15:52-0400 BP Diastolic 91 mm[Hg] [facility] 07-12-2019 15:52-0400 BP Systolic 141 mm[Hg] [facility] 07-12-2019 15:52-0400 Pulse (Heart Rate) 77 /min [facility] 07-20-2018 16:01-0400 BMI (Body Mass Index) 29.7 kg/m2 [facility] 07-20-2018 16:01-0400 BP Diastolic 79 mm[Hg] [facility] 07-20-2018 16:01-0400 BP Systolic 125 mm[Hg] [facility] 07-20-2018 16:01-0400 Pulse (Heart Rate) 81 /min [facility] 07-20-2018 16:01-0400 Weight 99.34 kg [facility] 07-23-2017 15:48-0400 BMI (Body Mass Index) 29.21 kg/m2 [facility] 07-23-2017 15:48-0400 BP Diastolic 83 mm[Hg] [facility] 07-23-2017 15:48-0400 BP Systolic 134 mm[Hg] [facility] 07-23-2017 15:48-0400 Pulse (Heart Rate) 67 /min [facility] 07-23-2017 15:48-0400 Weight 97.7 kg [facility] Encounters Encounter Date Encounter Type Care Provider Facility Start: 09-24-2024 End: 09-24-2024 Emergency department patient visit LENA LUQUE [facility] Start: 07-04-2024 End: 07-04-2024 ambulatory Saturnino Ragsdale Facility:[facility] Start: 01-07-2024 End: 01-07-2024 ambulatory [facility] Facility:[facility] Start: 07-16-2023 End: 07-16-2023 ambulatory [facility] Facility:[facility] Start: 01-27-2023 End: 01-27-2023 ambulatory [facility] Work Phone: Start: 01-27-2023 End: 01-27-[address] [facility] Work Phone: Start: 11-17-2022 End: 11-17-2022 ambulatory [facility] Work Phone: Start: 11-17-2022 End: 11-17-[address] [facility] Work Phone: Start: 08-08-2022 End: 08-08-2022 ambulatory [facility] Work Phone: Start: 08-08-2022 End: 08-08-[address] [facility] Start: 02-14-2022 End: 02-14-2022 ambulatory [facility] Work Phone: Start: 02-14-2022 End: 02-14-[address] [facility] Start: 10-08-2021 End: 10-08-2021 Patient encounter procedure [facility] Start: 08-07-2021 End: 08-07-[address] [facility] Start: 07-12-2019 End: 07-12-2019 Patient encounter procedure BRANDI MODI XOCHITLTHERESAADOLFO [facility] Start: 07-12-2019 End: 07-12-2019 Office outpatient visit 15 minutes Brandi Crane Work Phone: [facility] Comment on above: Rheumatoid arthritis involving multiple sites with positive rheumatoid factor (HCC) (Primary Dx) Start: 04-18-2019 Patient encounter procedure BRANDI MODI PEARL [facility] Start: 12-22-2018 Patient encounter procedure BRANDI MODI PEARL [facility] Start: 07-20-2018 End: 07-20-2018 Office outpatient visit 15 minutes Brandi Crane Work Phone: [facility] Comment on above: Rheumatoid arthritis involving multiple sites, unspecified rheumatoid factor presence (HCC) (Primary Dx) Start: 03-25-2018 End: 03-25-2018 Documentation procedure Russell Parikh [facility] Start: 07-24-2017 Ambulatory Russell Parikh [facility] Start: 07-23-2017 End: 07-23-2017 Office/outpatient visit, est, level 3 Brandi Crane Work Phone: [facility] Start: 06-26-2017 Ambulatory [facility] Plan of Treatment Date Care Activity Detail Author Start: 11-08-2019 Influenza vaccinatio n given Sequential Influenza Vaccine (Season Ended) [facility] Start: 07-12-2019 End: 07-12-2019 Office Visit 07/12/2019 Office Visit Orthopedic Surgery Brandi Crane MD [address] [place] [address] [phone] [facility] Start: 11-07-2018 Influenza vaccinatio n given SEQUENTIAL INFLUENZA VACCINE (Season Ended) [facility] Start: 07-20-2018 End: 07-20-2018 Ambulatory 07/20/2018 Office Visit Orthopedic Surgery Brandi Crane MD [address] [place] [address] [phone] [facility] Start: 11-07-2017 Influenza vaccination SEQUENTI AL INFLUENZA VACCINE (Season Ended) [facility] Start: 11-07-2017 Influenza vaccinatio n given SEQUENTIAL INFLUENZA VACCINE (#1) [facility] Start: 07-23-2017 End: 07-23-2017 Ambulatory 07/23/2017 Office Visit Orthopedic Surgery Brandi Crane MD [address] [place] [address] [phone] [facility] Start: 11-07-2016 Influenza vaccination TASHAENTI AL INFLUENZA VACCINE (#1) [facility] Start: 2012 Administration of he rpes zoster vaccine Zoster Vaccines (1 of 2) [facility] Start: 1965 History and physical examination, annual for health maintenance Wellness Visit [facility] Start: 1960 Hepatitis C antibody , confirmatory test HEPATITIS C SCREENING [facility] Start: 1962 Prostate specific antigen measurement PSA Level [facility] Start: 1960 Protein mass conc [facility] Start: 1962 Screening for malign ant neoplasm of colon Colorectal Cancer Screening: Colonoscopy [facility] Start: 1960 HEPATITIS C SCREENING HEPATITIS C SC REENING [facility] Start: 1962 Screening colonoscopy [facility]OSCOPY [facility] Start: 1962 End: 1962 Tetanus vaccination [facility] End: 07-21-2019 Complete blood count with white cell differential, manual CBC and Differential Routine Rheumatoid arthritis involving multiple sites, unspecified rheumatoid factor presence (HCC) 1 Occurrences starting 07/20/2018 until 07/21/2019 [facility] Comment on above: 1 Occurrences starti ng 07/20/2018 until 07/21/2019 End: 07-21-2019 CRP mass conc CRP, Inflammation Routine Rheumatoid arthritis involving multiple sites, unspecified rheumatoid factor presence (HCC) 1 Occurrences starting 07/20/2018 until 07/21/2019 [facility] Comment on above: 1 Occurrences starti ng 07/20/2018 until 07/21/2019 End: 07-21-2019 ESR Velocity (Bld) Sedimentation Rate Routine Rheumatoid arthritis involving multiple sites, unspecified rheumatoid factor presence (HCC) 1 Occurrences starting 07/20/2018 until 07/21/2019 [facility] Comment on above: 1 Occurrences starti ng 07/20/2018 until 07/21/2019 Payers Date Payer Category Payer Self-pay [id number] 2023 Unknown [id number] 2014 Private Health Insurance FARZANA LIMON CHOICE FUND-ANY CHOICE FUND xxxxxxxxxxx 2014-Present xxxxxxxxxxx [id number] 2014 Private Health Insurance [id number] 1960 Unknown [id number] 1962 Unknown [id number] 1962 Unknown [id number] 1960 Unknown [id number] Unknown [id number] Unknown [id number] Unknown [id number] Social History Date Type Detail Facility Start: 07-23-2017 End: 07-12-2019 Tobacco smoking status NHIS Never smoker [facility] Sex Assigned At Not on file [facility] Start: 01-11-2015 Alcohol Comment 2 beers each day [facility] Start: 07-12-2019 Alcohol intake Current drinke r of alcohol (finding) [facility] Start: 1960 Sex Assigned At Male [facility] Evaluation note Note Date & Type Note Facility Evaluation note No assessment information availa [facility] Work Phone: Assessments Diagnosis Seropositive rheumatoid arth [...] Crane MD - 07/20/2018 4:38 PM EDT [facility]. Name: Juan M Mahogany Corina Date:07/20/18 [id number] :1960 Allergies: Penicillins Medications: Current Outpatient Medications: [...] this chart may have been created with TRUE [employer] voice recognition software. Occasional wrong-word or sound-like substitutions may have occurred due to inherent limitations of the voice recognition software. Please read the chart carefully and recognize, using context, where the substitutions have occurred. Brandi Crane MD documented in this encounter* Brandi Crane MD - 07/12/2019 4:28 PM EDT [facility]. Name: Juan M Adkins Date:07/12/19 [id number] :1960 Allergies: Penicillins Medications: Current Outpatient Medications: [...] 3. I discussed with him my upcoming group home on July 28. He should contact his PCP for either management of his RA or referral to another global technical writer. 4. More than 50% of the 15-minute office time today was spent counseling. The [employer] voice recognition system was used to create this record. Typographical and other errors may be present. The reader is advised to recognize these and interpret them correctly. Brandi Crane MD documented in this encounter Advance Directives No Advanced Directives Records FoundDocuments on File Type Date Recorded Patient Therapy Director Expl anation Advance Directives and Living Will [...] section and content) DATE CREATED AUTHOR 07/23/2019 [facility] DATE CREATED AUTHOR AUTHOR'S ORGANIZ ATION 07/11/2024 [facility] DATE CREATED AUTHOR AUTHOR'S ORGANIZ ATION [...] MD Primary Care Provider Activ e Dr. Faith Bob MD Attending Provider, Referring Provider Active [...] BE BASED ON THE PRIMARY CLINICAL RECORDS. [employer] [facility]. provides no warranty or guarantee of the accuracy or completeness of information in this document.
[2024-12-22 15:08] LABS: Hematocrit 45.8 % (40-54); Hemoglobin 15.6 g/dL (13.0-16.5); Immature Granulocytes Count 0.020 X10^3/uL (0.0-0.0); Mean Corp Hgb Conc 34.1 g/dL (32-36); Mean Corpuscular Volume 89.1 fL (80-94); Mean Platelet Vol. 9.9 fl (6.2-12.0); NRBC Flagged by Analyzer 0 % (0-5); Platelet Count 279 K/mm3 (150-450); RBC Distribution Width CV 12.2 % (11.6-14.6); RBC Distribution Width SD 40.0 fl (35.1-43.9); Red Blood Count 5.14 M/mm3 (4.6-6.2); White Blood Count 7.3 K/mm3 (4.4-11.0)
[2024-12-22 15:49] LABS: AST(SGOT) 20 U/L (<=37); Alanine Aminotransfer ALT/SGPT 18 U/L (<=46); Albumin, Serum 4.2 g/dL (3.4-4.8); Alkaline Phosphatase 61 U/L (40-129); Anion Gap 12 (5-15); BUN 15 mg/dL (4-19); BUN/Creat Ratio 14.5 RATIO (10-20); Calcium,Total 9.5 mg/dL (7.6-11.0); Carbon Dioxide 23.6 mmol/L (21.0-32.0); Chloride 105 mmol/L (98-108); Globulin 2.9 g/dL (2.2-4.2); Glucose 101 mg/dL (70-99); Potassium 4.0 mmol/L (3.3-5.1)
== END | disposition home or self-care (01) ==
LOC: MTLAB 13:48
PROVIDERS: PCP Family Medicine; Referring Provider Internal Medicine Rheumatology; Visit Provider Internal Medicine Rheumatology
DX: M05.70 Rheumatoid arthritis with rheumatoid factor of unspecified site without organ or systems involvement (principal); R76.89 Other specified abnormal immunological findings in serum; Z79.899 Other long term (current) drug therapy
CPT/HCPCS: 36415; 80053; 85025

== ENCOUNTER → 2025-02-15 | Outpatient (CLI) | payer OTHER, SELFPAY ==
--- OUTSIDE RECORDS SUMMARY | 2025-02-15 06:41 | XMS RPT_ITS | CCD ---
Author Organization [facility] Care Team Providers Care Vp Respiratory Name Role Phone Saturnino Ragsdale Unavailable [phone] BRANDI CRANE LY Attending Unavailab SATURNINO Glass Primary Care Unavail able BRANDI CRANE LY Attending Unavailab SATURNINO Glass Primary Care Unavail able PEARL, BRANDI LY Attending Unavailab le REFERRING, SELF Referring Unavailable SATURNINO RAGSDALE Primary Care Unavail able LENA LUQUE Attending Unavailable JN, SATURNINO VELAZQUEZ Primary Care Unavail able Saturnino Ragsdale Primary Care Unavailable Faith Bob Consulting Unavailable Saturnino Ragsdale Referring Unavailable Saturnino Ragsdale Attending Unavailable Jn, [facility] Unavailable Faith Bob Referring Unavailable Faith Bob Attending Unavailable Allergies Allergy Classification Reported Allergen(s) Allergy Type Date of Onset Reaction(s) Facility (8 sources) Penicillins; Translations: [Unknown] Propensity to adverse reactions to drug [facility] Medications Current Medications Medication Drug Class(es) [...] 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] Onset: 01-05-2025 01-11-2015 Chronic Thyroid disorders (6 sources) Disorder of thyroid gland; Translations: [Thyroid disease] 01-11-2015 Episodic Results Test Name Value Interpretation Reference Range Facility CBC W/Diff, Automatedon 12-07 Absolute Lymph 2.25 X10 3/uL Normal 0.83-4.51 [facility] Comment on above: Performed By: #### L 500.4050, L100.0100 #### [facility] [address] [place], [address] Absolute Neut 4.2 X10 3/uL Normal 2.0-7.7 [facility] Comment on above: Performed By: #### L 500.4050, L100.0100 #### [facility] [address] [place], [address] Basophils/100 WBC (Bld) 1.0 % Normal 0-1 [facility] Comment on above: Performed By: #### L 500.4050, L100.0100 #### [facility] [address] [place], [address] Eosinophils/100 WBC (Bld) 3.0 % Normal 0-5 [facility] Comment on above: Performed By: #### L 500.4050, L100.0100 #### [facility] [address] [place], [address] Erythrocyte distribution width (RBC) [Ratio] 12.2 % Normal 11.6-14.6 [facility] Comment on above: Performed By: #### L 500.4050, L100.0100 #### [facility] [address] [place], [address] Hematocrit (Bld) [Volume fraction] 45.8 % Normal 40-54 [facility] Comment on above: Performed By: #### L 500.4050, L100.0100 #### [facility] [address], [address] Hemoglobin (Bld) [Mass/Vol] 15.6 g/dL Normal 13.0-16.5 [facility] Comment on above: Performed By: #### L 500.4050, L100.0100 #### [facility] [address] [place], [address] IG% 0.300 Normal 0.0-0.9 [facility] Comment on above: Result Comment: IG% - Immature Granulocytes (promyelocytes, myelocytes and metamyelocytes) > 1% indicates that a LEFT SHIFT is Present. Performed By: #### L 500.4050, L100.0100 #### [facility] [address] [place], [address] Lymphocytes/100 WBC (Bld) 30.7 % Normal 19-41 [facility] Comment on above: Performed By: #### L 500.4050, L100.0100 #### [facility] [address] [place], [address] MCH (RBC) [Entitic mass] 30.4 pg Normal 27.0-32.0 [facility] Comment on above: Performed By: #### L 500.4050, L100.0100 #### [facility] [address] [place], [address] MCHC (RBC) [Mass/Vol] 34.1 g/dL Normal 32-36 [facility] Comment on above: Performed By: #### L 500.4050, L100.0100 #### [facility] [address] [place], [address] MCV (RBC) [Entitic vol] 89.1 fL Normal 80-94 [facility] Comment on above: Performed By: #### L 500.4050, L100.0100 #### [facility] [address] [place], [address] Monocytes/100 WBC (Bld) 7.9 % Normal 0-10 [facility] Comment on above: Performed By: #### L 500.4050, L100.0100 #### [facility] [address] [place], [address] Neutrophils/100 WBC (Bld) 57.1 % Normal 47-70 [facility] Comment on above: Performed By: #### L 500.4050, L100.0100 #### [facility] [address] [place], [address] Nucleated RBC (Bld) [#/Vol] 0 10*3/uL Normal 0-5 [facility] Comment on above: Performed By: #### L 500.4050, L100.0100 #### [facility] [address] [place], [address] Platelet mean volume (Bld) [Entitic vol] 9.9 fL Normal 6.2-12.0 [facility] Comment on above: Performed By: #### L 500.4050, L100.0100 #### [facility] [address] [place], [address] Platelets (Bld) [#/Vol] 279 10*3/uL Normal 150-450 [facility] Comment on above: Performed By: #### L 500.4050, L100.0100 #### [facility] [address] [place], [address] RBC (Bld) [#/Vol] 5.14 10*6/uL Normal 4.6-6.2 [facility] Comment on above: Performed By: #### L 500.4050, L100.0100 #### [facility] [address] [place], [address] RDW SD 40.0 fl Normal 35.1-43.9 [facility] Comment on above: Performed By: #### L 500.4050, L100.0100 #### [facility] [address] [place], [address] WBC (Bld) [#/Vol] 7.3 10*3/uL Normal 4.4-11.0 [facility] Comment on above: Performed By: #### L 500.4050, L100.0100 #### [facility] [address] [place], [address] Comprehensive Metabolic Prof [facility] 12-22-2024 Albumin [Mass/Vol] 4.2 g/dL Normal 3.4-4.8 [facility] Comment on above: Performed By: #### L 500.4050, L100.0100 #### [facility] [address] [place], [address] Albumin/Globulin [Mass ratio] 1.4 {ratio} Normal 0.9-2.4 [facility] Comment on above: Performed By: #### L 500.4050, L100.0100 #### [facility] [address] [place], [address] ALK PHOS 61 U/L Normal 40-129 [facility] Comment on above: Performed By: #### L 500.4050, L100.0100 #### [facility] [address] [place], [address] ALT [Catalytic activity/Vol] 18 U/L Normal <=46 [facility] Comment on above: Performed By: #### L 500.4050, L100.0100 #### [facility] [address] [place], [address] AST [Catalytic activity/Vol] 20 U/L Normal <=37 [facility] Comment on above: Performed By: #### L 500.4050, L100.0100 #### [facility] [address] [place], [address] Bilirubin [Mass/Vol] 0.42 mg/dL Normal 0.00-1.30 [facility] Comment on above: Performed By: #### L 500.4050, L100.0100 #### [facility] [address] [place], [address] BUN/CRE 14.5 RATIO Normal 10-20 [facility] Comment on above: Performed By: #### L 500.4050, L100.0100 #### [facility] [address] [place], [address] Calcium [Mass/Vol] 9.5 mg/dL Normal 7.6-11.0 [facility] Comment on above: Performed By: #### L 500.4050, L100.0100 #### [facility] [address] [place], [address] Chloride [Moles/Vol] 105 mmol/L Normal 98-108 [facility] Comment on above: Performed By: #### L 500.4050, L100.0100 #### [facility] [address] [place], [address] CO2 [Moles/Vol] 23.6 mmol/L Normal 21.0-32.0 [facility] Comment on above: Performed By: #### L 500.4050, L100.0100 #### [facility] [address] [place], [address] Creatinine [Mass/Vol] 1.04 mg/dL Normal 0.70-1.20 [facility] Comment on above: Performed By: #### L 500.4050, L100.0100 #### [facility] [address] [place], [address] GAP 12 Normal 5-15 [facility] Comment on above: Performed By: #### L 500.4050, L100.0100 #### [facility] [address] [place], [address] GFR/1.73 sq M.predicted among non-blacks MDRD (S/P/Bld) [Vol rate/Area] 81 mL/min/{1.73_m2} Normal >60 [facility] Comment on above: Result Comment: mL/m in/1.73m2 CKD-EPI Creatinine Equation (2020) Performed By: #### L 500.4050, L100.0100 #### [facility] [address] [place], [address] Globulin (S) [Mass/Vol] 2.9 g/dL Normal 2.2-4.2 [facility] Comment on above: Performed By: #### L 500.4050, L100.0100 #### [facility] [address] [place], [address] Glucose [Mass/Vol] 101 mg/dL High 70-99 [facility] Comment on above: Performed By: #### L 500.4050, L100.0100 #### [facility] [address] [place], [address] Potassium [Moles/Vol] 4.0 mmol/L Normal 3.3-5.1 [facility] Comment on above: Performed By: #### L 500.4050, L100.0100 #### [facility] [address] [place], [address] Sodium [Moles/Vol] 140 mmol/L Normal 133-145 [facility] Comment on above: Performed By: #### L 500.4050, L100.0100 #### [facility] [address] [place], [address] T PROT 7.1 g/dL Normal 5.9-8.4 [facility] Comment on above: Performed By: #### L 500.4050, L100.0100 #### [facility] [address] [place], [address] Urea nitrogen [Mass/Vol] 15 mg/dL Normal 4-19 [facility] Comment on above: Performed By: #### L 500.4050, L100.0100 #### [facility] [address] [place], [address] ED Prov Noteon 09-24-2024 ED Prov Note HPI: 09/24/2024, Time: @MOISE@ Juan M Vides Corina is a 64 [...] are negative. PAST HISTORY Past Medical History: @[facility]@ Past Surgical History: has a past [...] New Prescriptions cephAL (more content not included)... [facility] XR FINGER(S) RIGHT 2+ VIEWSo n 09-24-2024 [...] Sat Sep 24, 2024 12:25:29 PM EDT [facility] Comment on above: Order Comment: Injur y/Trauma or Illness?:Injury/Trauma How long have you had these symptoms (acute/chronic)?:Acute Reason for exam?:thumb injury History of cancer?:. Surgeries, chemotherapy, or radiation?:. Type of Exam?:Initial Mechanism of injury?:Thumb on right hand crushing injury and laceration due to part of a trailer landing on it CBC W/Diff, Automatedon 04-2 Absolute Lymph 2.01 X10 3/uL Normal 0.83-4.51 [facility] Comment on above: Performed By: #### L 500.4050, L100.0100 #### [facility] [address] [place], [address] Absolute Neut 3.3 X10 3/uL Normal 2.0-7.7 [facility] Comment on above: Performed By: #### L 500.4050, L100.0100 #### [facility] [address] [place], [address] Basophils/100 WBC (Bld) 0.8 % Normal 0-1 [facility] Comment on above: Performed By: #### L 500.4050, L100.0100 #### [facility] [address] [place], [address] Eosinophils/100 WBC (Bld) 4.2 % Normal 0-5 [facility] Comment on above: Performed By: #### L 500.4050, L100.0100 #### [facility] [address] [place], [address] Erythrocyte distribution width (RBC) [Ratio] 12.9 % Normal 11.6-14.6 [facility] Comment on above: Performed By: #### L 500.4050, L100.0100 #### [facility] [address] [place], [address] Hematocrit (Bld) [Volume fraction] 47.9 % Normal 40-54 [facility] Comment on above: Performed By: #### L 500.4050, L100.0100 #### [facility] [address] [place], [address] Hemoglobin (Bld) [Mass/Vol] 16.3 g/dL Normal 13.0-16.5 [facility] Comment on above: Performed By: #### L 500.4050, L100.0100 #### [facility] [address] [place], [address] IG% 0.200 Normal 0.0-0.9 [facility] Comment on above: Result Comment: IG% - Immature Granulocytes (promyelocytes, myelocytes and metamyelocytes) > 1% indicates that a LEFT SHIFT is Present. Performed By: #### L 500.4050, L100.0100 #### [facility] [address] [place], [address] Lymphocytes/100 WBC (Bld) 32.6 % Normal 19-41 [facility] Comment on above: Performed By: #### L 500.4050, L100.0100 #### [facility] [address] [place], [address] MCH (RBC) [Entitic mass] 30.0 pg Normal 27.0-32.0 [facility] Comment on above: Performed By: #### L 500.4050, L100.0100 #### [facility] [address] [place], [address] MCHC (RBC) [Mass/Vol] 34.0 g/dL Normal 32-36 [facility] Comment on above: Performed By: #### L 500.4050, L100.0100 #### [facility] [address] [place], [address] MCV (RBC) [Entitic vol] 88.2 fL Normal 80-94 [facility] Comment on above: Performed By: #### L 500.4050, L100.0100 #### [facility] [address] [place], [address] Monocytes/100 WBC (Bld) 9.1 % Normal 0-10 [facility] Comment on above: Performed By: #### L 500.4050, L100.0100 #### [facility] [address] [place], [address] Neutrophils/100 WBC (Bld) 53.1 % Normal 47-70 [facility] Comment on above: Performed By: #### L 500.4050, L100.0100 #### [facility] [address] [place], [address] Nucleated RBC (Bld) [#/Vol] 0 10*3/uL Normal 0-5 [facility] Comment on above: Performed By: #### L 500.4050, L100.0100 #### [facility] [address] [place], [address] Platelet mean volume (Bld) [Entitic vol] 9.8 fL Normal 6.2-12.0 [facility] Comment on above: Performed By: #### L 500.4050, L100.0100 #### [facility] [address] [place], [address] Platelets (Bld) [#/Vol] 294 10*3/uL Normal 150-450 [facility] Comment on above: Performed By: #### L 500.4050, L100.0100 #### [facility] [address] [place], [address] RBC (Bld) [#/Vol] 5.43 10*6/uL Normal 4.6-6.2 [facility] Comment on above: Performed By: #### L 500.4050, L100.0100 #### [facility] [address] [place], [address] RDW SD 41.9 fl Normal 35.1-43.9 [facility] Comment on above: Performed By: #### L 500.4050, L100.0100 #### [facility] [address] [place], [address] WBC (Bld) [#/Vol] 6.2 10*3/uL Normal 4.4-11.0 [facility] Comment on above: Performed By: #### L 500.4050, L100.0100 #### [facility] [address] [place], [address] Comprehensive Metabolic Prof [facility] 07-04-2024 Albumin [Mass/Vol] 4.3 g/dL Normal 3.4-4.8 [facility] Comment on above: Order Comment: Order Date: 01/12/24 Order Info: 3015-05 - TSH Order Info: 3023-09 T4F JN FUENTES GETS RESULTS FOR TSH AND FT4 DR. BOB GETS RESULTS FOR CBCD AND CMP Performed By: #### L 500.4050, L100.0100 #### [facility] [address] [place], [address] Albumin/Globulin [Mass ratio] 1.3 {ratio} Normal 0.9-2.4 [facility] Comment on above: Order Comment: Order Date: 01/12/24 Order Info: 3015-05 - TSH Order Info: 3023-09 T4F JN FUENTES GETS RESULTS FOR TSH AND FT4 DR. BOB GETS RESULTS FOR CBCD AND CMP Performed By: #### L 500.4050, L100.0100 #### [facility] [address] [place], [address] ALK PHOS 75 U/L Normal 40-129 [facility] Comment on above: Order Comment: Order Date: 01/12/24 Order Info: 3015-05 - TSH Order Info: 3023-09 T4F JN FUENTES GETS RESULTS FOR TSH AND FT4 DR. BOB GETS RESULTS FOR CBCD AND CMP Performed By: #### L 500.4050, L100.0100 #### [facility] [address] [place], [address] ALT [Catalytic activity/Vol] 22 U/L Normal <=46 [facility] Comment on above: Order Comment: Order Date: 01/12/24 Order Info: 3015-05 - TSH Order Info: 3023-09 T4F JN FUENTES GETS RESULTS FOR TSH AND FT4 DR. BOB GETS RESULTS FOR CBCD AND CMP Performed By: #### L 500.4050, L100.0100 #### [facility] [address] [place], [address] AST [Catalytic activity/Vol] 22 U/L Normal <=37 [facility] Comment on above: Order Comment: Order Date: 01/12/24 Order Info: 3015-05 - TSH Order Info: 3023-09 T4F JN FUENTES GETS RESULTS FOR TSH AND FT4 DR. BOB GETS RESULTS FOR CBCD AND CMP Performed By: #### L 500.4050, L100.0100 #### [facility] [address] [place], [address] Bilirubin [Mass/Vol] 0.44 mg/dL Normal 0.00-1.30 [facility] Comment on above: Order Comment: Order Date: 01/12/24 Order Info: 3015-05 - TSH Order Info: 3023-09 T4F JN FUENTES GETS RESULTS FOR TSH AND FT4 DR. BOB GETS RESULTS FOR CBCD AND CMP Performed By: #### L 500.4050, L100.0100 #### [facility] [address] [place], [address] BUN/CRE 14.6 RATIO Normal 10-20 [facility] Comment on above: Order Comment: Order Date: 01/12/24 Order Info: 3015-05 - TSH Order Info: 3023-09 T4F JN FUENTES GETS RESULTS FOR TSH AND FT4 DR. BOB GETS RESULTS FOR CBCD AND CMP Performed By: #### L 500.4050, L100.0100 #### [facility] [address] [place], [address] Calcium [Mass/Vol] 9.3 mg/dL Normal 7.6-11.0 [facility] Comment on above: Order Comment: Order Date: 01/12/24 Order Info: 3015-05 - TSH Order Info: 3023-09 T4F JN FUENTES GETS RESULTS FOR TSH AND FT4 DR. BOB GETS RESULTS FOR CBCD AND CMP Performed By: #### L 500.4050, L100.0100 #### [facility] [address] [place], [address] Chloride [Moles/Vol] 104 mmol/L Normal 98-108 [facility] Comment on above: Order Comment: Order Date: 01/12/24 Order Info: 3015-05 - TSH Order Info: 3023-09 T4F JN FUENTES GETS RESULTS FOR TSH AND FT4 DR. BOB GETS RESULTS FOR CBCD AND CMP Performed By: #### L 500.4050, L100.0100 #### [facility] [address] [place], [address] CO2 [Moles/Vol] 21.0 mmol/L Normal 21.0-32.0 [facility] Comment on above: Order Comment: Order Date: 01/12/24 Order Info: 3015-05 - TSH Order Info: 3023-09 T4F JN FUENTES GETS RESULTS FOR TSH AND FT4 DR. BOB GETS RESULTS FOR CBCD AND CMP Performed By: #### L 500.4050, L100.0100 #### [facility] [address] [place], [address] Creatinine [Mass/Vol] 1.09 mg/dL Normal 0.70-1.20 [facility] Comment on above: Order Comment: Order Date: 01/12/24 Order Info: 3015-05 - TSH Order Info: 3023-09 T4F JN FUENTES GETS RESULTS FOR TSH AND FT4 DR. BOB GETS RESULTS FOR CBCD AND CMP Performed By: #### L 500.4050, L100.0100 #### [facility] [address] [place], [address] GAP 12 Normal 5-15 [facility] Comment on above: Order Comment: Order Date: 01/12/24 Order Info: 3015-05 - TSH Order Info: 3023-09 T4F JN FUENTES GETS RESULTS FOR TSH AND FT4 DR. BOB GETS RESULTS FOR CBCD AND CMP Performed By: #### L 500.4050, L100.0100 #### [facility] [address] [place], [address] GFR/1.73 sq M.predicted among non-blacks MDRD (S/P/Bld) [Vol rate/Area] 77 mL/min/{1.73_m2} Normal >60 [facility] Comment on above: Order Comment: Order Date: 01/12/24 Order Info: 3015-05 - TSH Order Info: 3023-09 T4F JN FUENTES GETS RESULTS FOR TSH AND FT4 DR. BOB GETS RESULTS FOR CBCD AND CMP Result Comment: mL/m in/1.73m2 CKD-EPI Creatinine Equation (2020) Performed By: #### L 500.4050, L100.0100 #### [facility] [address] [place], [address] Globulin (S) [Mass/Vol] 3.4 g/dL Normal 2.2-4.2 [facility] Comment on above: Order Comment: Order Date: 01/12/24 Order Info: 3015-05 - TSH Order Info: 3023-09 T4F JN FUENTES GETS RESULTS FOR TSH AND FT4 DR. BOB GETS RESULTS FOR CBCD AND CMP Performed By: #### L 500.4050, L100.0100 #### [facility] [address] [place], [address] Glucose [Mass/Vol] 106 mg/dL High 70-99 [facility] Comment on above: Order Comment: Order Date: 01/12/24 Order Info: 3015-05 - TSH Order Info: 3023-09 T4F JN FUENTES GETS RESULTS FOR TSH AND FT4 DR. BOB GETS RESULTS FOR CBCD AND CMP Performed By: #### L 500.4050, L100.0100 #### [facility] [address] [place], [address] Potassium [Moles/Vol] 4.3 mmol/L Normal 3.3-5.1 [facility] Comment on above: Order Comment: Order Date: 01/12/24 Order Info: 3015-05 - TSH Order Info: 3023-09 - T4F JN FUENTES GETS RESULTS FOR TSH AND FT4 DR. BOB GETS RESULTS FOR CBCD AND CMP Performed By: #### L 500.4050, L100.0100 #### [facility] [address] [place], [address] Sodium [Moles/Vol] 137 mmol/L Normal 133-145 [facility] Comment on above: Order Comment: Order Date: 01/12/24 Order Info: 3 - TSH Order Info: 3023-09 - T4F JN FUENTES GETS RESULTS FOR TSH AND FT4 DR. BOB GETS RESULTS FOR CBCD AND CMP Performed By: #### L 500.4050, L100.0100 #### [facility] [address], [address] T PROT 7.6 g/dL Normal 5.9-8.4 [facility] Comment on above: Order Comment: Order Date: 01/12/24 Order Info: 6 - TSH Order Info: 3023-09 T4F JN FUENTES GETS RESULTS FOR TSH AND FT4 DR. BOB GETS RESULTS FOR CBCD AND CMP Performed By: #### L 500.4050, L100.0100 #### [facility] [address] [place], [address] Urea nitrogen [Mass/Vol] 16 mg/dL Normal 4-19 [facility] Comment on above: Order Comment: Order Date: 01/12/24 Order Info: 30163 - TSH Order Info: 3023-09 - T4F JN FUENTES GETS RESULTS FOR TSH AND FT4 DR. BOB GETS RESULTS FOR CBCD AND CMP Performed By: #### L 500.4050, L100.0100 #### [facility] [address] [place], [address] T4 Free Directon 07-04-2024 T4 FREE DIRECT 1.30 ng/dL Normal 0.76-1.46 [facility] Comment on above: Order Comment: Order Date: 01/12/24 Order Info: 3016-3 - TSH Order Info: 3024-7 - T4F JN FUENTES GETS RESULTS FOR TSH AND FT4 DR. BOB GETS RESULTS FOR CBCD AND CMP Performed By: #### L 506.0400, L501.9520 #### [facility] [address] [place], [place], [id number] Thyroid Stim Hormone (TSH)on 07-04-2024 TSH 2.430 uIU/mL Normal 0.300-4.200 [facility] Comment on above: Order Comment: Order Date: 01/12/24 Order Info: 3016-3 - TSH Order Info: 30247 - T4F JN FUENTES GETS RESULTS FOR TSH AND FT4 DR. BOB GETS RESULTS FOR CBCD AND CMP Performed By: #### L 506.0400, L509.9520 #### [facility] [address], [place], [id number] Absolute lymphocyte countOrd ered By: Royce Ragsdale on 01-27-2023 Lymphocytes Auto (Unsp spec) [#/Vol] 2.51 10*3/uL 0.83-4.51 [facility] Basophil percentageOrdered B y: Royce Ragsdale on 01-27-2023 Basophils/100 WBC (Bld) 0.6 % 0-1 [facility] Bilirubin [Mass/Vol] 0.30 mg/dL 0.20-1.00 [facility] Comment on above: For patients on eltr ombopag therapy, use of Dimension [place] TBIL is not recommended. Chloride [Moles/Vol] 108 mmol/L 98-107 [facility] Eosinophils/100 WBC (Bld) 3.5 % 0-5 [facility] Glucose [Mass/Vol] 80 mg/dL 74-106 [facility] Neutrophils (Bld) [#/Vol] 4.4 10*3/uL 2.0-7.7 [facility] Neutrophils/100 WBC (Bld) 55.5 % 47-70 [facility] Potassium [Moles/Vol] 4.2 mmol/L 3.5-5.1 [facility] Protein [Mass/Vol] 7.5 g/dL 6.4-8.2 [facility] Sodium [Moles/Vol] 140 mmol/L 136-145 [facility] WBC (Bld) [#/Vol] 8.0 10*3/uL 4.4-11.0 [facility] Blood erythrocytes count (nu mber/volume)Ordered By: Royce Ragsdale on 01-27-2023 RBC (Bld) [#/Vol] 5.20 10*6/uL 4.6-6.2 [facility] Blood hemoglobin measurement (mass/volume)Ordered By: Royce Ragsdale on 01-27-2023 Hemoglobin (Bld) [Mass/Vol] 15.5 g/dL 13.0-16.5 [facility] Blood lymphocytes/100 leukoc ytesOrdered By: Royce Ragsdale on 01-27-2023 Lymphocytes/100 WBC (Bld) 31.3 % 19-41 [facility] Blood monocytes/100 leukocyt esOrdered By: Royce Ragsdale on 01-27-2023 Monocytes/100 WBC (Bld) 9.0 % 0-10 [facility] Blood platelet mean volumeOr dered By: Royce Ragsdale on 01-27-2023 Platelet mean volume (Bld) [Entitic vol] 9.6 fL 6.2-12.0 [facility] Determination of erythrocyte mean corpuscular volume (MCV)Ordered By: Royce Ragsdale on 01-27-2023 MCV (RBC) [Entitic vol] 91.2 fL 80-94 [facility] Hematocrit Auto (Bld) [Volum e fraction]Ordered By: Royce Ragsdale on 01-27-2023 Hematocrit (Bld) [Volume fraction] 47.4 % 40-54 [facility] - Chemistry and C hemistry - challengeOrdered By: Royce Ragsdale on 01-27-2023 ALP [Catalytic activity/Vol] 63 U/L 45-117 [facility] ALT [Catalytic activity/Vol] 31 U/L 16-61 [facility] CO2 [Moles/Vol] 27.0 mmol/L 21.0-32.0 [facility] Free T4 [Mass/Vol] 1.16 ng/dL 0.76-1.46 [facility] Globulin (S) [Mass/Vol] 3.6 g/dL 2.2-4.2 [facility] Urea nitrogen/Creatinine [Mass ratio] 13.7 mg/mg 10-20 [facility] - Hematology and Cell countsOrdered By: Royce Ragsdale on 01-27-2023 Erythrocyte distribution width (RBC) [Entitic vol] 42.4 fL 35.1-43.9 [facility] Erythrocyte distribution width (RBC) [Ratio] 12.6 % 11.6-14.6 [facility] Immature granulocytes/100 WBC (Bld) 0.100 % 0.0-0.9 [facility] Comment on above: IG% - Immature Granu locytes (promyelocytes, myelocytes and metamyelocytes) > 1% indicates that a LEFT SHIFT is Present. MCH (RBC) [Entitic mass] 29.8 pg 27.0-32.0 [facility] Nucleated RBC/100 WBC (Bld) [Ratio] 0 % 0-5 [facility] MCHC Auto (RBC) [Mass/Vol]Or dered By: Royce Ragsdale on 01-27-2023 MCHC (RBC) [Mass/Vol] 32.7 g/dL 32-36 [facility] No Panel InformationOrdered By: Royce Ragsdale on 01-27-2023 Estimated GFR (MDRD) Amer 82 mL/min >60 [facility] Comment on above: GFR Calc Estimated GFR (MDRD) Non-Af Amer 68 mL/min >60 [facility] Comment on above: Non- GFR Calc Thyroid Stimulating Hormone (TSH) 0.66 uIU/mL 0.358-3.74 [facility] Platelets bldOrdered By: Thong Ragsdale on 01-27-2023 Platelets (Bld) [#/Vol] 285 10*3/uL 150-450 [facility] Serum or plasma albumin april urement (mass/volume)Ordered By: Royce Ragsdale on 01-27-2023 Albumin [Mass/Vol] 3.9 g/dL 3.2-5.0 [facility] Serum or plasma albumin/glob ulin mass ratioOrdered By: Royce Ragsdale on 01-27-2023 Albumin/Globulin [Mass ratio] 1.1 {ratio} 0.9-2.4 [facility] Serum or plasma calcium april urement (mass/volume)Ordered By: Royce Ragsdale on 01-27-2023 Calcium [Mass/Vol] 8.9 mg/dL 8.5-10.1 [facility] Serum or plasma creatinine m easurement (mass/volume)Ordered By: Royce Ragsdale on 01-27-2023 Creatinine [Mass/Vol] 1.17 mg/dL 0.70-1.30 [facility] Comment on above: The validity of the calculated GFR & GFRAA in patients over 70 years has not been determined. Clinical correlation is essential. Serum or plasma urea nitroge n measurement (mass/volume)Ordered By: Royce Ragsdale on 01-27-2023 Urea nitrogen [Mass/Vol] 16 mg/dL 7-18 [facility] Thin prep Papanicolaou smear with manual screeningOrdered By: Royce Ragsdale on 01-27-2023 Thin prep Papanicolaou smear with manual screening 18 U/L 15-37 [facility] Thin prep Papanicolaou smear with manual screening 5 5-15 [facility] Basophil percentageOrdered B y: Royce Ragsdale on 11-17-2022 Cholesterol [Mass/Vol] 187 mg/dL <200 [facility] Comment on above: <200 mg/dL Desirable 200-240 mg/dL Borderline >240 mg/dL High Risk Testosterone [Mass/Vol] 639.86 ng/dL [facility] Comment on above: CENTRAL 90% REFERENC E RANGES MALE AGE <50 197.44 - 669.58 ng/dL MALE AGE > or = 50 187.72 - 684.19 ng/dL FEMALE AGE <50 8.38 - 35.01 ng/dL FEMALE AGE > or = 50 <7.00 - 35.92 ng/dL Effective as of 10/02/20 Triglyceride [Mass/Vol] 144 mg/dL <199 [facility] Comment on above: The drugs N-Acetylcy steine and Metamizole may falsely depress this assay.Serum Triglycerides Reference Interval Normal <150 mg/dL Borderline high 150 - 199 mg/dL High 200 - 499 mg/dL Very High > or = 500 mg/dL Erythrocyte sedimentation ra teOrdered By: Royce Ragsdale on 11-17-2022 ESR (Bld) [Velocity] 10 mm/h 0-20 [facility] Iron measurement (mass/mass) Ordered By: Royce Ragsdale on 11-17-2022 Iron (Unsp spec) [Mass/Mass] 136 ug/dL 65-175 [facility] - Chemistry and C hemistry - challengeOrdered By: Royce Ragsdale on 11-17-2022 Cobalamin (Vitamin B12) [Mass/Vol] 258 pg/mL 211-911 [facility] Free T4 [Mass/Vol] 1.61 ng/dL 0.76-1.46 [facility] No Panel InformationOrdered By: Royce Ragsdale on 11-17-2022 Prostate Specific Antigen Screen 2.47 ng/mL 0.00-4.00 [facility] Comment on above: This test was perfor med using the TPSA assay method [facility]. Values obtained with differentassay methods cannot be used interchangably.When changing PSA assays in the course of monitoring apatient, additional sequential testing should be carriedout to confirm baseline values. Thyroid Stimulating Hormone (TSH) 0.04 uIU/mL 0.358-3.74 [facility] Vitamin D 25-Hydroxy 71.4 ng/mL [facility] Comment on above: Vitamin D 25(OH) Sta tus Range Deficiency <20 ng/mL (50nmol/L) Insufficiency 20 - 30 ng/mL (50 - 75 nmol/L) Sufficiency 30 - 100 ng/mL (75 - 250 nmol/L) Toxicity >100 ng/mL (>250 nmol/L) Serum or plasma cholesterol in HDL measurement (mass/volume)Ordered By: Royce Ragsdale on 11-17-2022 Cholesterol in HDL [Mass/Vol] 44 mg/dL >40 [facility] Comment on above: The drugs N-Acetylcy steine and Metamizole may falsely depress this assay. Reference Range HDL <40 mg/dL Low HDL Cholesterol HDL >or= 60 mg/dL High HDL Cholesterol Serum or plasma cholesterol in VLDL measurement (mass/volume)Ordered By: Royce Ragsdale on 11-17-2022 Cholesterol in VLDL [Mass/Vol] 29 mg/dL 5-40 [facility] Serum or plasma low density lipoprotein (LDL) cholesterol measurement (mass/volume)Ordered By: Royce Ragsdale on 11-17-2022 Cholesterol in LDL [Mass/Vol] 114 mg/dL 0-130 [facility] Absolute lymphocyte countOrd ered By: Dr. Bob on 08-08-2022 Lymphocytes Auto (Unsp spec) [#/Vol] 2.10 10*3/uL 0.83-4.51 [facility] Basophil percentageOrdered B y: Dr. Bob on 08-08-2022 Basophils/100 WBC (Bld) 0.8 % 0-1 [facility] Bilirubin [Mass/Vol] 0.50 mg/dL 0.20-1.00 [facility] Comment on above: For patients on eltr ombopag therapy, use of Dim[place] TBIL is not recommended. Chloride [Moles/Vol] 109 mmol/L 98-107 [facility] Eosinophils/100 WBC (Bld) 2.6 % 0-5 [facility] Glucose [Mass/Vol] 102 mg/dL 74-106 [facility] Comment on above: Fasting Glucose resu lt from 100 to 125 mg/dL suggests IMPAIRED HOMEOSTASIS per A.D.A. criteria. Neutrophils (Bld) [#/Vol] 4.5 10*3/uL 2.0-7.7 [facility] Neutrophils/100 WBC (Bld) 60.2 % 47-70 [facility] Potassium [Moles/Vol] 4.1 mmol/L 3.5-5.1 [facility] Protein [Mass/Vol] 7.7 g/dL 6.4-8.2 [facility] Sodium [Moles/Vol] 142 mmol/L 136-145 [facility] WBC (Bld) [#/Vol] 7.4 10*3/uL 4.4-11.0 [facility] Blood erythrocytes count (nu mber/volume)Ordered By: Dr. Bob on 08-08-2022 RBC (Bld) [#/Vol] 5.18 10*6/uL 4.6-6.2 [facility] Blood hemoglobin measurement (mass/volume)Ordered By: Dr. Bob on 08-08-2022 Hemoglobin (Bld) [Mass/Vol] 15.5 g/dL 13.0-16.5 [facility] Blood lymphocytes/100 leukoc ytesOrdered By: Dr. Bob on 08-08-2022 Lymphocytes/100 WBC (Bld) 28.2 % 19-41 [facility] Blood monocytes/100 leukocyt esOrdered By: Dr. Bob on 08-08-2022 Monocytes/100 WBC (Bld) 8.1 % 0-10 [facility] Blood platelet mean volumeOr dered By: Dr. Bob on 08-08-2022 Platelet mean volume (Bld) [Entitic vol] 9.7 fL 6.2-12.0 [facility] Determination of erythrocyte mean corpuscular volume (MCV)Ordered By: Dr. Bob on 08-08-2022 MCV (RBC) [Entitic vol] 89.2 fL 80-94 [facility] Hematocrit Auto (Bld) [Volum e fraction]Ordered By: Dr. Bob on 08-08-2022 Hematocrit (Bld) [Volume fraction] 46.2 % 40-54 [facility] - Chemistry and C hemistry - challengeOrdered By: Dr. Bob on 08-08-2022 ALP [Catalytic activity/Vol] 65 U/L 45-117 [facility] ALT [Catalytic activity/Vol] 33 U/L 16-61 [facility] CO2 [Moles/Vol] 27.0 mmol/L 21.0-32.0 [facility] Globulin (S) [Mass/Vol] 3.7 g/dL 2.2-4.2 [facility] Urea nitrogen/Creatinine [Mass ratio] 15.3 mg/mg 10-20 [facility] - Hematology and Cell countsOrdered By: Dr. Bob on 08-08-2022 Erythrocyte distribution width (RBC) [Entitic vol] 40.8 fL 35.1-43.9 [facility] Erythrocyte distribution width (RBC) [Ratio] 12.4 % 11.6-14.6 [facility] Immature granulocytes/100 WBC (Bld) 0.100 % 0.0-0.9 [facility] Comment on above: IG% - Immature Granu locytes (promyelocytes, myelocytes and metamyelocytes) > 1% indicates that a LEFT SHIFT is Present. MCH (RBC) [Entitic mass] 29.9 pg 27.0-32.0 [facility] Nucleated RBC/100 WBC (Bld) [Ratio] 0 % 0-5 [facility] MCHC Auto (RBC) [Mass/Vol]Or dered By: Dr. Bob on 08-08-2022 MCHC (RBC) [Mass/Vol] 33.5 g/dL 32-36 [facility] No Panel InformationOrdered By: Dr. Bob on 08-08-2022 Estimated GFR (MDRD) Amer 77 mL/min >60 [facility] Comment on above: GFR Calc Estimated GFR (MDRD) Non-Af Amer 63 mL/min >60 [facility] Comment on above: Non- GFR Calc Platelets bldOrdered By: Dr. Bob on 08-08-2022 Platelets (Bld) [#/Vol] 302 10*3/uL 150-450 [facility] Serum or plasma albumin april urement (mass/volume)Ordered By: Dr. Bob on 08-08-2022 Albumin [Mass/Vol] 4.0 g/dL 3.2-5.0 [facility] Serum or plasma albumin/glob ulin mass ratioOrdered By: Dr. Bob on 08-08-2022 Albumin/Globulin [Mass ratio] 1.1 {ratio} 0.9-2.4 [facility] Serum or plasma calcium april urement (mass/volume)Ordered By: Dr. Bob on 08-08-2022 Calcium [Mass/Vol] 9.1 mg/dL 8.5-10.1 [facility] Serum or plasma creatinine m easurement (mass/volume)Ordered By: Dr. Bob on 08-08-2022 Creatinine [Mass/Vol] 1.24 mg/dL 0.70-1.30 [facility] Comment on above: The validity of the calculated GFR & GFRAA in patients over 70 years has not been determined. Clinical correlation is essential. Serum or plasma urea nitroge n measurement (mass/volume)Ordered By: Dr. Bob on 08-08-2022 Urea nitrogen [Mass/Vol] 19 mg/dL 7-18 [facility] Thin prep Papanicolaou smear with manual screeningOrdered By: Dr. Bob on 08-08-2022 Thin prep Papanicolaou smear with manual screening 23 U/L 15-37 [facility] Thin prep Papanicolaou smear with manual screening 6 5-15 [facility] Absolute lymphocyte counton 02-14-2022 Lymphocytes Auto (Unsp spec) [#/Vol] 2.19 10*3/uL 0.83-4.51 [facility] Work Phone: Basophil percentageon 2021 Basophils/100 WBC (Bld) 0.9 % 0-1 [facility] Work Phone: Bilirubin [Mass/Vol] 0.50 mg/dL 0.20-1.00 [facility] Work Phone: Comment on above: For patients on eltr ombopag therapy, use of [place] TBIL is not recommended. Chloride [Moles/Vol] 105 mmol/L 98-107 [facility] Work Phone: Eosinophils/100 WBC (Bld) 4.5 % 0-5 [facility] Work Phone: Glucose [Mass/Vol] 100 mg/dL 74-106 [facility] Work Phone: Comment on above: Fasting Glucose resu lt from 100 to 125 mg/dL suggests IMPAIRED HOMEOSTASIS per A.D.A. criteria. Neutrophils (Bld) [#/Vol] 3.5 10*3/uL 2.0-7.7 [facility] Work Phone: Neutrophils/100 WBC (Bld) 52.5 % 47-70 [facility] Work Phone: Potassium [Moles/Vol] 4.3 mmol/L 3.5-5.1 [facility] Work Phone: Protein [Mass/Vol] 7.6 g/dL 6.4-8.2 [facility] Work Phone: Sodium [Moles/Vol] 138 mmol/L 136-145 [facility] Work Phone: WBC (Bld) [#/Vol] 6.7 10*3/uL 4.4-11.0 [facility] Work Phone: Blood erythrocytes count (nu mber/volume)on 02-14-2022 RBC (Bld) [#/Vol] 5.27 10*6/uL 4.6-6.2 [facility] Work Phone: Blood hemoglobin measurement (mass/volume)on 02-14-2022 Hemoglobin (Bld) [Mass/Vol] 16.1 g/dL 13.0-16.5 [facility] Work Phone: Blood lymphocytes/100 leukoc yteson 02-14-2022 Lymphocytes/100 WBC (Bld) 32.7 % 19-41 [facility] Work Phone: [phone] Blood monocytes/100 leukocyt eson 02-14-2022 Monocytes/100 WBC (Bld) 9.1 % 0-10 [facility] Work Phone: Blood platelet mean volumeon 02-14-2022 Platelet mean volume (Bld) [Entitic vol] 9.6 fL 6.2-12.0 [facility] Work Phone: Determination of erythrocyte mean corpuscular volume (MCV)on 02-14-2022 MCV (RBC) [Entitic vol] 89.9 fL 80-94 [facility] Work Phone: Hematocrit Auto (Bld) [Volum e fraction]on 02-14-2022 Hematocrit (Bld) [Volume fraction] 47.4 % 40-54 [facility] Work Phone: [phone] Laboratory - Chemistry and C hemistry - challengeon 02-14-2022 ALP [Catalytic activity/Vol] 64 U/L 45-117 [facility] Work Phone: ALT [Catalytic activity/Vol] 36 U/L 16-61 [facility] Work Phone: [phone] CO2 [Moles/Vol] 25.0 mmol/L 21.0-32.0 [facility] Work Phone: [phone] Globulin (S) [Mass/Vol] 3.3 g/dL 2.2-4.2 [facility] Work Phone: [phone] Urea nitrogen/Creatinine [Mass ratio] 15.2 mg/mg 10-20 [facility] Work Phone: [phone] Laboratory - Hematology and Cell countson 02-14-2022 Erythrocyte distribution width (RBC) [Entitic vol] 40.7 fL 35.1-43.9 [facility] Work Phone: [phone] Erythrocyte distribution width (RBC) [Ratio] 12.3 % 11.6-14.6 [facility] Work Phone: [phone] Immature granulocytes/100 WBC (Bld) 0.300 % 0.0-0.9 [facility] Work Phone: [phone] Comment on above: IG% - Immature Granu locytes (promyelocytes, myelocytes and metamyelocytes) > 1% indicates that a LEFT SHIFT is Present. MCH (RBC) [Entitic mass] 30.6 pg 27.0-32.0 [facility] Work Phone: [phone] Nucleated RBC/100 WBC (Bld) [Ratio] 0 % 0-5 [facility] Work Phone: [phone] MCHC Auto (RBC) [Mass/Vol]on 02-14-2022 MCHC (RBC) [Mass/Vol] 34.0 g/dL 32-36 [facility] Work Phone: [phone] Panel Informationon 02-14 Estimated GFR (MDRD) Amer 100 mL/min >60 [facility] Work Phone: [phone] Comment on above: GFR Calc Estimated GFR (MDRD) Non-Af Amer 83 mL/min >60 [facility] Work Phone: [phone] Comment on above: Non- GFR Calc Platelets bldon 02-14-2022 Platelets (Bld) [#/Vol] 295 10*3/uL 150-450 [facility] Work Phone: [phone] Serum or plasma albumin april urement (mass/volume)on 02-14-2022 Albumin [Mass/Vol] 4.3 g/dL 3.2-5.0 [facility] Work Phone: [phone] Serum or plasma albumin/glob ulin mass ratioon 02-14-2022 Albumin/Globulin [Mass ratio] 1.3 {ratio} 0.9-2.4 [facility] Work Phone: [phone] Serum or plasma calcium april urement (mass/volume)on 02-14-2022 Calcium [Mass/Vol] 9.4 mg/dL 8.5-10.1 [facility] Work Phone: [phone] Serum or plasma creatinine m easurement (mass/volume)on 02-14-2022 Creatinine [Mass/Vol] 0.98 mg/dL 0.70-1.30 [facility] Work Phone: Comment on above: The validity of the calculated GFR & GFRAA in patients over 70 years has not been determined. Clinical correlation is essential. Serum or plasma urea nitroge n measurement (mass/volume)on 02-14-2022 Urea nitrogen [Mass/Vol] 15 mg/dL 7-18 [facility] Work Phone: [phone] Thin prep Papanicolaou smear with manual screeningon 02-14-2022 Thin prep Papanicolaou smear with manual screening 23 U/L 15-37 [facility] Work Phone: [phone] Thin prep Papanicolaou smear with manual screening 8 5-15 [facility] Work Phone: [phone] Laboratory - Chemistry and C hemistry - challengeon 10-08-2021 Free T4 [Mass/Vol] 1.31 ng/dL 0.76-1.46 [facility] Work Phone: [phone] No Panel Informationon 10-08 Thyroid Stimulating Hormone (TSH) 0.95 uIU/mL 0.358-3.74 [facility] Work Phone: [phone] Absolute lymphocyte counton 08-07-2021 Lymphocytes Auto (Unsp spec) [#/Vol] 2.44 10*3/uL 0.83-4.51 [facility] Work Phone: Basophil percentageon 2021 Basophils/100 WBC (Bld) 0.9 % 0-1 [facility] Work Phone: Bilirubin [Mass/Vol] 0.50 mg/dL 0.20-1.00 [facility] Work Phone: Comment on above: For patients on eltr ombopag therapy, use of [place] TBIL is not recommended. Chloride [Moles/Vol] 105 mmol/L 98-107 [facility] Work Phone: Cholesterol [Mass/Vol] 200 mg/dL <200 [facility] Work Phone: Comment on above: <200 mg/dL Desirable 200-240 mg/dL Borderline >240 mg/dL High Risk Eosinophils/100 WBC (Bld) 2.9 % 0-5 [facility] Work Phone: Glucose [Mass/Vol] 88 mg/dL 74-106 [facility] Work Phone: Neutrophils (Bld) [#/Vol] 3.6 10*3/uL 2.0-7.7 [facility] Work Phone: Neutrophils/100 WBC (Bld) 52.6 % 47-70 [facility] Work Phone: Potassium [Moles/Vol] 3.7 mmol/L 3.5-5.1 [facility] Work Phone: Protein [Mass/Vol] 7.4 g/dL 6.4-8.2 [facility] Work Phone: Sodium [Moles/Vol] 138 mmol/L 136-145 [facility] Work Phone: Testosterone [Mass/Vol] 354.84 ng/dL [facility] Work Phone: Comment on above: CENTRAL 90% REFERENC E RANGES MALE AGE <50 197.44 - 669.58 ng/dL MALE AGE > or = 50 187.72 - 684.19 ng/dL FEMALE AGE <50 8.38 - 35.01 ng/dL FEMALE AGE > or = 50 <7.00 - 35.92 ng/dL Effective as of 10/02/20 Triglyceride [Mass/Vol] 137 mg/dL <199 [facility] Work Phone: Comment on above: The drugs N-Acetylcy steine and Metamizole may falsely depress this assay.Serum Triglycerides Reference Interval Normal <150 mg/dL Borderline high 150 - 199 mg/dL High 200 - 499 mg/dL Very High > or = 500 mg/dL WBC (Bld) [#/Vol] 6.9 10*3/uL 4.4-11.0 [facility] Work Phone: [phone] Blood erythrocytes count (nu mber/volume)on 08-07-2021 RBC (Bld) [#/Vol] 4.92 10*6/uL 4.6-6.2 [facility] Work Phone: Blood hemoglobin measurement (mass/volume)on 08-07-2021 Hemoglobin (Bld) [Mass/Vol] 15.0 g/dL 13.0-16.5 [facility] Work Phone: Blood lymphocytes/100 leukoc yteson 08-07-2021 Lymphocytes/100 WBC (Bld) 35.4 % 19-41 [facility] Work Phone: [phone] Blood monocytes/100 leukocyt eson 08-07-2021 Monocytes/100 WBC (Bld) 8.1 % 0-10 [facility] Work Phone: [phone] Blood platelet mean volumeon 08-07-2021 Platelet mean volume (Bld) [Entitic vol] 9.2 fL 6.2-12.0 [facility] Work Phone: [phone] Determination of erythrocyte mean corpuscular volume (MCV)on 08-07-2021 MCV (RBC) [Entitic vol] 89.8 fL 80-94 [facility] Work Phone: [phone] Hematocrit Auto (Bld) [Volum e fraction]on 08-07-2021 Hematocrit (Bld) [Volume fraction] 44.2 % 40-54 [facility] Work Phone: [phone] Laboratory - Chemistry and C hemistry - challengeon 08-07-2021 ALP [Catalytic activity/Vol] 56 U/L 45-117 [facility] Work Phone: [phone] ALT [Catalytic activity/Vol] 33 U/L 16-61 [facility] Work Phone: [phone] CO2 [Moles/Vol] 26.0 mmol/L 21.0-32.0 [facility] Work Phone: [phone] Globulin (S) [Mass/Vol] 3.5 g/dL 2.2-4.2 [facility] Work Phone: [phone] Urea nitrogen/Creatinine [Mass ratio] 16.2 mg/mg 10-20 [facility] Work Phone: [phone] Laboratory - Hematology and Cell countson 08-07-2021 Erythrocyte distribution width (RBC) [Entitic vol] 41.7 fL 35.1-43.9 [facility] Work Phone: [phone] Erythrocyte distribution width (RBC) [Ratio] 12.7 % 11.6-14.6 [facility] Work Phone: [phone] Immature granulocytes/100 WBC (Bld) 0.100 % 0.0-0.9 [facility] Work Phone: [phone] Comment on above: IG% - Immature Granu locytes (promyelocytes, myelocytes and metamyelocytes) > 1% indicates that a LEFT SHIFT is Present. MCH (RBC) [Entitic mass] 30.5 pg 27.0-32.0 [facility] Work Phone: [phone] Nucleated RBC/100 WBC (Bld) [Ratio] 0 % 0-5 [facility] Work Phone: [phone] MCHC Auto (RBC) [Mass/Vol]on 08-07-2021 MCHC (RBC) [Mass/Vol] 33.9 g/dL 32-36 [facility] Work Phone: [phone] Panel Informationon 08-07 Estimated GFR (MDRD) Amer 82 mL/min >60 [facility] Work Phone: Comment on above: GFR Calc Estimated GFR (MDRD) Non-Af Amer 68 mL/min >60 [facility] Work Phone: Comment on above: Non- GFR Calc Prostate Specific Antigen Screen 1.80 ng/mL 0.00-4.00 [facility] Work Phone: Comment on above: This test was perfor med using the TPSA assay method for [employer] chemistry system. Values obtained with differentassay methods cannot be used interchangably.When changing PSA assays in the course of monitoring apatient, additional sequential testing should be carriedout to confirm baseline values. Thyroid Stimulating Hormone (TSH) 13.60 uIU/mL 0.358-3.74 [facility] Work Phone: Vitamin D 25-Hydroxy 55.4 ng/mL [facility] Work Phone: Comment on above: Vitamin D 25(OH) Sta tus Range Deficiency <20 ng/mL (50nmol/L) Insufficiency 20 - 30 ng/mL (50 - 75 nmol/L) Sufficiency 30 - 100 ng/mL (75 - 250 nmol/L) Toxicity >100 ng/mL (>250 nmol/L) Platelets bldon 08-07-2021 Platelets (Bld) [#/Vol] 255 10*3/uL 150-450 [facility] Work Phone: [phone] Serum or plasma albumin april urement (mass/volume)on 08-07-2021 Albumin [Mass/Vol] 3.9 g/dL 3.2-5.0 [facility] Work Phone: [phone] Serum or plasma albumin/glob ulin mass ratioon 08-07-2021 Albumin/Globulin [Mass ratio] 1.1 {ratio} 0.9-2.4 [facility] Work Phone: [phone] Serum or plasma calcium april urement (mass/volume)on 08-07-2021 Calcium [Mass/Vol] 8.6 mg/dL 8.5-10.1 [facility] Work Phone: Serum or plasma cholesterol in HDL measurement (mass/volume)on 08-07-2021 Cholesterol in HDL [Mass/Vol] 43 mg/dL >40 [facility] Work Phone: Comment on above: The drugs N-Acetylcy steine and Metamizole may falsely depress this assay. Reference Range HDL <40 mg/dL Low HDL Cholesterol HDL >or= 60 mg/dL High HDL Cholesterol Serum or plasma cholesterol in VLDL measurement (mass/volume)on 08-07-2021 Cholesterol in VLDL [Mass/Vol] 27 mg/dL 5-40 [facility] Work Phone: Serum or plasma creatinine m easurement (mass/volume)on 08-07-2021 Creatinine [Mass/Vol] 1.17 mg/dL 0.70-1.30 [facility] Work Phone: Comment on above: The validity of the calculated GFR & GFRAA in patients over 70 years has not been determined. Clinical correlation is essential. Serum or plasma low density lipoprotein (LDL) cholesterol measurement (mass/volume)on 08-07-2021 Cholesterol in LDL [Mass/Vol] 130 mg/dL 0-130 [facility] Work Phone: [phone] Serum or plasma urea nitroge n measurement (mass/volume)on 08-07-2021 Urea nitrogen [Mass/Vol] 19 mg/dL 7-18 [facility] Work Phone: [phone] Thin prep Papanicolaou smear with manual screeningon 08-07-2021 Thin prep Papanicolaou smear with manual screening 24 U/L 15-37 [facility] Work Phone: [phone] Thin prep Papanicolaou smear with manual screening 7 5-15 [facility] Work Phone: [phone] Vital Signs Date Time Vital Sign Value Performing Clinician Franki honey 07-12-2019 15:52-0400 BMI (Body Mass Index) 29.16 kg/m2 [facility]12-[facility] 15:52-0400 Body [facility] 97.52 [facility] 07-12-2019 15:52-0400 BP Diastolic 91 mm[Hg] Brandi [facility] 07-12-2019 15:52-0400 BP Systolic 141 mm[Hg] [facility] 07-12-2019 15:52-0400 Pulse (Heart Rate) 77 /min Brandi [facility] 07-20-2018 16:01-0400 BMI (Body Mass Index) 29.7 kg/m2 [facility] 07-20-2018 16:01-0400 BP Diastolic 79 mm[Hg] [facility] 07-20-2018 16:01-0400 BP Systolic 125 mm[Hg] [facility] 07-20-2018 16:01-0400 Pulse (Heart Rate) 81 /min [facility] 07-20-2018 16:01-0400 Weight 99.34 kg [facility] 07-23-2017 15:48-0400 BMI (Body Mass Index) 29.21 kg/m2 [facility] 07-23-2017 15:48-0400 BP Diastolic 83 mm[Hg] [facility] 07-23-2017 15:48-0400 BP Systolic 134 mm[Hg] [facility] 07-23-2017 15:48-0400 Pulse (Heart Rate) 67 /min [facility] 07-23-2017 15:48-0400 Weight 97.7 kg [facility] Encounters Encounter Date Encounter Type Care Provider Facility Start: 12-22-2024 End: 12-22-2024 ambulatory [facility] [place] Facility:[facility] Start: 09-24-2024 End: 09-24-2024 Emergency department patient visit LENA LUQUE [facility] Start: 07-04-2024 End: 07-04-2024 ambulatory [facility] [place] Facility:[facility] Start: 01-27-2023 End: 01-27-2023 ambulatory [facility] Work Phone: Start: 01-27-2023 End: 01-27-2023 Patient encounter procedure [facility] Work Phone: Start: 11-17-2022 End: 11-17-2022 ambulatory [facility] Work Phone: Start: 11-17-2022 End: 11-17-2022 Patient encounter procedure [facility] Work Phone: Start: 08-08-2022 End: 08-08-2022 ambulatory [facility] Work Phone: Start: 08-08-2022 End: 08-08-2022 Patient encounter procedure [facility] Start: 02-14-2022 End: 02-14-2022 ambulatory [facility] Work Phone: Start: 02-14-2022 End: 02-14-2022 Patient encounter procedure [facility] Start: 10-08-2021 End: 10-08-2021 Patient encounter procedure [facility] Start: 08-07-2021 End: 08-07-2021 Patient encounter procedure [facility] Start: 07-12-2019 End: 07-12-2019 Patient encounter procedure BRANDI CRANE [facility] Start: 07-12-2019 End: 07-12-2019 Office outpatient visit 15 minutes Brandi Crane Work Phone: [facility] Comment on above: Rheumatoid arthritis involving multiple sites with positive rheumatoid factor (HCC) (Primary Dx) Start: 04-18-2019 Patient encounter procedure BRANDI MODI [facility] Start: 12-22-2018 Patient encounter procedure BRANDI MODI [facility] Start: 07-20-2018 End: 07-20-2018 Office outpatient visit 15 minutes Brandi Crane Work Phone: [facility] Comment on above: Rheumatoid arthritis involving multiple sites, unspecified rheumatoid factor presence (HCC) (Primary Dx) Start: 03-25-2018 End: 03-25-2018 Documentation procedure Russell Parikh [facility] Start: 07-24-2017 Ambulatory Russell Parikh [facility] Start: 07-23-2017 End: 07-23-2017 Office/outpatient visit, est, level 3 Brandi Crane Work Phone: [facility] Start: 06-26-2017 Ambulatory Russell Parikh [facility] Plan of Treatment Date Care Activity Detail Author Start: 11-08-2019 Influenza vaccinatio n given Sequential Influenza Vaccine (Season Ended) [facility] Start: 07-12-2019 End: 07-12-2019 Office Visit 07/12/2019 Office Visit Orthopedic Surgery Brandi Crane MD [address] [place] [address] [phone] [facility] Start: 11-07-2018 Influenza vaccinatio n given SEQUENTIAL INFLUENZA VACCINE (Season Ended) [facility] Start: 07-20-2018 End: 07-20-2018 Ambulatory 07/20/2018 Office Visit Orthopedic Surgery Brandi Crane MD [address] [place] [address] [phone] [facility] Start: 11-07-2017 Influenza vaccination SEQUENTI AL INFLUENZA VACCINE (Season Ended) [facility] Start: 11-07-2017 Influenza vaccinatio n given SEQUENTIAL INFLUENZA VACCINE (#1) [facility] Start: 07-23-2017 End: 07-23-2017 Ambulatory 07/23/2017 Office Visit Orthopedic Surgery Brandi Crane MD [address] [place] [address] [phone] [facility] Start: 11-07-2016 Influenza vaccination SEQUENTI AL INFLUENZA VACCINE (#1) [facility] Start: 2012 Administration of he rpes zoster vaccine Zoster Vaccines (1 of 2) [facility] Start: 1965 History and physical examination, annual for health maintenance Wellness Visit [facility] Start: 1962 Hepatitis C antibody , confirmatory test HEPATITIS C SCREENING [facility] Start: 1962 Prostate specific antigen measurement PSA Level [facility] Start: 1962 Protein mass conc [facility] Start: 1962 Screening for malign ant neoplasm of colon Colorectal Cancer Screening: Colonoscopy [facility] Start: 1962 HEPATITIS C SCREENING HEPATITIS C SC REENING [facility] Start: 1962 Screening colonoscopy COLONOSCOPY [facility] Start: 1962 End: 1962 Tetanus vaccination [facility] End: 07-21-2019 Complete blood count with white cell differential, manual CBC and Differential Routine Rheumatoid arthritis involving multiple sites, unspecified rheumatoid factor presence (HCC) 1 Occurrences starting 07/20/2018 until 07/21/2019 [facility] Comment on above: 1 Occurrences starti ng 07/20/2018 until 07/21/2019 End: 07-21-2019 CRP mass conc CRP, Inflammation Routine Rheumatoid arthritis involving multiple sites, unspecified rheumatoid factor presence (HCC) 1 Occurrences starting 07/20/2018 until 07/21/2019 [facility] Comment on above: 1 Occurrences starti ng 07/20/2018 until 07/21/2019 End: 07-21-2019 ESR Velocity (Bld) Sedimentation Rate Routine Rheumatoid arthritis involving multiple sites, unspecified rheumatoid factor presence (HCC) 1 Occurrences starting 07/20/2018 until 07/21/2019 [facility] Comment on above: 1 Occurrences starti ng 07/20/2018 until 07/21/2019 Payers Date Payer Category Payer Self-pay [id number] 2023 Unknown [id number] 2014 Private Health Insurance [employer]ARZA[employer] Crow[employer]D-ANY CHOICE FUND xxxxxxxxxxx 2014-Present xxxxxxxxxxx [id number] 2014 Private Health Insurance [id number] 1960 Unknown [id number] 1960 Unknown [id number] 1962 Unknown [id number] 1962 Unknown [id number] Unknown [id number] Unknown [id number] Social History Date Type Detail Facility Start: 07-23-2017 End: 07-12-2019 Tobacco smoking status NHIS Never smoker [facility] Sex Assigned At Not on file [facility] Start: 01-11-2015 Alcohol Comment 2 beers each day [facility] Start: 07-12-2019 Alcohol intake Current drinke r of alcohol (finding) [facility] Start: 1960 Sex Assigned At Male [facility] Evaluation note Note Date & Type Note Facility Evaluation note No assessment information availa ble [facility] Work Phone: Assessments Diagnosis Seropositive rheumatoid [...] Crane MD - 07/20/2018 4:38 PM EDT [facility]. Name: Juan M Adkins Date:07/20/18 [id number] :1960 Allergies: Penicillins Medications: Current Outpatient Medications: [...] this chart may have been created with ebookpie voice recognition software. Occasional wrong-word or sound-like substitutions may have occurred due to inherent limitations of the voice recognition software. Please read the chart carefully and recognize, using context, where the substitutions have occurred. Brandi Crane MD documented in this encounter* Brandi Crane MD - 07/12/2019 4:28 PM EDT [facility]. Name: Juan M Adkins Date:07/12/19 [id number] :1960 Allergies: Penicillins Medications: Current Outpatient Medications: [...] 3. I discussed with him my upcoming halfway on May 22. He should contact his PCP for either management of his RA or referral to another solid waste collector. 4. More than 50% of the 15-minute office time today was spent counseling. The ebookpie voice recognition system was used to create this record. Typographical and other errors may be present. The reader is advised to recognize these and interpret them correctly. Brandi Crane MD documented in this encounter Advance Directives No Advanced Directives Records FoundDocuments on File Type Date Recorded Patient [employer] Expl anation Advance Directives and Living Will [...] section and content) DATE CREATED AUTHOR 07/23/2019 [facility] DATE CREATED AUTHOR AUTHOR'S ORGANIZ ATION 09/30/2024 [facility] DATE CREATED AUTHOR AUTHOR'S ORGANIZ ATION 01/06/2025 [facility] Goals (unrecognized section and content) Goals may [...] BE BASED ON THE PRIMARY CLINICAL RECORDS. [facility], [facility]. provides no warranty or guarantee of the accuracy or completeness of information in this document.
--- NOTE | 2025-02-15 19:03 | STRESSREP_ITS ---
Stress Test Report Exercise myocardial perfusion stress test. [ 64]-year-old [male] with a history of [dyspnea]. Stress protocol: Resting EKG demonstrates sinus bradycardia with a rate of [55] bpm resting blood pressure is [118/84] mmHg. Intervals normal on resting EKG, without evidence of prior infarction or ongoing ischemia. The patient exercised according to the regular Shaun protocol for a total duration of [8 minutes 59 sec] attaining a maximum heart rate of [136] bpm which was [86]% of maximum predicted heart rate; the maximum workload was [10.1] metabolic equivalents. At rest there were no ST or T wave changes noted to suggest ischemia and at peak exercise upsloping ST changes only were noted which did not meet the criteria for ischemia. No clinical angina was noted the test was terminated due to the target heart rate being achieved/fatigue. The peak blood pressure was [174/80] mmHg. Rate- pressure product was [51480]. Myocardial perfusion protocol. [14.6] mCi of technetium 99m sestamibi was injected at rest. The patient exercised according to regular Shaun protocol for total duration of [8 minutes 59 seconds] and at peak exercise [ 44.7] mCi of technetium 99m sestamibi was injected stress images were obtained stress and rest images were reconstructed in comparing the short axis vertical long and horizontal long axis. Gated images were also obtained. Perfusion SPECT analysis: Review of the stress images demonstrate normal uptake of tracer noted in all areas of the myocardium. The resting images similarly demonstrate normal uptake of tracer noted in all areas of the myocardium. No areas of reversibility are noted to suggest ischemia no previous infarct was noted. Gated SPECT analysis: The gated ejection fraction is [62]%. Wall motion is concordantly normal. Conclusion: [Normal] exercise myocardial perfusion stress test with no evidence of ischemia.
== END | disposition home or self-care (01) ==
LOC: CVS 06:38
PROVIDERS: PCP Family Medicine; Referring Provider Family Medicine; Visit Provider Family Medicine
DX: R06.00 Dyspnea, unspecified (principal)
CPT/HCPCS: 78452; 93017; A9500; A4216